=== PATIENT | male | born 1945 | race Caucasian/White ===

== ENCOUNTER 2020-10-03 15:29 | Inpatient (IN) | payer OTHER ==
[~2020-10-03] VITALS: Ht 182.9 cm; Wt 119.5 kg
[~2020-10-03 15:29] MED LIST: ALBU18HF INH; ALPR0.5T7 PO; AMLO-150 PO; ASPI81TA45 PO; B12/1TAB2 IM; CARV6.252 PO; CETI10TA76 PO; CHOL500015 PO; DOCU250C17 PO; ENOX80SY5 SQ; FLUO20CA19 PO; FLUT16SP24 NAS; FURO-93 PO; GABA300C10 PO; HYDR-3248 PO; IPRA12.9 INH; LORA-446 PO; LORA10TA75 PO; LUBI24CA7 PO; OLME20TA17 PO; ONDA4TAB10 PO; OXYC-380 PO; POLY17PO5 PO; PROM25VI5 PO; TOBR5DRO2 EACHEYE; TRAM-47 PO; WARF-36 PO; WARF-36 PO-COUM; WARF2.5T2 PO
--- NOTE | 2020-10-03 15:50 | NUR ---
pt JUSTINA BURGOS from home for evaluation of hypoxia and increasing weakness x2 weeks pt was D/C from [facility] last month after a fall and a L leg fracture 3 months ago. pt has a hx of chronic pain after an injury about 20 years ago and has decreased mobility pt has some wounds that have been chronic and per report, transport was told by the home health RN that pt wounds are not getting better per report pt was in the 80's on RA [employer] and is not on O2 at home. pt also c/o pain as he has not taken his home pain meds today FSBS [employer] 205 pt placed on waffle mattress. no family at bedside
[2020-10-03] MEDS ORDERED: OXYcodone/APAP 10/325MG TABLET PO ONE (16:00)
[2020-10-03] MEDS ORDERED: SODIUM CHLORIDE FLUSH 10ML SYR IVF ONE (16:00)
--- NOTE | 2020-10-03 16:10 | NUR ---
Dr. Dsouza has bene to bedside for eval pt at bedside lab has been to bedside to draw. CXR at bedside
[2020-10-03 16:27] LABS: MEAN CORPUSCULAR HEMOGLOBIN 28.6 pg (27.5-34.5); MEAN CORPUSCULAR HGB CONC 31.6 g/dL (33.2-36.2); MEAN PLATELET VOLUME 8.5 fL (7.4-10.4); PLATELET COUNT 198 x10^3/uL (130-400); RED BLOOD COUNT 3.73 x10^6/uL (4.38-5.82); RED CELL DISTRIBUTION WIDTH 22.1 % (9.4-14.8)
[2020-10-03 16:33] LABS: ALANINE AMINOTRANSFERASE 13 U/L (12-78); ALBUMIN 3.1 g/dL (3.4-5.0); ANION GAP 6 mmol/L (5-15); CALCIUM 8.4 mg/dL (8.5-10.1); CHLORIDE 99 mmol/L (98-107); CREATININE 1.05 mg/dL (0.7-1.3)
[2020-10-03 16:37] LABS: ALKALINE PHOSPHATASE 92 U/L (45-117); BILIRUBIN,TOTAL 1.9 mg/dL (0.2-1.0); TOTAL PROTEIN 6.6 g/dL (6.4-8.2)
[2020-10-03] MEDS ORDERED: OXYcodone/APAP 10/325MG TABLET ONE (16:56)
[2020-10-03] MEDS ORDERED: OXYcodone IR 5MG TABLET PO ONE (17:00)
[2020-10-03] MEDS ORDERED: OXYcodone IR 5MG TABLET ONE (17:06)
--- NOTE | 2020-10-03 17:07 | NUR ---
[facility] REFUSING [facility]COC[facility] DUE TO MEDICATION MAKING PT NAUSEOUS AND NOT THE MEDICATION HER NORMALLY TAKES WHICH IS 20 MG OF OXYCODONE FOR THE PAIN. PT HAS PAIN IN BACK, LEFT LEG, LEFT ANKLE, AND PELVIS. PT PAIN 10/10
[2020-10-03] MEDS ORDERED: FUROSEMIDE 40 MG/4 ML IV ONE (17:30)
[2020-10-03 17:32] LABS: MD YES
[2020-10-03 17:37] LABS: LYMPH#(MANUAL) 1.08 x10^3/uL (1-3.4); LYMPHS% (MANUAL) 18 % (22-44); MONOS% (MANUAL) 15 % (2-9); SEG#(MANUAL) 4.02 x10^3/uL (1.8-6.8); SEGS% (MANUAL) 67 % (42-75)
[2020-10-03 17:38] LABS: <PLATELET ESTIMATE> ADEQUATE; <PLT MORPHOLOGY> NORMAL PLT MORPH; OVALOCYTES 1+
[2020-10-03 17:39] LABS: ANISOCYTOSIS 1+; HYPOCHROMIA 1+; MICROCYTOSIS 1+; STOMATOCYTES 1+
[2020-10-03] MEDS ORDERED: SODIUM CHLORIDE FLUSH 10ML SYR IVF PRN (18:00)
[2020-10-03] MEDS ORDERED: LEVO75TA5 PO (18:03)
[2020-10-03] MEDS ORDERED: ONDA4TAB7 PO (18:03)
[2020-10-03] MEDS ORDERED: OXYC20TA2 PO (18:03)
[2020-10-03] MEDS ORDERED: FUROSEMIDE 40 MG/4 ML ONE (18:05)
--- NOTE | 2020-10-03 18:21 | NUR ---
mcdonald has been inserted per order by [facility] hospitalist. well tolerated. [facility] at bedside for eval for admission
[2020-10-03] MEDS ORDERED: IPRATROPIUM HFA 17 MCG/INH INH PRN (18:30)
[2020-10-03] MEDS ORDERED: OXYcodone/APAP 10/325MG TABLET PO PRN (18:30)
[2020-10-03] MEDS ORDERED: ALBUTEROL HFA 90 MCG/SPRAY INH PRN (18:30)
[2020-10-03] MEDS ORDERED: LEVOMEFOLATE CALCIUM HOMEINJ SCH (18:30)
[2020-10-03] MEDS ORDERED: B12 HOMEINJ SCH (18:30)
[2020-10-03] MEDS ORDERED: B6 HOMEINJ SCH (18:30)
[2020-10-03 19:00] LABS: INTERNATIONAL NORMALIZED RATIO 2.18 (0.93-1.1)
[2020-10-03] MEDS ORDERED: BISACODYL 10 MG SUPP PR PRN (19:00)
[2020-10-03] MEDS ORDERED: POLYETHYLENE GLYCOL 17 GM PACKET PO PRN (19:00)
--- NOTE | 2020-10-03 19:06 | NUR ---
pt has been resting in position of comfort. admit orders have been recieved. awaiting bed assignment pt and at bedside updated on POC report to Sreekanth HOGUE
[2020-10-03] MEDS: LUBIPROSTONE 24 MCG CAPSULE PO SCH (21:00)
[2020-10-03] MEDS: OXYcodone IR 5MG TABLET PO PRN (23:30)
[2020-10-03] MEDS: SODIUM CHLORIDE FLUSH 10ML SYR IVF SCH (23:32)
[2020-10-03] MEDS: CARVEDILOL 6.25 MG TABLET PO SCH (23:33)
[2020-10-04] VITALS: BP 132/75
[2020-10-04] MEDS ORDERED: MIDO10TA PO (02:04)
[2020-10-04] MEDS ORDERED: WARF2.5T32 PO (02:04)
[2020-10-04] MEDS ORDERED: DOCU250C9 PO (02:04)
[2020-10-04] MEDS: OXYcodone IR 5MG TABLET PO PRN ×4 (04:31→20:33)
[2020-10-04 05:34] LABS: MEAN CORPUSCULAR HEMOGLOBIN 28.7 pg (27.5-34.5); MEAN CORPUSCULAR HGB CONC 31.9 g/dL (33.2-36.2); MEAN PLATELET VOLUME 8.5 fL (7.4-10.4); PLATELET COUNT 165 x10^3/uL (130-400); RED CELL DISTRIBUTION WIDTH 21.5 % (9.4-14.8)
[2020-10-04 05:49] LABS: ANION GAP 4 mmol/L (5-15); CALCIUM 8.4 mg/dL (8.5-10.1); CHLORIDE 99 mmol/L (98-107)
[2020-10-04 05:50] LABS: CREATININE 1.08 mg/dL (0.7-1.3)
[2020-10-04 06:02] LABS: MD YES
[2020-10-04 06:04] LABS: ANISOCYTOSIS 1+; EOS% (MANUAL) 2 % (1-7); HYPOCHROMIA 1+; LYMPH#(MANUAL) 1.32 x10^3/uL (1-3.4); LYMPHS% (MANUAL) 27 % (22-44); MONOS#(MANUAL) 0.64 x10^3/uL (0.3-2.7); MONOS% (MANUAL) 13 % (2-9); OVALOCYTES 1+; SEG#(MANUAL) 2.84 x10^3/uL (1.8-6.8); SEGS% (MANUAL) 58 % (42-75)
[2020-10-04 06:05] LABS: TEAR DROPS 1+
[2020-10-04 06:07] LABS: <PLATELET ESTIMATE> ADEQUATE; BASOPHILLIC STIPPLING 1+; LARGE PLATELETS 1+
[2020-10-04] MEDS: LEVOTHYROXINE 75 MCG TABLET PO SCH (06:44)
[2020-10-04] MEDS: LUBIPROSTONE 24 MCG CAPSULE PO SCH ×3 (08:44→20:25)
[2020-10-04] MEDS: CHOLECALCIFEROL 5,000u TAB PO SCH (08:45)
[2020-10-04] MEDS: CARVEDILOL 6.25 MG TABLET PO SCH ×2 (08:45→20:26)
[2020-10-04] MEDS: SENNA/DOCUSATE TABLET PO SCH (08:46)
[2020-10-04] MEDS: FUROSEMIDE 40 MG/4 ML IV SCH ×2 (08:46→18:09)
[2020-10-04] MEDS: SODIUM CHLORIDE FLUSH 10ML SYR IVF SCH ×2 (08:47→23:39)
[2020-10-04 09:00] VITALS: BP 116/69
[2020-10-04 13:35] VITALS: BP 99/69
[2020-10-04] MEDS: ONDANSETRON 4 MG TABLET PO PRN (14:21)
[2020-10-04] MEDS ORDERED: FUROSEMIDE 40 MG/4 ML IV SCH (16:00)
[2020-10-04 16:30] LABS: TROPONIN I < 0.015 ng/mL (0.000-0.045)
[2020-10-04] MEDS: WARFARIN 5 MG TABLET PO-COUM SCH (18:09)
[2020-10-04 20:40] VITALS: BP 103/47
[2020-10-05 01:13] VITALS: BP 102/62
[2020-10-05] MEDS: OXYcodone IR 5MG TABLET PO PRN ×4 (01:17→17:38)
[2020-10-05] MEDS: LEVOTHYROXINE 75 MCG TABLET PO SCH (04:58)
[2020-10-05 05:51] LABS: BASOPHILS % (AUTO) 2 % (0-1); EOSINOPHILS % (AUTO) 2 % (1-7); LYMPHOCYTES % (AUTO) 22 % (22-44); MEAN CORPUSCULAR HEMOGLOBIN 28.5 pg (27.5-34.5); MEAN CORPUSCULAR HGB CONC 31.2 g/dL (33.2-36.2); MEAN PLATELET VOLUME 8.9 fL (7.4-10.4); MONOCYTES % (AUTO) 20 % (2-9); NEUTROPHILS % (AUTO) 54 % (42-75); PLATELET COUNT 202 x10^3/uL (130-400); RED BLOOD COUNT 3.29 x10^6/uL (4.38-5.82); RED CELL DISTRIBUTION WIDTH 21.6 % (9.4-14.8)
[2020-10-05 06:03] LABS: ANION GAP 4 mmol/L (5-15); CALCIUM 8.3 mg/dL (8.5-10.1); CHLORIDE 98 mmol/L (98-107); CHOLESTEROL, TOTAL 75 mg/dL (140-239); CREATININE 1.38 mg/dL (0.7-1.3); MD NO; TRIGLYCERIDES 27 mg/dL (50-200); VLDL CHOLESTEROL 5 mg/dL (0-25)
[2020-10-05 06:04] LABS: CHOL/HDL RATIO 1.7; HDL CHOL % 57 % (26-37); HDL CHOLESTEROL (DIRECT) 43 mg/dL (40-60); LDL CHOLESTEROL,CALCULATED 27 mg/dL (54-169); LDL/HDL RATIO 0.6 (0.5-3.0)
[2020-10-05] MEDS ORDERED: MAGNESIUM SULFATE PMX 2GM/50ML 50 ML IV ONE (08:00)
[2020-10-05 08:20] VITALS: BP 106/65
[2020-10-05 08:20] LABS: TROPONIN I < 0.015 ng/mL (0.000-0.045)
[2020-10-05] MEDS: SENNA/DOCUSATE TABLET PO SCH (09:00)
[2020-10-05] MEDS: SODIUM CHLORIDE FLUSH 10ML SYR IVF SCH ×2 (09:00→21:04)
[2020-10-05] MEDS: LUBIPROSTONE 24 MCG CAPSULE PO SCH ×2 (09:36→21:05)
[2020-10-05] MEDS: FUROSEMIDE 40 MG/4 ML IV SCH (09:37)
[2020-10-05] MEDS: CHOLECALCIFEROL 5,000u TAB PO SCH (09:37)
[2020-10-05] MEDS: CARVEDILOL 6.25 MG TABLET PO SCH ×2 (09:37→21:04)
[2020-10-05 13:28] VITALS: BP 112/76
[2020-10-05 13:47] LABS: INTERNATIONAL NORMALIZED RATIO 1.65 (0.93-1.1); PROTHROMBIN TIME 17.5 Seconds (9.6-11.5)
[2020-10-05] MEDS: WARFARIN 5 MG TABLET PO-COUM SCH (17:38)
[2020-10-05 19:43] VITALS: BP 102/63
[2020-10-06] MEDS: OXYcodone IR 5MG TABLET PO PRN ×4 (00:16→19:44)
[2020-10-06 00:18] VITALS: BP 100/62
[2020-10-06] MEDS: LEVOTHYROXINE 75 MCG TABLET PO SCH (06:35)
[2020-10-06 07:21] VITALS: BP 101/65
[2020-10-06] MEDS: SODIUM CHLORIDE FLUSH 10ML SYR IVF SCH ×2 (07:36→21:28)
[2020-10-06] MEDS: SENNA/DOCUSATE TABLET PO SCH (07:36)
[2020-10-06] MEDS: LUBIPROSTONE 24 MCG CAPSULE PO SCH ×2 (08:08→21:28)
[2020-10-06] MEDS: CHOLECALCIFEROL 5,000u TAB PO SCH (08:08)
[2020-10-06 08:40] LABS: BASOPHILS % (AUTO) 2 % (0-1); EOSINOPHILS % (AUTO) 1 % (1-7); LYMPHOCYTES % (AUTO) 13 % (22-44); MEAN CORPUSCULAR HEMOGLOBIN 28.9 pg (27.5-34.5); MEAN CORPUSCULAR HGB CONC 31.7 g/dL (33.2-36.2); MEAN PLATELET VOLUME 8.3 fL (7.4-10.4); MONOCYTES % (AUTO) 18 % (2-9); NEUTROPHILS % (AUTO) 66 % (42-75); PLATELET COUNT 193 x10^3/uL (130-400); RED BLOOD COUNT 3.28 x10^6/uL (4.38-5.82); RED CELL DISTRIBUTION WIDTH 21.1 % (9.4-14.8)
[2020-10-06 08:42] LABS: MD NO
[2020-10-06 08:50] LABS: INTERNATIONAL NORMALIZED RATIO 1.8 (0.93-1.1)
[2020-10-06 08:53] LABS: CALCIUM 8.1 mg/dL (8.5-10.1)
[2020-10-06 08:59] LABS: ALANINE AMINOTRANSFERASE 11 U/L (12-78); ALBUMIN 2.9 g/dL (3.4-5.0); ALKALINE PHOSPHATASE 77 U/L (45-117); BILIRUBIN,TOTAL 1.7 mg/dL (0.2-1.0); CREATININE 0.99 mg/dL (0.7-1.3)
[2020-10-06 09:15] LABS: ANION GAP 3 mmol/L (5-15); CHLORIDE 97 mmol/L (98-107)
[2020-10-06] MEDS ORDERED: REGADENOSON 0.4 MG/5 ML SYRINGE ONE (10:10)
[2020-10-06] MEDS: CARVEDILOL 6.25 MG TABLET PO SCH ×2 (12:55→21:28)
[2020-10-06 13:16] VITALS: BP 116/78
[2020-10-06] MEDS ORDERED: WARFARIN 5 MG TABLET PO-COUM SCH (18:00)
[2020-10-06] MEDS ORDERED: WARFARIN 2 MG TABLET PO-COUM SCH (18:00)
[2020-10-06 21:05] VITALS: BP 125/79
[2020-10-07] MEDS: OXYcodone IR 5MG TABLET PO PRN ×4 (02:28→20:22)
[2020-10-07 03:00] VITALS: BP 116/62
[2020-10-07] MEDS: LEVOTHYROXINE 75 MCG TABLET PO SCH (05:43)
[2020-10-07] MEDS: ACETAMINOPHEN 325 MG TABLET PO PRN ×2 (05:44→12:01)
[2020-10-07 07:17] VITALS: BP 107/64
[2020-10-07] MEDS: SODIUM CHLORIDE FLUSH 10ML SYR IVF SCH ×2 (08:04→20:28)
[2020-10-07] MEDS: LUBIPROSTONE 24 MCG CAPSULE PO SCH ×2 (08:04→20:23)
[2020-10-07] MEDS: CARVEDILOL 6.25 MG TABLET PO SCH (08:05)
[2020-10-07] MEDS: CHOLECALCIFEROL 5,000u TAB PO SCH (08:05)
[2020-10-07] MEDS: SENNA/DOCUSATE TABLET PO SCH (08:08)
[2020-10-07] MEDS: ASPIRIN 81 MG TABLET EC PO SCH (12:01)
[2020-10-07 12:29] LABS: INTERNATIONAL NORMALIZED RATIO 1.94 (0.93-1.1); PROTHROMBIN TIME 20.5 Seconds (9.6-11.5)
[2020-10-07 12:37] VITALS: BP_SYST 79; BP_SYST 96; BP_DIAS 51; BP_DIAS 60
[2020-10-07 12:59] VITALS: BP 113/72
[2020-10-07] MEDS ORDERED: SODIUM CHLORIDE 0.9%, 500ML IVBOLUS ONE (13:00)
[2020-10-07] MEDS: ONDANSETRON 4 MG TABLET PO PRN (17:23)
[2020-10-07] MEDS ORDERED: WARFARIN 2 MG TABLET PO-COUM ONE (18:00)
[2020-10-07] MEDS: ONDANSETRON 2MG/ML, 2ML IVPush PRN (19:24)
[2020-10-07 20:15] VITALS: BP_SYST 109; BP_DIAS 67; BP_DIAS 72
[2020-10-07] MEDS: ATORVASTATIN 40 MG TABLET PO SCH (20:23)
[2020-10-07 23:26] VITALS: BP 116/74
[2020-10-07] MEDS: CARVEDILOL 3.125 MG TABLET PO SCH (23:32)
[2020-10-08 02:18] VITALS: BP 118/76
[2020-10-08] MEDS: OXYcodone IR 5MG TABLET PO PRN ×5 (02:24→23:13)
[2020-10-08 04:52] LABS: INTERNATIONAL NORMALIZED RATIO 2.08 (0.93-1.1); PROTHROMBIN TIME 21.9 Seconds (9.6-11.5)
[2020-10-08] MEDS: ASPIRIN 81 MG TABLET EC PO SCH (06:19)
[2020-10-08] MEDS: LEVOTHYROXINE 75 MCG TABLET PO SCH (06:20)
[2020-10-08 07:12] VITALS: BP_SYST 112; BP_SYST 98; BP_DIAS 38; BP_DIAS 74
[2020-10-08] MEDS: CARVEDILOL 3.125 MG TABLET PO SCH ×2 (08:17→21:07)
[2020-10-08] MEDS: SODIUM CHLORIDE FLUSH 10ML SYR IVF SCH ×2 (08:18→21:00)
[2020-10-08] MEDS: LUBIPROSTONE 24 MCG CAPSULE PO SCH ×2 (08:18→19:53)
[2020-10-08] MEDS: CHOLECALCIFEROL 5,000u TAB PO SCH (08:18)
[2020-10-08] MEDS: SENNA/DOCUSATE TABLET PO SCH (08:18)
[2020-10-08 09:02] LABS: BASOPHILS % (AUTO) 1 % (0-1); EOSINOPHILS % (AUTO) 1 % (1-7); LYMPHOCYTES % (AUTO) 10 % (22-44); MEAN CORPUSCULAR HEMOGLOBIN 28.9 pg (27.5-34.5); MEAN CORPUSCULAR HGB CONC 31.8 g/dL (33.2-36.2); MONOCYTES % (AUTO) 18 % (2-9); NEUTROPHILS % (AUTO) 69 % (42-75); PLATELET COUNT 205 x10^3/uL (130-400); RED BLOOD COUNT 3.49 x10^6/uL (4.38-5.82); RED CELL DISTRIBUTION WIDTH 21.2 % (9.4-14.8)
[2020-10-08 09:04] LABS: MD NO
[2020-10-08 09:08] LABS: CALCIUM 8.2 mg/dL (8.5-10.1); CHLORIDE 99 mmol/L (98-107); CREATININE 0.85 mg/dL (0.7-1.3)
[2020-10-08 09:17] LABS: ANION GAP 5 mmol/L (5-15)
[2020-10-08] MEDS: ONDANSETRON 2MG/ML, 2ML IVPush PRN ×2 (09:56→13:33)
[2020-10-08] MEDS ORDERED: FUROSEMIDE 20 MG/2 ML IV ONE (10:00)
[2020-10-08 13:43] VITALS: BP 118/70
[2020-10-08] MEDS ORDERED: WARFARIN 3 MG TABLET PO-COUM ONE (18:00)
[2020-10-08 19:19] VITALS: BP 112/74
[2020-10-08 21:06] VITALS: BP 107/71
[2020-10-08] MEDS: ATORVASTATIN 40 MG TABLET PO SCH (21:07)
[2020-10-08] MEDS: MELATONIN 5 MG TABLET PO PRN (21:28)
[2020-10-09 01:02] VITALS: BP 105/69
[2020-10-09] MEDS: ASPIRIN 81 MG TABLET EC PO SCH (04:10)
[2020-10-09] MEDS: LEVOTHYROXINE 75 MCG TABLET PO SCH (04:10)
[2020-10-09] MEDS: OXYcodone IR 5MG TABLET PO PRN ×4 (04:10→20:09)
[2020-10-09 05:37] LABS: INTERNATIONAL NORMALIZED RATIO 2.44 (0.93-1.1); PROTHROMBIN TIME 25.7 Seconds (9.6-11.5)
[2020-10-09 07:01] VITALS: BP 97/63
[2020-10-09] MEDS: CARVEDILOL 3.125 MG TABLET PO SCH ×2 (08:19→21:30)
[2020-10-09] MEDS: SODIUM CHLORIDE FLUSH 10ML SYR IVF SCH ×2 (08:22→20:40)
[2020-10-09] MEDS: CHOLECALCIFEROL 5,000u TAB PO SCH (08:22)
[2020-10-09] MEDS: LUBIPROSTONE 24 MCG CAPSULE PO SCH ×2 (08:23→20:40)
[2020-10-09] MEDS: SENNA/DOCUSATE TABLET PO SCH (08:23)
[2020-10-09 12:17] VITALS: BP 110/72
[2020-10-09] MEDS: ONDANSETRON 2MG/ML, 2ML IVPush PRN ×2 (13:48→17:28)
[2020-10-09] MEDS ORDERED: WARFARIN 2.5 MG TABLET PO-COUM ONE (18:00)
[2020-10-09 20:08] VITALS: BP 107/67
[2020-10-09 21:30] VITALS: BP 118/71
[2020-10-09] MEDS: ATORVASTATIN 40 MG TABLET PO SCH (21:30)
[2020-10-10] MEDS: OXYcodone IR 5MG TABLET PO PRN ×4 (02:18→18:48)
[2020-10-10 02:20] VITALS: BP 127/79
[2020-10-10] MEDS: ONDANSETRON 4 MG TABLET PO PRN ×2 (02:23→02:24)
[2020-10-10] MEDS: ONDANSETRON 2MG/ML, 2ML IVPush PRN ×2 (02:26→09:30)
[2020-10-10] MEDS: LEVOTHYROXINE 75 MCG TABLET PO SCH (04:11)
[2020-10-10] MEDS: ASPIRIN 81 MG TABLET EC PO SCH (04:11)
[2020-10-10] MEDS: MELATONIN 5 MG TABLET PO PRN (04:11)
[2020-10-10 06:03] LABS: MEAN CORPUSCULAR HEMOGLOBIN 28.5 pg (27.5-34.5); MEAN CORPUSCULAR HGB CONC 32.3 g/dL (33.2-36.2); MEAN PLATELET VOLUME 9.3 fL (7.4-10.4); PLATELET COUNT 195 x10^3/uL (130-400); RED CELL DISTRIBUTION WIDTH 21.3 % (9.4-14.8)
[2020-10-10 06:12] LABS: CHLORIDE 99 mmol/L (98-107)
[2020-10-10 06:18] LABS: ANION GAP 3 mmol/L (5-15); CALCIUM 8.5 mg/dL (8.5-10.1); CREATININE 0.89 mg/dL (0.7-1.3)
[2020-10-10 06:19] LABS: INTERNATIONAL NORMALIZED RATIO 2.23 (0.93-1.1); PROTHROMBIN TIME 23.5 Seconds (9.6-11.5)
[2020-10-10 06:38] LABS: MD YES
[2020-10-10 06:39] LABS: BAND#(MANUAL) 0.19 x10^3/uL; BANDS%(MANUAL) 2 % (0-7); EOS#(MANUAL) 0.19 x10^3/uL (0.0-0.4); EOS% (MANUAL) 2 % (1-7); LYMPH#(MANUAL) 0.93 x10^3/uL (1-3.4); LYMPHS% (MANUAL) 10 % (22-44); REACTIVE LYMPHS # (MANUAL) 0.09 x10^3/uL (0-0); REACTIVE LYMPHS % (MANUAL) 1 % (0-0)
[2020-10-10 06:40] LABS: ANISOCYTOSIS 2+; HYPOCHROMIA 1+; MICROCYTOSIS 1+; MONOS% (MANUAL) 15 % (2-9); SEG#(MANUAL) 6.51 x10^3/uL (1.8-6.8); SEGS% (MANUAL) 70 % (42-75)
[2020-10-10 06:41] LABS: <PLATELET ESTIMATE> ADEQUATE; <PLT MORPHOLOGY> NORMAL PLT MORPH; OVALOCYTES 1+
[2020-10-10 07:09] VITALS: BP 104/64
[2020-10-10] MEDS: LUBIPROSTONE 24 MCG CAPSULE PO SCH ×2 (09:00→21:00)
[2020-10-10] MEDS: SENNA/DOCUSATE TABLET PO SCH (09:00)
[2020-10-10] MEDS: SODIUM CHLORIDE FLUSH 10ML SYR IVF SCH ×2 (09:26→21:00)
[2020-10-10] MEDS: CHOLECALCIFEROL 5,000u TAB PO SCH (09:26)
[2020-10-10] MEDS: CARVEDILOL 3.125 MG TABLET PO SCH ×2 (09:26→21:00)
[2020-10-10 13:31] VITALS: BP 110/72
[2020-10-10 16:54] VITALS: BP 125/62
[2020-10-10] MEDS ORDERED: WARFARIN 3 MG TABLET PO-COUM ONE (18:30)
[2020-10-10 19:48] VITALS: BP 127/74
[2020-10-10 20:54] VITALS: BP 123/82
[2020-10-10] MEDS: ATORVASTATIN 40 MG TABLET PO SCH (21:00)
[2020-10-11 01:21] VITALS: BP 101/66
[2020-10-11] MEDS: OXYcodone IR 5MG TABLET PO PRN ×5 (01:23→22:57)
[2020-10-11] MEDS: ASPIRIN 81 MG TABLET EC PO SCH (04:43)
[2020-10-11] MEDS: MELATONIN 5 MG TABLET PO PRN (04:43)
[2020-10-11] MEDS: LEVOTHYROXINE 75 MCG TABLET PO SCH (04:43)
[2020-10-11] MEDS: ONDANSETRON 2MG/ML, 2ML IVPush PRN ×4 (05:33→22:57)
[2020-10-11 06:11] LABS: INTERNATIONAL NORMALIZED RATIO 2.42 (0.93-1.1); PROTHROMBIN TIME 25.4 Seconds (9.6-11.5)
[2020-10-11 08:06] VITALS: BP 119/77
[2020-10-11] MEDS: SENNA/DOCUSATE TABLET PO SCH (09:00)
[2020-10-11] MEDS: SODIUM CHLORIDE FLUSH 10ML SYR IVF SCH ×2 (09:00→20:44)
[2020-10-11] MEDS: CHOLECALCIFEROL 5,000u TAB PO SCH (09:00)
[2020-10-11] MEDS: LUBIPROSTONE 24 MCG CAPSULE PO SCH ×3 (09:00→20:43)
[2020-10-11] MEDS: CARVEDILOL 3.125 MG TABLET PO SCH ×2 (09:23→20:44)
[2020-10-11 12:44] VITALS: BP 104/69
[2020-10-11] MEDS ORDERED: SIME40DR41 PO (14:14)
[2020-10-11] MEDS ORDERED: SIMETHICONE 80 MG CHEW TAB PO PRN ×2 (14:30→15:30)
[2020-10-11] MEDS ORDERED: SIMETHICONE DROPS 40 MG/0.6 ML BOTTLE PO PRN (15:00)
[2020-10-11] MEDS: ONDANSETRON 4 MG TABLET PO PRN (17:25)
[2020-10-11] MEDS ORDERED: WARFARIN 3 MG TABLET PO-COUM ONE (18:00)
[2020-10-11 20:33] VITALS: BP 107/71
[2020-10-11] MEDS: ATORVASTATIN 40 MG TABLET PO SCH (20:43)
[2020-10-11] MEDS: SIMETHICONE DROPS 40 MG/0.6 ML BOTTLE PO PRN (22:28)
[2020-10-12 01:58] VITALS: BP 104/65
[2020-10-12 03:45] VITALS: BP 108/98
[2020-10-12] MEDS: OXYcodone IR 5MG TABLET PO PRN ×4 (03:45→20:33)
[2020-10-12 05:17] LABS: BASOPHILS % (AUTO) 2 % (0-1); EOSINOPHILS % (AUTO) 2 % (1-7); LYMPHOCYTES % (AUTO) 15 % (22-44); MEAN CORPUSCULAR HEMOGLOBIN 28.6 pg (27.5-34.5); MEAN PLATELET VOLUME 9.1 fL (7.4-10.4); MONOCYTES % (AUTO) 23 % (2-9); NEUTROPHILS % (AUTO) 59 % (42-75); PLATELET COUNT 216 x10^3/uL (130-400)
[2020-10-12 05:18] LABS: MD NO
[2020-10-12 05:19] LABS: INTERNATIONAL NORMALIZED RATIO 2.9 (0.93-1.1); PROTHROMBIN TIME 30.4 Seconds (9.6-11.5)
[2020-10-12 05:21] LABS: ANION GAP 4 mmol/L (5-15); CALCIUM 8.3 mg/dL (8.5-10.1); CHLORIDE 100 mmol/L (98-107); CREATININE 0.95 mg/dL (0.7-1.3)
[2020-10-12] MEDS: ONDANSETRON 2MG/ML, 2ML IVPush PRN ×2 (05:30→15:35)
[2020-10-12] MEDS: LEVOTHYROXINE 75 MCG TABLET PO SCH (05:30)
[2020-10-12] MEDS: ASPIRIN 81 MG TABLET EC PO SCH (05:30)
[2020-10-12 08:08] VITALS: BP 120/69
[2020-10-12] MEDS: LUBIPROSTONE 24 MCG CAPSULE PO SCH ×2 (08:09→20:32)
[2020-10-12] MEDS: CHOLECALCIFEROL 5,000u TAB PO SCH (08:10)
[2020-10-12] MEDS: SENNA/DOCUSATE TABLET PO SCH (08:10)
[2020-10-12] MEDS: CARVEDILOL 3.125 MG TABLET PO SCH ×2 (08:10→20:32)
[2020-10-12] MEDS: SODIUM CHLORIDE FLUSH 10ML SYR IVF SCH ×2 (08:11→20:34)
[2020-10-12 08:20] VITALS: BP 106/63
[2020-10-12] MEDS: SCOPOLAMINE PATCH, 1.5MG PATCH.TD72 TD SCH (12:24)
[2020-10-12 15:00] VITALS: BP 107/64
[2020-10-12] MEDS ORDERED: WARFARIN 2 MG TABLET PO-COUM ONE (18:00)
[2020-10-12 20:30] VITALS: BP 122/74
[2020-10-12] MEDS: ATORVASTATIN 40 MG TABLET PO SCH (20:33)
[2020-10-13 00:14] VITALS: BP 104/62
[2020-10-13] MEDS: OXYcodone IR 5MG TABLET PO PRN ×5 (00:23→20:53)
[2020-10-13] MEDS: MELATONIN 5 MG TABLET PO PRN ×2 (00:23→20:53)
[2020-10-13] MEDS: SIMETHICONE DROPS 40 MG/0.6 ML BOTTLE PO PRN ×3 (00:28→21:05)
[2020-10-13] MEDS: LEVOTHYROXINE 75 MCG TABLET PO SCH (06:08)
[2020-10-13] MEDS: ASPIRIN 81 MG TABLET EC PO SCH (06:08)
[2020-10-13 07:05] VITALS: BP 97/55
[2020-10-13] MEDS: CARVEDILOL 3.125 MG TABLET PO SCH ×2 (09:00→20:53)
[2020-10-13] MEDS: CHOLECALCIFEROL 5,000u TAB PO SCH (09:01)
[2020-10-13] MEDS: SENNA/DOCUSATE TABLET PO SCH (09:01)
[2020-10-13] MEDS: LUBIPROSTONE 24 MCG CAPSULE PO SCH ×3 (09:01→20:53)
[2020-10-13] MEDS: SODIUM CHLORIDE FLUSH 10ML SYR IVF SCH ×2 (09:01→20:52)
[2020-10-13 09:13] LABS: INTERNATIONAL NORMALIZED RATIO 2.58 (0.93-1.1); PROTHROMBIN TIME 27.1 Seconds (9.6-11.5)
[2020-10-13] MEDS: ONDANSETRON 2MG/ML, 2ML IVPush PRN ×2 (11:33→20:58)
[2020-10-13 12:45] VITALS: BP 100/62
[2020-10-13] MEDS ORDERED: WARFARIN 3 MG TABLET PO-COUM ONE (18:00)
[2020-10-13 18:38] VITALS: BP 123/70
[2020-10-13] MEDS: ATORVASTATIN 40 MG TABLET PO SCH (20:53)
[2020-10-14] MEDS: OXYcodone IR 5MG TABLET PO PRN ×5 (01:45→20:50)
[2020-10-14] MEDS: SIMETHICONE DROPS 40 MG/0.6 ML BOTTLE PO PRN ×2 (01:45→16:51)
[2020-10-14 02:20] VITALS: BP 108/67
[2020-10-14] MEDS: LEVOTHYROXINE 75 MCG TABLET PO SCH (05:40)
[2020-10-14] MEDS: ASPIRIN 81 MG TABLET EC PO SCH (05:40)
[2020-10-14 06:37] LABS: ANION GAP 3 mmol/L (5-15); CALCIUM 8.5 mg/dL (8.5-10.1); CHLORIDE 99 mmol/L (98-107); INTERNATIONAL NORMALIZED RATIO 2.55 (0.93-1.1); PROTHROMBIN TIME 26.8 Seconds (9.6-11.5)
[2020-10-14 07:07] VITALS: BP 105/56
[2020-10-14] MEDS: SENNA/DOCUSATE TABLET PO SCH (08:20)
[2020-10-14] MEDS: CARVEDILOL 3.125 MG TABLET PO SCH ×2 (08:21→20:49)
[2020-10-14] MEDS: FUROSEMIDE 20 MG TABLET PO SCH (08:22)
[2020-10-14] MEDS: SODIUM CHLORIDE FLUSH 10ML SYR IVF SCH ×2 (08:22→20:50)
[2020-10-14] MEDS: LUBIPROSTONE 24 MCG CAPSULE PO SCH ×2 (08:22→20:50)
[2020-10-14] MEDS: CHOLECALCIFEROL 5,000u TAB PO SCH (08:22)
[2020-10-14 08:24] VITALS: BP 114/46
[2020-10-14] MEDS: ONDANSETRON 2MG/ML, 2ML IVPush PRN ×2 (10:35→16:51)
[2020-10-14 15:16] VITALS: BP 105/66
[2020-10-14] MEDS ORDERED: WARFARIN 2.5 MG TABLET PO-COUM ONE (18:00)
[2020-10-14 18:59] VITALS: BP 101/61
[2020-10-14] MEDS: ATORVASTATIN 40 MG TABLET PO SCH (20:49)
[2020-10-14] MEDS: MELATONIN 5 MG TABLET PO PRN (20:49)
[2020-10-15 00:50] VITALS: BP 104/69
[2020-10-15] MEDS: OXYcodone IR 5MG TABLET PO PRN ×5 (02:44→21:21)
[2020-10-15 05:03] LABS: INTERNATIONAL NORMALIZED RATIO 2.45 (0.93-1.1); PROTHROMBIN TIME 25.8 Seconds (9.6-11.5)
[2020-10-15] MEDS: ASPIRIN 81 MG TABLET EC PO SCH (05:45)
[2020-10-15] MEDS: LEVOTHYROXINE 75 MCG TABLET PO SCH (05:45)
[2020-10-15] MEDS: SODIUM CHLORIDE FLUSH 10ML SYR IVF SCH ×2 (07:19→21:20)
[2020-10-15] MEDS: CARVEDILOL 3.125 MG TABLET PO SCH ×2 (07:45→21:20)
[2020-10-15] MEDS: CHOLECALCIFEROL 5,000u TAB PO SCH (07:46)
[2020-10-15] MEDS: SENNA/DOCUSATE TABLET PO SCH (07:46)
[2020-10-15] MEDS: FUROSEMIDE 20 MG TABLET PO SCH (07:46)
[2020-10-15] MEDS: LUBIPROSTONE 24 MCG CAPSULE PO SCH ×2 (07:53→21:20)
[2020-10-15] MEDS: ONDANSETRON 2MG/ML, 2ML IVPush PRN ×3 (09:15→21:20)
[2020-10-15 09:35] VITALS: BP 92/62
[2020-10-15] MEDS ORDERED: POLYETHYLENE GLYCOL 17 GM PACKET NG SCH (11:00)
[2020-10-15 13:09] VITALS: BP 92/59
[2020-10-15] MEDS: SCOPOLAMINE PATCH, 1.5MG PATCH.TD72 TD SCH ×2 (13:20→13:22)
[2020-10-15] MEDS ORDERED: WARFARIN 2.5 MG TABLET PO-COUM ONE (18:00)
[2020-10-15 19:32] VITALS: BP 110/69
[2020-10-15] MEDS: ATORVASTATIN 40 MG TABLET PO SCH (21:20)
[2020-10-15] MEDS: POLYETHYLENE GLYCOL 17 GM PACKET PO SCH (21:21)
[2020-10-15] MEDS: SIMETHICONE DROPS 40 MG/0.6 ML BOTTLE PO PRN (23:53)
[2020-10-16] VITALS (8 sets, daily range): BP systolic 85–121; BP diastolic 49–81
[2020-10-16] MEDS: MELATONIN 5 MG TABLET PO PRN ×2 (00:02→20:05)
[2020-10-16] MEDS: OXYcodone IR 5MG TABLET PO PRN ×6 (02:21→21:56)
[2020-10-16 04:49] LABS: BASOPHILS % (AUTO) 2 % (0-1); EOSINOPHILS % (AUTO) 2 % (1-7); LYMPHOCYTES % (AUTO) 15 % (22-44); MEAN PLATELET VOLUME 8.6 fL (7.4-10.4); MONOCYTES % (AUTO) 17 % (2-9); NEUTROPHILS % (AUTO) 65 % (42-75); PLATELET COUNT 291 x10^3/uL (130-400); RED BLOOD COUNT 3.32 x10^6/uL (4.38-5.82); RED CELL DISTRIBUTION WIDTH 21.6 % (9.4-14.8)
[2020-10-16 04:57] LABS: INTERNATIONAL NORMALIZED RATIO 2.42 (0.93-1.1); PROTHROMBIN TIME 25.5 Seconds (9.6-11.5)
[2020-10-16 04:58] LABS: ANION GAP 2 mmol/L (5-15); CALCIUM 8.9 mg/dL (8.5-10.1); CHLORIDE 99 mmol/L (98-107); CREATININE 0.93 mg/dL (0.7-1.3)
[2020-10-16 05:02] LABS: MD NO
[2020-10-16] MEDS: ASPIRIN 81 MG TABLET EC PO SCH (06:01)
[2020-10-16] MEDS: LEVOTHYROXINE 75 MCG TABLET PO SCH (06:01)
[2020-10-16] MEDS: CARVEDILOL 3.125 MG TABLET PO SCH ×2 (08:13→20:05)
[2020-10-16] MEDS: FUROSEMIDE 20 MG TABLET PO SCH (08:13)
[2020-10-16] MEDS: SENNA/DOCUSATE TABLET PO SCH (08:13)
[2020-10-16] MEDS: POLYETHYLENE GLYCOL 17 GM PACKET PO SCH ×2 (08:13→21:00)
[2020-10-16] MEDS: LUBIPROSTONE 24 MCG CAPSULE PO SCH ×2 (08:13→20:05)
[2020-10-16] MEDS: SODIUM CHLORIDE FLUSH 10ML SYR IVF SCH ×2 (08:14→20:09)
[2020-10-16] MEDS: CHOLECALCIFEROL 5,000u TAB PO SCH (08:14)
[2020-10-16] MEDS: ONDANSETRON 2MG/ML, 2ML IVPush PRN ×2 (12:40→20:12)
[2020-10-16] MEDS ORDERED: WARFARIN 2.5 MG TABLET PO-COUM ONE (18:00)
[2020-10-16] MEDS: ATORVASTATIN 40 MG TABLET PO SCH (20:05)
[2020-10-16] MEDS: SIMETHICONE DROPS 40 MG/0.6 ML BOTTLE PO PRN (20:06)
[2020-10-17 02:13] VITALS: BP 97/57
[2020-10-17] MEDS: LEVOTHYROXINE 75 MCG TABLET PO SCH (04:40)
[2020-10-17] MEDS: ASPIRIN 81 MG TABLET EC PO SCH (04:40)
[2020-10-17] MEDS: OXYcodone IR 5MG TABLET PO PRN ×4 (04:40→21:47)
[2020-10-17 05:37] LABS: INTERNATIONAL NORMALIZED RATIO 2.31 (0.93-1.1); PROTHROMBIN TIME 24.3 Seconds (9.6-11.5)
[2020-10-17 05:38] LABS: ANION GAP 1 mmol/L (5-15); CALCIUM 8.7 mg/dL (8.5-10.1); CHLORIDE 101 mmol/L (98-107)
[2020-10-17 05:41] LABS: CREATININE 0.99 mg/dL (0.7-1.3)
[2020-10-17 06:33] VITALS: BP 99/65
[2020-10-17] MEDS: LUBIPROSTONE 24 MCG CAPSULE PO SCH ×2 (08:47→20:35)
[2020-10-17] MEDS: SENNA/DOCUSATE TABLET PO SCH (08:47)
[2020-10-17] MEDS: CARVEDILOL 3.125 MG TABLET PO SCH ×3 (08:47→21:03)
[2020-10-17] MEDS: CHOLECALCIFEROL 5,000u TAB PO SCH (08:47)
[2020-10-17] MEDS: SODIUM CHLORIDE FLUSH 10ML SYR IVF SCH ×2 (08:48→20:35)
[2020-10-17] MEDS: POLYETHYLENE GLYCOL 17 GM PACKET PO SCH ×2 (08:48→21:03)
[2020-10-17 13:11] VITALS: BP 92/58
[2020-10-17] MEDS ORDERED: WARFARIN 3 MG TABLET PO-COUM ONE (18:00)
[2020-10-17 19:41] VITALS: BP 106/65
[2020-10-17] MEDS: MELATONIN 5 MG TABLET PO PRN (20:35)
[2020-10-17] MEDS: ATORVASTATIN 40 MG TABLET PO SCH (20:35)
[2020-10-17] MEDS: ONDANSETRON 2MG/ML, 2ML IVPush PRN (20:35)
[2020-10-17] MEDS: SIMETHICONE DROPS 40 MG/0.6 ML BOTTLE PO PRN (20:36)
[2020-10-17] MEDS ORDERED: TRAZODONE 50MG TABLET PO SCH (21:00)
[2020-10-18 03:41] VITALS: BP 103/62
[2020-10-18] MEDS: OXYcodone IR 5MG TABLET PO PRN ×3 (03:50→22:17)
[2020-10-18] MEDS: SIMETHICONE DROPS 40 MG/0.6 ML BOTTLE PO PRN (03:54)
[2020-10-18 05:18] LABS: INTERNATIONAL NORMALIZED RATIO 2.48 (0.93-1.1); PROTHROMBIN TIME 26.1 Seconds (9.6-11.5)
[2020-10-18] MEDS: ASPIRIN 81 MG TABLET EC PO SCH (06:13)
[2020-10-18] MEDS: LEVOTHYROXINE 75 MCG TABLET PO SCH (06:14)
[2020-10-18 06:45] VITALS: BP 106/67
[2020-10-18] MEDS: LUBIPROSTONE 24 MCG CAPSULE PO SCH ×2 (08:46→22:15)
[2020-10-18] MEDS: SODIUM CHLORIDE FLUSH 10ML SYR IVF SCH ×2 (08:46→22:18)
[2020-10-18] MEDS: CARVEDILOL 3.125 MG TABLET PO SCH ×2 (08:46→22:18)
[2020-10-18] MEDS: POLYETHYLENE GLYCOL 17 GM PACKET PO SCH ×2 (08:46→22:18)
[2020-10-18] MEDS: CHOLECALCIFEROL 5,000u TAB PO SCH (08:47)
[2020-10-18] MEDS: SENNA/DOCUSATE TABLET PO SCH (08:47)
[2020-10-18] MEDS: ONDANSETRON 2MG/ML, 2ML IVPush PRN (09:57)
[2020-10-18] MEDS: SCOPOLAMINE PATCH, 1.5MG PATCH.TD72 TD SCH (11:20)
[2020-10-18 13:06] VITALS: BP 138/90
[2020-10-18] MEDS ORDERED: WARFARIN 2.5 MG TABLET PO-COUM ONE (18:00)
[2020-10-18 19:58] VITALS: BP 111/67
[2020-10-18] MEDS: TRAZODONE 50MG TABLET PO SCH (22:15)
[2020-10-18] MEDS: ATORVASTATIN 40 MG TABLET PO SCH (22:15)
[2020-10-19 00:14] VITALS: BP 96/57
[2020-10-19] MEDS: OXYcodone IR 5MG TABLET PO PRN ×5 (02:30→20:02)
[2020-10-19 04:49] LABS: INTERNATIONAL NORMALIZED RATIO 2.28 (0.93-1.1)
[2020-10-19 04:52] LABS: ANION GAP 5 mmol/L (5-15); CALCIUM 8.4 mg/dL (8.5-10.1); CHLORIDE 97 mmol/L (98-107); CREATININE 0.82 mg/dL (0.7-1.3)
[2020-10-19] MEDS: ASPIRIN 81 MG TABLET EC PO SCH (06:33)
[2020-10-19] MEDS: LEVOTHYROXINE 75 MCG TABLET PO SCH (06:33)
[2020-10-19 07:15] VITALS: BP 100/67
[2020-10-19] MEDS ORDERED: FUROSEMIDE 40 MG/4 ML IV SCH (09:00)
[2020-10-19] MEDS: POLYETHYLENE GLYCOL 17 GM PACKET PO SCH ×2 (09:00→21:00)
[2020-10-19] MEDS: CARVEDILOL 3.125 MG TABLET PO SCH (09:00)
[2020-10-19] MEDS: SENNA/DOCUSATE TABLET PO SCH (09:00)
[2020-10-19] MEDS: CHOLECALCIFEROL 5,000u TAB PO SCH (10:21)
[2020-10-19] MEDS: SODIUM CHLORIDE FLUSH 10ML SYR IVF SCH ×2 (10:23→20:03)
[2020-10-19] MEDS: ONDANSETRON 2MG/ML, 2ML IVPush PRN ×3 (10:27→22:08)
[2020-10-19] MEDS: LUBIPROSTONE 24 MCG CAPSULE PO SCH ×2 (13:03→21:00)
[2020-10-19] MEDS: FUROSEMIDE 40 MG/4 ML IV SCH (13:03)
[2020-10-19 13:40] VITALS: BP 124/77
[2020-10-19] MEDS ORDERED: WARFARIN 2 MG TABLET PO-COUM ONE (17:12)
[2020-10-19] MEDS ORDERED: WARFARIN 1 MG TABLET PO-COUM ONE (17:12)
[2020-10-19] MEDS ORDERED: WARFARIN 2.5 MG TABLET PO-COUM ONE (18:00)
[2020-10-19 18:15] VITALS: BP 132/84
[2020-10-19] MEDS: TRAZODONE 50MG TABLET PO SCH (20:00)
[2020-10-19] MEDS: ATORVASTATIN 40 MG TABLET PO SCH (20:00)
[2020-10-19] MEDS: MELATONIN 5 MG TABLET PO PRN (22:07)
[2020-10-19] MEDS: SIMETHICONE DROPS 40 MG/0.6 ML BOTTLE PO PRN (22:07)
[2020-10-20] MEDS: OXYcodone IR 5MG TABLET PO PRN ×6 (00:24→21:39)
[2020-10-20 01:21] VITALS: BP 106/67
[2020-10-20 05:34] LABS: INTERNATIONAL NORMALIZED RATIO 2.06 (0.93-1.1); PROTHROMBIN TIME 21.7 Seconds (9.6-11.5)
[2020-10-20 05:40] LABS: ANION GAP 4 mmol/L (5-15); CALCIUM 8.4 mg/dL (8.5-10.1); CHLORIDE 96 mmol/L (98-107)
[2020-10-20] MEDS: ASPIRIN 81 MG TABLET EC PO SCH (06:00)
[2020-10-20] MEDS: LEVOTHYROXINE 75 MCG TABLET PO SCH (06:16)
[2020-10-20 07:50] VITALS: BP 106/72
[2020-10-20] MEDS: SODIUM CHLORIDE FLUSH 10ML SYR IVF SCH ×2 (09:00→21:10)
[2020-10-20] MEDS: SENNA/DOCUSATE TABLET PO SCH (09:00)
[2020-10-20] MEDS: POLYETHYLENE GLYCOL 17 GM PACKET PO SCH ×2 (09:00→21:00)
[2020-10-20] MEDS: LUBIPROSTONE 24 MCG CAPSULE PO SCH ×2 (09:00→21:00)
[2020-10-20] MEDS: FUROSEMIDE 40 MG/4 ML IV SCH (09:14)
[2020-10-20] MEDS: CHOLECALCIFEROL 5,000u TAB PO SCH (09:31)
[2020-10-20] MEDS: SIMETHICONE DROPS 40 MG/0.6 ML BOTTLE PO PRN ×2 (09:39→21:09)
[2020-10-20 09:40] VITALS: BP 107/64
[2020-10-20 12:30] VITALS: BP 115/71
[2020-10-20] MEDS ORDERED: OXYcodone 5 MG/5 ML ORAL.SOL UDC ONE (13:28)
[2020-10-20] MEDS: ONDANSETRON 2MG/ML, 2ML IVPush PRN (13:32)
[2020-10-20] MEDS ORDERED: WARFARIN 3 MG TABLET PO-COUM ONE (18:00)
[2020-10-20 19:34] VITALS: BP 105/65
[2020-10-20] MEDS: ATORVASTATIN 40 MG TABLET PO SCH (21:09)
[2020-10-20] MEDS: TRAZODONE 50MG TABLET PO SCH (21:09)
[2020-10-21] MEDS: OXYcodone IR 5MG TABLET PO PRN ×5 (01:34→21:02)
[2020-10-21 01:36] VITALS: BP 101/69
[2020-10-21] MEDS: ONDANSETRON 2MG/ML, 2ML IVPush PRN ×4 (03:21→23:38)
[2020-10-21] MEDS: ASPIRIN 81 MG TABLET EC PO SCH (04:56)
[2020-10-21] MEDS: LEVOTHYROXINE 75 MCG TABLET PO SCH (04:58)
[2020-10-21 05:13] LABS: INTERNATIONAL NORMALIZED RATIO 1.8 (0.93-1.1)
[2020-10-21 07:25] VITALS: BP 103/65
[2020-10-21] MEDS: SENNA/DOCUSATE TABLET PO SCH (08:38)
[2020-10-21] MEDS: POLYETHYLENE GLYCOL 17 GM PACKET PO SCH ×2 (08:38→21:00)
[2020-10-21] MEDS: LUBIPROSTONE 24 MCG CAPSULE PO SCH ×2 (08:39→21:00)
[2020-10-21] MEDS: CHOLECALCIFEROL 5,000u TAB PO SCH (08:39)
[2020-10-21] MEDS: FUROSEMIDE 40 MG/4 ML IV SCH (08:40)
[2020-10-21] MEDS: SODIUM CHLORIDE FLUSH 10ML SYR IVF SCH ×2 (08:40→21:01)
[2020-10-21] MEDS: LACTULOSE 10 GM/15 ML UDC PO SCH ×2 (09:30→21:02)
[2020-10-21] MEDS: SCOPOLAMINE PATCH, 1.5MG PATCH.TD72 TD SCH (09:59)
[2020-10-21 12:24] VITALS: BP 87/54
[2020-10-21] MEDS ORDERED: WARFARIN 2 MG TABLET PO-COUM ONE (18:00)
[2020-10-21 19:22] VITALS: BP 100/62
[2020-10-21] MEDS: SIMETHICONE DROPS 40 MG/0.6 ML BOTTLE PO PRN (21:01)
[2020-10-21] MEDS: ATORVASTATIN 40 MG TABLET PO SCH (21:02)
[2020-10-21] MEDS: MELATONIN 5 MG TABLET PO PRN (21:02)
[2020-10-21] MEDS: TRAZODONE 50MG TABLET PO SCH (21:03)
[2020-10-22 00:37] VITALS: BP 95/57
[2020-10-22] MEDS: OXYcodone IR 5MG TABLET PO PRN ×4 (01:08→20:29)
[2020-10-22 04:50] LABS: BASOPHILS % (AUTO) 1 % (0-1); EOSINOPHILS % (AUTO) 2 % (1-7); LYMPHOCYTES % (AUTO) 18 % (22-44); MEAN CORPUSCULAR HEMOGLOBIN 29.3 pg (27.5-34.5); MEAN CORPUSCULAR HGB CONC 32.4 g/dL (33.2-36.2); MEAN PLATELET VOLUME 8.5 fL (7.4-10.4); MONOCYTES % (AUTO) 16 % (2-9); NEUTROPHILS % (AUTO) 63 % (42-75); PLATELET COUNT 263 x10^3/uL (130-400); RED BLOOD COUNT 2.98 x10^6/uL (4.38-5.82)
[2020-10-22 04:56] LABS: INTERNATIONAL NORMALIZED RATIO 1.84 (0.93-1.1); PROTHROMBIN TIME 19.5 Seconds (9.6-11.5)
[2020-10-22 04:57] LABS: ANION GAP 5 mmol/L (5-15); CALCIUM 8.2 mg/dL (8.5-10.1); CHLORIDE 95 mmol/L (98-107); CREATININE 1.09 mg/dL (0.7-1.3)
[2020-10-22] MEDS: LEVOTHYROXINE 75 MCG TABLET PO SCH (05:38)
[2020-10-22] MEDS: ASPIRIN 81 MG TABLET EC PO SCH (05:38)
[2020-10-22 05:51] LABS: MD SCAN
[2020-10-22 06:59] VITALS: BP 92/58
[2020-10-22] MEDS: SENNA/DOCUSATE TABLET PO SCH (08:05)
[2020-10-22] MEDS: LUBIPROSTONE 24 MCG CAPSULE PO SCH ×2 (08:05→20:25)
[2020-10-22] MEDS: CHOLECALCIFEROL 5,000u TAB PO SCH (08:05)
[2020-10-22] MEDS: LACTULOSE 10 GM/15 ML UDC PO SCH ×2 (08:06→20:25)
[2020-10-22] MEDS: FUROSEMIDE 40 MG/4 ML IV SCH (08:06)
[2020-10-22] MEDS: POLYETHYLENE GLYCOL 17 GM PACKET PO SCH ×2 (08:06→20:25)
[2020-10-22] MEDS: SODIUM CHLORIDE FLUSH 10ML SYR IVF SCH ×2 (08:09→20:29)
[2020-10-22 12:37] VITALS: BP 131/74
[2020-10-22] MEDS ORDERED: OXYcodone 5 MG/5 ML ORAL.SOL UDC ONE (13:44)
[2020-10-22] MEDS: ONDANSETRON 2MG/ML, 2ML IVPush PRN (16:57)
[2020-10-22] MEDS ORDERED: WARFARIN 2 MG TABLET PO-COUM ONE (18:00)
[2020-10-22 18:52] VITALS: BP 100/65
[2020-10-22] MEDS: TRAZODONE 50MG TABLET PO SCH (20:25)
[2020-10-22] MEDS: ATORVASTATIN 40 MG TABLET PO SCH (20:25)
[2020-10-22] MEDS: MELATONIN 5 MG TABLET PO PRN (20:29)
[2020-10-23] MEDS: OXYcodone IR 5MG TABLET PO PRN ×4 (00:30→19:33)
[2020-10-23 02:24] VITALS: BP 108/68
[2020-10-23] MEDS: ASPIRIN 81 MG TABLET EC PO SCH (04:38)
[2020-10-23] MEDS: LEVOTHYROXINE 75 MCG TABLET PO SCH (04:38)
[2020-10-23 06:35] VITALS: BP 98/63
[2020-10-23 08:01] LABS: INTERNATIONAL NORMALIZED RATIO 2.12 (0.93-1.1); PROTHROMBIN TIME 22.4 Seconds (9.6-11.5)
[2020-10-23] MEDS: LACTULOSE 10 GM/15 ML UDC PO SCH ×2 (08:04→19:35)
[2020-10-23] MEDS: POLYETHYLENE GLYCOL 17 GM PACKET PO SCH ×2 (08:04→19:35)
[2020-10-23] MEDS: SENNA/DOCUSATE TABLET PO SCH (08:05)
[2020-10-23] MEDS: LUBIPROSTONE 24 MCG CAPSULE PO SCH ×2 (08:09→19:35)
[2020-10-23] MEDS: CHOLECALCIFEROL 5,000u TAB PO SCH (08:09)
[2020-10-23] MEDS: FUROSEMIDE 40 MG/4 ML IV SCH (08:10)
[2020-10-23] MEDS: SODIUM CHLORIDE FLUSH 10ML SYR IVF SCH ×2 (08:10→19:33)
[2020-10-23] MEDS: ONDANSETRON 2MG/ML, 2ML IVPush PRN ×2 (09:16→21:07)
[2020-10-23 14:00] VITALS: BP 109/70
[2020-10-23] MEDS ORDERED: WARFARIN 2 MG TABLET PO-COUM ONE (18:00)
[2020-10-23 18:57] VITALS: BP 95/57
[2020-10-23] MEDS: ATORVASTATIN 40 MG TABLET PO SCH (19:33)
[2020-10-23] MEDS: TRAZODONE 50MG TABLET PO SCH (19:35)
[2020-10-23] MEDS: MELATONIN 5 MG TABLET PO PRN (20:26)
[2020-10-24 01:06] VITALS: BP 109/70
[2020-10-24] MEDS: OXYcodone IR 5MG TABLET PO PRN ×4 (01:28→16:40)
[2020-10-24 05:20] LABS: INTERNATIONAL NORMALIZED RATIO 2.67 (0.93-1.1)
[2020-10-24] MEDS: ASPIRIN 81 MG TABLET EC PO SCH (06:29)
[2020-10-24] MEDS: LEVOTHYROXINE 75 MCG TABLET PO SCH (06:29)
[2020-10-24 07:05] VITALS: BP 105/68
[2020-10-24] MEDS: FUROSEMIDE 40 MG/4 ML IV SCH (08:59)
[2020-10-24] MEDS: CHOLECALCIFEROL 5,000u TAB PO SCH (08:59)
[2020-10-24] MEDS: POLYETHYLENE GLYCOL 17 GM PACKET PO SCH ×2 (09:00→20:05)
[2020-10-24] MEDS: SENNA/DOCUSATE TABLET PO SCH (09:00)
[2020-10-24] MEDS: LUBIPROSTONE 24 MCG CAPSULE PO SCH ×2 (09:00→20:04)
[2020-10-24] MEDS: SODIUM CHLORIDE FLUSH 10ML SYR IVF SCH ×2 (09:00→20:04)
[2020-10-24] MEDS: LACTULOSE 10 GM/15 ML UDC PO SCH ×2 (09:05→20:05)
[2020-10-24] MEDS: SCOPOLAMINE PATCH, 1.5MG PATCH.TD72 TD SCH (09:06)
[2020-10-24] MEDS: ONDANSETRON 2MG/ML, 2ML IVPush PRN ×2 (09:10→20:11)
[2020-10-24 13:42] VITALS: BP 122/79
[2020-10-24] MEDS ORDERED: WARFARIN 2.5 MG TABLET PO-COUM ONE (18:00)
[2020-10-24 19:09] VITALS: BP 105/57
[2020-10-24] MEDS: TRAZODONE 50MG TABLET PO SCH (20:04)
[2020-10-24] MEDS: ATORVASTATIN 40 MG TABLET PO SCH (20:04)
[2020-10-25] MEDS: OXYcodone IR 5MG TABLET PO PRN ×4 (00:33→19:24)
[2020-10-25 00:39] VITALS: BP 107/63
[2020-10-25] MEDS: ONDANSETRON 2MG/ML, 2ML IVPush PRN ×2 (02:12→21:26)
[2020-10-25] MEDS: ASPIRIN 81 MG TABLET EC PO SCH (05:01)
[2020-10-25] MEDS: LEVOTHYROXINE 75 MCG TABLET PO SCH (05:01)
[2020-10-25 05:19] LABS: INTERNATIONAL NORMALIZED RATIO 2.86 (0.93-1.1)
[2020-10-25 08:06] VITALS: BP 110/68
[2020-10-25] MEDS: FUROSEMIDE 40 MG/4 ML IV SCH (08:26)
[2020-10-25] MEDS: LACTULOSE 10 GM/15 ML UDC PO SCH ×2 (08:26→20:21)
[2020-10-25] MEDS: CHOLECALCIFEROL 5,000u TAB PO SCH (08:26)
[2020-10-25] MEDS: POLYETHYLENE GLYCOL 17 GM PACKET PO SCH ×2 (08:27→20:21)
[2020-10-25] MEDS: LUBIPROSTONE 24 MCG CAPSULE PO SCH ×2 (08:27→20:20)
[2020-10-25] MEDS: SODIUM CHLORIDE FLUSH 10ML SYR IVF SCH ×2 (08:27→20:21)
[2020-10-25] MEDS: SENNA/DOCUSATE TABLET PO SCH (08:27)
[2020-10-25] MEDS: ONDANSETRON 4 MG TABLET PO PRN ×2 (08:43→17:25)
[2020-10-25 12:16] VITALS: BP 116/69
[2020-10-25] MEDS ORDERED: WARFARIN 3 MG TABLET PO-COUM ONE (18:00)
[2020-10-25 19:05] VITALS: BP 106/68
[2020-10-25] MEDS: ATORVASTATIN 40 MG TABLET PO SCH (20:19)
[2020-10-25] MEDS: TRAZODONE 50MG TABLET PO SCH (20:19)
[2020-10-25] MEDS: SIMETHICONE DROPS 40 MG/0.6 ML BOTTLE PO PRN (20:27)
[2020-10-26 00:23] VITALS: BP 98/60
[2020-10-26] MEDS: OXYcodone IR 5MG TABLET PO PRN ×5 (01:39→21:02)
[2020-10-26 04:03] LABS: INTERNATIONAL NORMALIZED RATIO 2.96 (0.93-1.1)
[2020-10-26] MEDS: ASPIRIN 81 MG TABLET EC PO SCH (05:34)
[2020-10-26] MEDS: LEVOTHYROXINE 75 MCG TABLET PO SCH (05:34)
[2020-10-26 06:45] VITALS: BP 136/58
[2020-10-26] MEDS: FUROSEMIDE 40 MG/4 ML IV SCH (08:32)
[2020-10-26] MEDS: SODIUM CHLORIDE FLUSH 10ML SYR IVF SCH ×2 (08:32→20:57)
[2020-10-26] MEDS: CHOLECALCIFEROL 5,000u TAB PO SCH (08:33)
[2020-10-26] MEDS: LACTULOSE 10 GM/15 ML UDC PO SCH ×2 (08:56→20:58)
[2020-10-26] MEDS: POLYETHYLENE GLYCOL 17 GM PACKET PO SCH ×2 (08:56→20:58)
[2020-10-26] MEDS: SENNA/DOCUSATE TABLET PO SCH (08:56)
[2020-10-26] MEDS: LUBIPROSTONE 24 MCG CAPSULE PO SCH ×2 (09:00→20:54)
[2020-10-26] MEDS: ONDANSETRON 4 MG TABLET PO PRN (09:06)
[2020-10-26 12:43] VITALS: BP 101/51
[2020-10-26] MEDS: MUPIROCIN OINT 2%, 22GM TP SCH ×3 (14:56→20:57)
[2020-10-26] MEDS: ONDANSETRON 2MG/ML, 2ML IVPush PRN ×2 (15:11→19:32)
[2020-10-26] MEDS: SIMETHICONE DROPS 40 MG/0.6 ML BOTTLE PO PRN (15:17)
[2020-10-26] MEDS ORDERED: WARFARIN 2.5 MG TABLET PO-COUM ONE (18:00)
[2020-10-26 19:54] VITALS: BP 96/60
[2020-10-26] MEDS: ATORVASTATIN 40 MG TABLET PO SCH (20:54)
[2020-10-26] MEDS: TRAZODONE 50MG TABLET PO SCH (20:55)
[2020-10-27] MEDS: OXYcodone IR 5MG TABLET PO PRN ×3 (01:41→18:24)
[2020-10-27 01:52] VITALS: BP 90/57
[2020-10-27] MEDS: ONDANSETRON 2MG/ML, 2ML IVPush PRN ×4 (03:21→22:03)
[2020-10-27] MEDS: ASPIRIN 81 MG TABLET EC PO SCH (05:44)
[2020-10-27] MEDS: LEVOTHYROXINE 75 MCG TABLET PO SCH (05:45)
[2020-10-27 06:12] LABS: INTERNATIONAL NORMALIZED RATIO 3.02 (0.93-1.1); PROTHROMBIN TIME 31.6 Seconds (9.6-11.5)
[2020-10-27 06:59] VITALS: BP 111/61
[2020-10-27] MEDS: LACTULOSE 10 GM/15 ML UDC PO SCH ×2 (09:00→20:36)
[2020-10-27] MEDS: POLYETHYLENE GLYCOL 17 GM PACKET PO SCH ×2 (09:00→20:38)
[2020-10-27] MEDS: SENNA/DOCUSATE TABLET PO SCH (09:00)
[2020-10-27] MEDS: FUROSEMIDE 40 MG/4 ML IV SCH (10:19)
[2020-10-27] MEDS: MUPIROCIN OINT 2%, 22GM TP SCH ×3 (10:20→20:36)
[2020-10-27] MEDS: SODIUM CHLORIDE FLUSH 10ML SYR IVF SCH ×2 (10:20→20:36)
[2020-10-27] MEDS: CHOLECALCIFEROL 5,000u TAB PO SCH (10:20)
[2020-10-27] MEDS: LUBIPROSTONE 24 MCG CAPSULE PO SCH ×2 (10:55→20:33)
[2020-10-27] MEDS: SCOPOLAMINE PATCH, 1.5MG PATCH.TD72 TD SCH (10:58)
[2020-10-27 12:00] VITALS: BP 108/62
[2020-10-27] MEDS ORDERED: WARFARIN 2.5 MG TABLET PO-COUM ONE (18:00)
[2020-10-27 19:48] VITALS: BP 124/74
[2020-10-27 20:01] VITALS: BP 115/73
[2020-10-27] MEDS: ATORVASTATIN 40 MG TABLET PO SCH (20:33)
[2020-10-27] MEDS: TRAZODONE 50MG TABLET PO SCH (20:35)
[2020-10-27] MEDS: MELATONIN 5 MG TABLET PO PRN (22:04)
[2020-10-28 02:46] VITALS: BP 100/56
[2020-10-28] MEDS: OXYcodone IR 5MG TABLET PO PRN ×4 (03:41→21:55)
[2020-10-28] MEDS: ASPIRIN 81 MG TABLET EC PO SCH (05:38)
[2020-10-28] MEDS: LEVOTHYROXINE 75 MCG TABLET PO SCH (05:39)
[2020-10-28 05:45] LABS: INTERNATIONAL NORMALIZED RATIO 2.72 (0.93-1.1); PROTHROMBIN TIME 28.5 Seconds (9.6-11.5)
[2020-10-28 07:08] VITALS: BP 106/69
[2020-10-28] MEDS: CHOLECALCIFEROL 5,000u TAB PO SCH (08:38)
[2020-10-28] MEDS: MUPIROCIN OINT 2%, 22GM TP SCH ×3 (08:39→21:00)
[2020-10-28] MEDS: FUROSEMIDE 40 MG/4 ML IV SCH (08:39)
[2020-10-28] MEDS: POLYETHYLENE GLYCOL 17 GM PACKET PO SCH ×2 (08:41→21:00)
[2020-10-28] MEDS: LACTULOSE 10 GM/15 ML UDC PO SCH ×2 (08:42→21:00)
[2020-10-28] MEDS: SENNA/DOCUSATE TABLET PO SCH (08:43)
[2020-10-28] MEDS: SODIUM CHLORIDE FLUSH 10ML SYR IVF SCH ×2 (08:43→21:18)
[2020-10-28] MEDS: LUBIPROSTONE 24 MCG CAPSULE PO SCH ×2 (08:44→21:18)
[2020-10-28] MEDS: ONDANSETRON 2MG/ML, 2ML IVPush PRN ×4 (09:00→21:55)
[2020-10-28 13:18] VITALS: BP 101/62
[2020-10-28] MEDS ORDERED: WARFARIN 2 MG TABLET PO-COUM ONE (17:45)
[2020-10-28] MEDS ORDERED: WARFARIN 1 MG TABLET PO-COUM ONE (17:45)
[2020-10-28] MEDS ORDERED: WARFARIN 3 MG TABLET PO-COUM ONE (18:00)
[2020-10-28 18:58] VITALS: BP 119/65
[2020-10-28] MEDS: ATORVASTATIN 40 MG TABLET PO SCH (21:19)
[2020-10-28] MEDS: TRAZODONE 50MG TABLET PO SCH (21:19)
[2020-10-28] MEDS: MELATONIN 5 MG TABLET PO PRN (21:20)
[2020-10-29 02:51] VITALS: BP 100/57
[2020-10-29] MEDS: OXYcodone IR 5MG TABLET PO PRN ×3 (04:19→21:08)
[2020-10-29] MEDS: ASPIRIN 81 MG TABLET EC PO SCH (05:33)
[2020-10-29] MEDS: LEVOTHYROXINE 75 MCG TABLET PO SCH (05:33)
[2020-10-29 05:45] LABS: INTERNATIONAL NORMALIZED RATIO 2.47 (0.93-1.1)
[2020-10-29 07:42] VITALS: BP 103/65
[2020-10-29] MEDS: POLYETHYLENE GLYCOL 17 GM PACKET PO SCH ×2 (07:52→21:00)
[2020-10-29] MEDS: LACTULOSE 10 GM/15 ML UDC PO SCH ×2 (07:52→21:00)
[2020-10-29] MEDS: LUBIPROSTONE 24 MCG CAPSULE PO SCH ×2 (07:52→21:08)
[2020-10-29] MEDS: SENNA/DOCUSATE TABLET PO SCH (07:52)
[2020-10-29] MEDS: MUPIROCIN OINT 2%, 22GM TP SCH ×3 (08:51→21:00)
[2020-10-29] MEDS: ONDANSETRON 2MG/ML, 2ML IVPush PRN ×3 (08:51→21:08)
[2020-10-29] MEDS: FUROSEMIDE 40 MG/4 ML IV SCH ×2 (08:51→16:09)
[2020-10-29] MEDS: SODIUM CHLORIDE FLUSH 10ML SYR IVF SCH ×2 (08:52→21:07)
[2020-10-29] MEDS: CHOLECALCIFEROL 5,000u TAB PO SCH (08:53)
[2020-10-29 13:51] VITALS: BP 102/67
[2020-10-29] MEDS ORDERED: WARFARIN 1 MG TABLET PO-COUM ONE (16:06)
[2020-10-29] MEDS ORDERED: WARFARIN 2 MG TABLET PO-COUM ONE (16:07)
[2020-10-29] MEDS ORDERED: WARFARIN 3 MG TABLET PO-COUM ONE (18:00)
[2020-10-29 19:07] VITALS: BP 103/65
[2020-10-29] MEDS: MELATONIN 5 MG TABLET PO PRN (21:07)
[2020-10-29] MEDS: ATORVASTATIN 40 MG TABLET PO SCH (21:07)
[2020-10-29] MEDS: TRAZODONE 50MG TABLET PO SCH (21:08)
[2020-10-30 00:24] VITALS: BP 88/43
[2020-10-30 00:35] VITALS: BP 101/55
[2020-10-30] MEDS: OXYcodone IR 5MG TABLET PO PRN ×4 (02:37→19:35)
[2020-10-30] MEDS: LEVOTHYROXINE 75 MCG TABLET PO SCH (05:07)
[2020-10-30] MEDS: ASPIRIN 81 MG TABLET EC PO SCH (05:07)
[2020-10-30] MEDS: ONDANSETRON 2MG/ML, 2ML IVPush PRN ×3 (05:11→19:35)
[2020-10-30 05:21] LABS: BASOPHILS % (AUTO) 2 % (0-1); EOSINOPHILS % (AUTO) 3 % (1-7); LYMPHOCYTES % (AUTO) 18 % (22-44); MEAN CORPUSCULAR HEMOGLOBIN 29.2 pg (27.5-34.5); MEAN CORPUSCULAR HGB CONC 32.7 g/dL (33.2-36.2); MEAN PLATELET VOLUME 8.4 fL (7.4-10.4); MONOCYTES % (AUTO) 20 % (2-9); NEUTROPHILS % (AUTO) 57 % (42-75); PLATELET COUNT 252 x10^3/uL (130-400); RED BLOOD COUNT 3.34 x10^6/uL (4.38-5.82); RED CELL DISTRIBUTION WIDTH 21.2 % (9.4-14.8)
[2020-10-30 05:31] LABS: INTERNATIONAL NORMALIZED RATIO 2.74 (0.93-1.1); PROTHROMBIN TIME 28.7 Seconds (9.6-11.5)
[2020-10-30 05:34] LABS: ANION GAP 5 mmol/L (5-15); CALCIUM 8.2 mg/dL (8.5-10.1); CHLORIDE 95 mmol/L (98-107); CREATININE 1.27 mg/dL (0.7-1.3)
[2020-10-30 06:13] LABS: ANISOCYTOSIS 2+; MD MORPH REVIEW ONLY; MICROCYTOSIS 1+; OVALOCYTES 1+; POLYCHROMASIA 1+
[2020-10-30 06:14] LABS: <PLATELET ESTIMATE> ADEQUATE; <PLT MORPHOLOGY> NORMAL PLT MORPH; HYPOCHROMIA 1+; TARGET CELLS 1+
[2020-10-30 07:32] VITALS: BP 126/88
[2020-10-30] MEDS: FUROSEMIDE 40 MG/4 ML IV SCH (07:53)
[2020-10-30] MEDS: LUBIPROSTONE 24 MCG CAPSULE PO SCH ×2 (07:53→21:11)
[2020-10-30] MEDS: SODIUM CHLORIDE FLUSH 10ML SYR IVF SCH ×2 (07:54→21:12)
[2020-10-30] MEDS: CHOLECALCIFEROL 5,000u TAB PO SCH (07:55)
[2020-10-30] MEDS: SENNA/DOCUSATE TABLET PO SCH (07:55)
[2020-10-30] MEDS: POLYETHYLENE GLYCOL 17 GM PACKET PO SCH ×2 (07:55→21:11)
[2020-10-30] MEDS: LACTULOSE 10 GM/15 ML UDC PO SCH ×2 (07:55→21:11)
[2020-10-30] MEDS: MUPIROCIN OINT 2%, 22GM TP SCH ×3 (07:56→21:14)
[2020-10-30] MEDS: SCOPOLAMINE PATCH, 1.5MG PATCH.TD72 TD SCH (11:00)
[2020-10-30 13:11] VITALS: BP 83/52
[2020-10-30 13:18] VITALS: BP 95/54
[2020-10-30] MEDS: FUROSEMIDE 40 MG TABLET PO SCH (17:04)
[2020-10-30] MEDS ORDERED: WARFARIN 2.5 MG TABLET PO-COUM ONE (18:00)
[2020-10-30 18:50] VITALS: BP 94/58
[2020-10-30] MEDS ORDERED: WARFARIN 5 MG TABLET PO-COUM ONE (21:07)
[2020-10-30] MEDS: ATORVASTATIN 40 MG TABLET PO SCH (21:12)
[2020-10-30] MEDS: TRAZODONE 50MG TABLET PO SCH (21:12)
[2020-10-31 00:54] VITALS: BP 101/69
[2020-10-31] MEDS: OXYcodone IR 5MG TABLET PO PRN ×4 (04:04→21:41)
[2020-10-31] MEDS: ONDANSETRON 2MG/ML, 2ML IVPush PRN ×4 (04:04→21:43)
[2020-10-31 04:57] LABS: BASOPHILS % (AUTO) 3 % (0-1); EOSINOPHILS % (AUTO) 2 % (1-7); LYMPHOCYTES % (AUTO) 21 % (22-44); MEAN CORPUSCULAR HEMOGLOBIN 28.6 pg (27.5-34.5); MEAN CORPUSCULAR HGB CONC 32.2 g/dL (33.2-36.2); MEAN PLATELET VOLUME 8.5 fL (7.4-10.4); MONOCYTES % (AUTO) 21 % (2-9); NEUTROPHILS % (AUTO) 53 % (42-75); PLATELET COUNT 224 x10^3/uL (130-400); RED BLOOD COUNT 3.28 x10^6/uL (4.38-5.82); RED CELL DISTRIBUTION WIDTH 21.5 % (9.4-14.8)
[2020-10-31 05:03] LABS: INTERNATIONAL NORMALIZED RATIO 2.6 (0.93-1.1); PROTHROMBIN TIME 27.3 Seconds (9.6-11.5)
[2020-10-31 05:04] LABS: ANION GAP 5 mmol/L (5-15); CALCIUM 8.3 mg/dL (8.5-10.1); CHLORIDE 95 mmol/L (98-107); CREATININE 1.51 mg/dL (0.7-1.3)
[2020-10-31] MEDS: LEVOTHYROXINE 75 MCG TABLET PO SCH (05:18)
[2020-10-31] MEDS: ASPIRIN 81 MG TABLET EC PO SCH (05:18)
[2020-10-31 05:51] LABS: MD SCAN
[2020-10-31 06:42] VITALS: BP 98/63
[2020-10-31] MEDS: FUROSEMIDE 40 MG TABLET PO SCH ×2 (08:37→17:17)
[2020-10-31] MEDS: LACTULOSE 10 GM/15 ML UDC PO SCH ×2 (08:37→21:00)
[2020-10-31] MEDS: SODIUM CHLORIDE FLUSH 10ML SYR IVF SCH ×2 (08:37→21:43)
[2020-10-31] MEDS: LUBIPROSTONE 24 MCG CAPSULE PO SCH ×3 (08:37→21:00)
[2020-10-31] MEDS: POLYETHYLENE GLYCOL 17 GM PACKET PO SCH ×2 (08:37→21:00)
[2020-10-31] MEDS: MUPIROCIN OINT 2%, 22GM TP SCH ×3 (08:38→21:44)
[2020-10-31] MEDS: SENNA/DOCUSATE TABLET PO SCH (08:38)
[2020-10-31] MEDS: CHOLECALCIFEROL 5,000u TAB PO SCH (08:38)
[2020-10-31 12:31] VITALS: BP 88/55
[2020-10-31] MEDS ORDERED: WARFARIN 2.5 MG TABLET PO-COUM ONE (18:00)
[2020-10-31 19:16] VITALS: BP 101/56
[2020-10-31] MEDS: TRAZODONE 50MG TABLET PO SCH (21:41)
[2020-10-31] MEDS: ATORVASTATIN 40 MG TABLET PO SCH (21:41)
[2020-10-31] MEDS: MELATONIN 5 MG TABLET PO PRN (21:42)
[2020-10-31] MEDS: SIMETHICONE DROPS 40 MG/0.6 ML BOTTLE PO PRN (22:09)
[2020-11-01 01:24] VITALS: BP 99/62
[2020-11-01] MEDS: OXYcodone IR 5MG TABLET PO PRN ×5 (01:40→23:09)
[2020-11-01 05:10] LABS: INTERNATIONAL NORMALIZED RATIO 2.53 (0.93-1.1); PROTHROMBIN TIME 26.6 Seconds (9.6-11.5)
[2020-11-01 06:21] VITALS: BP 89/52
[2020-11-01] MEDS: ASPIRIN 81 MG TABLET EC PO SCH (06:27)
[2020-11-01] MEDS: LEVOTHYROXINE 75 MCG TABLET PO SCH (06:27)
[2020-11-01] MEDS: ONDANSETRON 2MG/ML, 2ML IVPush PRN ×3 (06:28→18:14)
[2020-11-01 06:47] VITALS: BP 113/61
[2020-11-01] MEDS: POLYETHYLENE GLYCOL 17 GM PACKET PO SCH ×2 (09:32→21:07)
[2020-11-01] MEDS: LACTULOSE 10 GM/15 ML UDC PO SCH ×2 (09:32→21:07)
[2020-11-01] MEDS: SENNA/DOCUSATE TABLET PO SCH (09:32)
[2020-11-01] MEDS: CHOLECALCIFEROL 5,000u TAB PO SCH (09:33)
[2020-11-01] MEDS: SODIUM CHLORIDE FLUSH 10ML SYR IVF SCH ×2 (09:33→21:07)
[2020-11-01] MEDS: FUROSEMIDE 40 MG TABLET PO SCH ×2 (09:33→16:31)
[2020-11-01] MEDS: LUBIPROSTONE 24 MCG CAPSULE PO SCH ×2 (09:34→21:07)
[2020-11-01] MEDS: MUPIROCIN OINT 2%, 22GM TP SCH ×3 (09:34→21:08)
[2020-11-01 13:02] VITALS: BP 103/68
[2020-11-01 19:35] VITALS: BP 105/56
[2020-11-01] MEDS: ATORVASTATIN 40 MG TABLET PO SCH (21:07)
[2020-11-01] MEDS: TRAZODONE 50MG TABLET PO SCH (21:07)
[2020-11-01] MEDS: MELATONIN 5 MG TABLET PO PRN (23:09)
[2020-11-01] MEDS: SIMETHICONE DROPS 40 MG/0.6 ML BOTTLE PO PRN (23:14)
[2020-11-02] MEDS: OXYcodone IR 5MG TABLET PO PRN ×4 (03:32→21:48)
[2020-11-02 03:34] VITALS: BP 104/57
[2020-11-02] MEDS: ONDANSETRON 2MG/ML, 2ML IVPush PRN ×3 (03:42→21:48)
[2020-11-02 05:10] LABS: INTERNATIONAL NORMALIZED RATIO 2.02 (0.93-1.1); PROTHROMBIN TIME 21.3 Seconds (9.6-11.5)
[2020-11-02] MEDS: ASPIRIN 81 MG TABLET EC PO SCH (05:49)
[2020-11-02] MEDS: LEVOTHYROXINE 75 MCG TABLET PO SCH (05:50)
[2020-11-02 06:35] VITALS: BP 95/58
[2020-11-02] MEDS: POLYETHYLENE GLYCOL 17 GM PACKET PO SCH ×2 (09:00→20:40)
[2020-11-02] MEDS: LACTULOSE 10 GM/15 ML UDC PO SCH ×2 (09:00→20:40)
[2020-11-02] MEDS: LUBIPROSTONE 24 MCG CAPSULE PO SCH ×2 (09:00→20:40)
[2020-11-02] MEDS: SENNA/DOCUSATE TABLET PO SCH (09:00)
[2020-11-02] MEDS: CHOLECALCIFEROL 5,000u TAB PO SCH (09:55)
[2020-11-02] MEDS: SODIUM CHLORIDE FLUSH 10ML SYR IVF SCH ×2 (09:55→20:39)
[2020-11-02] MEDS: MUPIROCIN OINT 2%, 22GM TP SCH ×3 (09:55→20:42)
[2020-11-02] MEDS: FUROSEMIDE 40 MG TABLET PO SCH ×2 (09:55→17:44)
[2020-11-02] MEDS: SCOPOLAMINE PATCH, 1.5MG PATCH.TD72 TD SCH (11:00)
[2020-11-02 13:08] VITALS: BP 110/63
[2020-11-02] MEDS ORDERED: WARFARIN 3 MG TABLET PO-COUM ONE (18:00)
[2020-11-02 19:19] VITALS: BP 101/54
[2020-11-02] MEDS: ATORVASTATIN 40 MG TABLET PO SCH (20:41)
[2020-11-02] MEDS: TRAZODONE 50MG TABLET PO SCH (20:41)
[2020-11-02] MEDS: MELATONIN 5 MG TABLET PO PRN (21:57)
[2020-11-03 00:52] VITALS: BP 101/62
[2020-11-03 05:18] LABS: INTERNATIONAL NORMALIZED RATIO 1.78 (0.93-1.1); PROTHROMBIN TIME 18.8 Seconds (9.6-11.5)
[2020-11-03] MEDS: LEVOTHYROXINE 75 MCG TABLET PO SCH (06:04)
[2020-11-03] MEDS: ASPIRIN 81 MG TABLET EC PO SCH (06:04)
[2020-11-03 07:13] VITALS: BP 107/55
[2020-11-03] MEDS: CHOLECALCIFEROL 5,000u TAB PO SCH (07:33)
[2020-11-03] MEDS: LUBIPROSTONE 24 MCG CAPSULE PO SCH ×2 (07:33→21:40)
[2020-11-03] MEDS: FUROSEMIDE 40 MG TABLET PO SCH ×2 (07:33→16:55)
[2020-11-03] MEDS: LACTULOSE 10 GM/15 ML UDC PO SCH ×2 (07:39→21:40)
[2020-11-03] MEDS: SENNA/DOCUSATE TABLET PO SCH (07:40)
[2020-11-03] MEDS: POLYETHYLENE GLYCOL 17 GM PACKET PO SCH ×2 (07:40→21:41)
[2020-11-03] MEDS: SODIUM CHLORIDE FLUSH 10ML SYR IVF SCH ×2 (08:53→21:40)
[2020-11-03] MEDS: MUPIROCIN OINT 2%, 22GM TP SCH ×3 (08:54→21:41)
[2020-11-03] MEDS: OXYcodone IR 5MG TABLET PO PRN ×3 (08:59→22:31)
[2020-11-03] MEDS: ONDANSETRON 2MG/ML, 2ML IVPush PRN (11:10)
[2020-11-03 12:43] VITALS: BP 106/65
[2020-11-03] MEDS ORDERED: WARFARIN 3 MG TABLET PO-COUM ONE (18:00)
[2020-11-03 19:37] VITALS: BP 98/62
[2020-11-03] MEDS: ATORVASTATIN 40 MG TABLET PO SCH (21:41)
[2020-11-03] MEDS: TRAZODONE 50MG TABLET PO SCH (21:41)
[2020-11-03 21:47] VITALS: BP 105/64
[2020-11-04 01:28] VITALS: BP 103/59
[2020-11-04] MEDS: ONDANSETRON 2MG/ML, 2ML IVPush PRN ×3 (01:34→22:20)
[2020-11-04] MEDS: OXYcodone IR 5MG TABLET PO PRN ×4 (02:48→20:52)
[2020-11-04 02:49] VITALS: BP 99/62
[2020-11-04] MEDS: ASPIRIN 81 MG TABLET EC PO SCH (05:46)
[2020-11-04] MEDS: LEVOTHYROXINE 75 MCG TABLET PO SCH (05:46)
[2020-11-04 06:38] VITALS: BP 101/57
[2020-11-04 06:56] LABS: INTERNATIONAL NORMALIZED RATIO 1.78 (0.93-1.1); PROTHROMBIN TIME 18.8 Seconds (9.6-11.5)
[2020-11-04] MEDS: LACTULOSE 10 GM/15 ML UDC PO SCH ×2 (07:50→21:00)
[2020-11-04] MEDS: SENNA/DOCUSATE TABLET PO SCH (07:50)
[2020-11-04] MEDS: POLYETHYLENE GLYCOL 17 GM PACKET PO SCH ×2 (07:50→21:00)
[2020-11-04] MEDS: FUROSEMIDE 40 MG TABLET PO SCH ×3 (08:45→18:03)
[2020-11-04] MEDS: CHOLECALCIFEROL 5,000u TAB PO SCH (08:45)
[2020-11-04] MEDS: LUBIPROSTONE 24 MCG CAPSULE PO SCH ×3 (08:46→22:08)
[2020-11-04] MEDS: SODIUM CHLORIDE FLUSH 10ML SYR IVF SCH ×2 (08:46→22:11)
[2020-11-04] MEDS: MUPIROCIN OINT 2%, 22GM TP SCH ×3 (09:00→22:11)
[2020-11-04 13:23] VITALS: BP 94/59
[2020-11-04] MEDS: WARFARIN 1 MG TABLET PO-COUM ONE (18:00)
[2020-11-04 19:41] VITALS: BP 121/72
[2020-11-04] MEDS: ATORVASTATIN 40 MG TABLET PO SCH (22:08)
[2020-11-04] MEDS: TRAZODONE 50MG TABLET PO SCH (22:08)
[2020-11-05] MEDS: OXYcodone IR 5MG TABLET PO PRN ×5 (01:23→22:12)
[2020-11-05 04:56] VITALS: BP 111/66
[2020-11-05 06:04] LABS: INTERNATIONAL NORMALIZED RATIO 1.59 (0.93-1.1); PROTHROMBIN TIME 16.9 Seconds (9.6-11.5)
[2020-11-05 06:49] VITALS: BP 97/62
[2020-11-05] MEDS: LEVOTHYROXINE 75 MCG TABLET PO SCH ×2 (07:30→10:32)
[2020-11-05] MEDS: FUROSEMIDE 40 MG TABLET PO SCH ×2 (08:24→17:29)
[2020-11-05] MEDS: SODIUM CHLORIDE FLUSH 10ML SYR IVF SCH ×2 (09:00→20:52)
[2020-11-05] MEDS: LUBIPROSTONE 24 MCG CAPSULE PO SCH ×3 (09:00→21:00)
[2020-11-05] MEDS: LACTULOSE 10 GM/15 ML UDC PO SCH ×2 (09:00→21:00)
[2020-11-05] MEDS: SENNA/DOCUSATE TABLET PO SCH (09:00)
[2020-11-05] MEDS: POLYETHYLENE GLYCOL 17 GM PACKET PO SCH ×2 (09:00→21:00)
[2020-11-05] MEDS: ASPIRIN 81 MG TABLET EC PO SCH (10:29)
[2020-11-05] MEDS: CHOLECALCIFEROL 5,000u TAB PO SCH (10:32)
[2020-11-05] MEDS: MUPIROCIN OINT 2%, 22GM TP SCH ×3 (10:33→20:56)
[2020-11-05] MEDS: SCOPOLAMINE PATCH, 1.5MG PATCH.TD72 TD SCH (10:35)
[2020-11-05 12:42] VITALS: BP 104/62
[2020-11-05] MEDS: ONDANSETRON 2MG/ML, 2ML IVPush PRN ×3 (13:27→22:11)
[2020-11-05] MEDS ORDERED: WARFARIN 5 MG TABLET PO-COUM ONE (18:00)
[2020-11-05 18:59] VITALS: BP 108/62
[2020-11-05] MEDS: TRAZODONE 50MG TABLET PO SCH (20:53)
[2020-11-05] MEDS: ATORVASTATIN 40 MG TABLET PO SCH (21:00)
[2020-11-06 00:38] VITALS: BP 109/67
[2020-11-06] MEDS: OXYcodone IR 5MG TABLET PO PRN ×4 (02:29→19:33)
[2020-11-06 05:38] LABS: INTERNATIONAL NORMALIZED RATIO 1.57 (0.93-1.1); PROTHROMBIN TIME 16.7 Seconds (9.6-11.5)
[2020-11-06] MEDS: ASPIRIN 81 MG TABLET EC PO SCH (06:00)
[2020-11-06] MEDS: LEVOTHYROXINE 75 MCG TABLET PO SCH (06:28)
[2020-11-06 07:15] VITALS: BP 92/61
[2020-11-06] MEDS ORDERED: DEXTROSE 50%, 50ML SYRINGE IVPush ONE (08:00)
[2020-11-06] MEDS: CHOLECALCIFEROL 5,000u TAB PO SCH (08:19)
[2020-11-06] MEDS: MUPIROCIN OINT 2%, 22GM TP SCH ×3 (08:19→19:35)
[2020-11-06] MEDS: FUROSEMIDE 40 MG TABLET PO SCH ×2 (08:19→17:21)
[2020-11-06] MEDS: SODIUM CHLORIDE FLUSH 10ML SYR IVF SCH ×2 (08:19→19:36)
[2020-11-06] MEDS: LUBIPROSTONE 24 MCG CAPSULE PO SCH ×2 (08:25→19:36)
[2020-11-06] MEDS: LACTULOSE 10 GM/15 ML UDC PO SCH ×2 (08:25→19:36)
[2020-11-06] MEDS: POLYETHYLENE GLYCOL 17 GM PACKET PO SCH ×2 (08:25→19:35)
[2020-11-06] MEDS: SENNA/DOCUSATE TABLET PO SCH (08:25)
[2020-11-06] MEDS: ONDANSETRON 2MG/ML, 2ML IVPush PRN ×2 (08:33→15:42)
[2020-11-06 15:18] LABS: ANION GAP 7 mmol/L (5-15); CALCIUM 8.4 mg/dL (8.5-10.1); CHLORIDE 99 mmol/L (98-107); CREATININE 1.29 mg/dL (0.7-1.3)
[2020-11-06] MEDS: ONDANSETRON 4 MG TABLET PO PRN (15:36)
[2020-11-06 16:03] VITALS: BP 138/66
[2020-11-06 16:37] VITALS: BP 99/62
[2020-11-06] MEDS ORDERED: WARFARIN 5 MG TABLET PO-COUM ONE (18:00)
[2020-11-06 18:25] VITALS: BP 105/64
[2020-11-06] MEDS: TRAZODONE 50MG TABLET PO SCH (19:34)
[2020-11-06] MEDS: ATORVASTATIN 40 MG TABLET PO SCH (19:36)
[2020-11-07 00:11] VITALS: BP 99/58
[2020-11-07] MEDS: ONDANSETRON 2MG/ML, 2ML IVPush PRN ×4 (00:41→20:37)
[2020-11-07] MEDS: OXYcodone IR 5MG TABLET PO PRN ×5 (00:42→19:03)
[2020-11-07 06:00] LABS: BASOPHILS % (AUTO) 1 % (0-1); EOSINOPHILS % (AUTO) 2 % (1-7); LYMPHOCYTES % (AUTO) 15 % (22-44); MEAN CORPUSCULAR HEMOGLOBIN 28.6 pg (27.5-34.5); MEAN CORPUSCULAR HGB CONC 32.5 g/dL (33.2-36.2); MEAN PLATELET VOLUME 8.5 fL (7.4-10.4); MONOCYTES % (AUTO) 19 % (2-9); NEUTROPHILS % (AUTO) 64 % (42-75); PLATELET COUNT 189 x10^3/uL (130-400); RED BLOOD COUNT 3.22 x10^6/uL (4.38-5.82); RED CELL DISTRIBUTION WIDTH 21.4 % (9.4-14.8)
[2020-11-07 06:04] LABS: MD NO
[2020-11-07 06:09] LABS: INTERNATIONAL NORMALIZED RATIO 2.07 (0.93-1.1); PROTHROMBIN TIME 21.8 Seconds (9.6-11.5)
[2020-11-07] MEDS: ASPIRIN 81 MG TABLET EC PO SCH (06:09)
[2020-11-07] MEDS: LEVOTHYROXINE 75 MCG TABLET PO SCH (06:09)
[2020-11-07 06:10] LABS: ANION GAP 6 mmol/L (5-15); CALCIUM 8.3 mg/dL (8.5-10.1); CHLORIDE 99 mmol/L (98-107); CREATININE 1.41 mg/dL (0.7-1.3)
[2020-11-07] MEDS: FUROSEMIDE 40 MG TABLET PO SCH ×2 (07:17→16:36)
[2020-11-07] MEDS: SODIUM CHLORIDE FLUSH 10ML SYR IVF SCH ×2 (07:17→20:41)
[2020-11-07] MEDS: SODIUM CHLORIDE 0.9% 1,000 ML IV SCH ×2 (07:17→20:37)
[2020-11-07] MEDS: LUBIPROSTONE 24 MCG CAPSULE PO SCH ×2 (08:29→20:46)
[2020-11-07] MEDS: SENNA/DOCUSATE TABLET PO SCH (08:29)
[2020-11-07] MEDS: POLYETHYLENE GLYCOL 17 GM PACKET PO SCH ×2 (08:29→20:46)
[2020-11-07] MEDS: LACTULOSE 10 GM/15 ML UDC PO SCH ×2 (08:29→20:46)
[2020-11-07] MEDS: CHOLECALCIFEROL 5,000u TAB PO SCH (08:30)
[2020-11-07] MEDS: MUPIROCIN OINT 2%, 22GM TP SCH ×3 (08:30→20:42)
[2020-11-07] MEDS ORDERED: OMNIPAQUE 350 MG/ML, 150 ML BOTTLE ONE (11:59)
[2020-11-07 13:05] VITALS: BP 101/57
[2020-11-07 14:55] VITALS: BP 108/63
[2020-11-07] MEDS ORDERED: WARFARIN 2 MG TABLET PO-COUM ONE (18:00)
[2020-11-07 19:20] VITALS: BP 98/56
[2020-11-07] MEDS: TRAZODONE 50MG TABLET PO SCH (20:37)
[2020-11-07] MEDS: ATORVASTATIN 40 MG TABLET PO SCH (20:46)
[2020-11-08] VITALS (11 sets, daily range): BP systolic 84–124; BP diastolic 49–73
[2020-11-08] MEDS: OXYcodone IR 5MG TABLET PO PRN ×4 (00:50→20:24)
[2020-11-08] MEDS: ONDANSETRON 2MG/ML, 2ML IVPush PRN ×3 (01:02→22:03)
[2020-11-08 05:39] LABS: INTERNATIONAL NORMALIZED RATIO 2.51 (0.93-1.1); PROTHROMBIN TIME 26.4 Seconds (9.6-11.5)
[2020-11-08 05:42] LABS: BASOPHILS % (AUTO) 1 % (0-1); EOSINOPHILS % (AUTO) 2 % (1-7); LYMPHOCYTES % (AUTO) 24 % (22-44); MEAN CORPUSCULAR HEMOGLOBIN 28.7 pg (27.5-34.5); MEAN CORPUSCULAR HGB CONC 32.4 g/dL (33.2-36.2); MEAN PLATELET VOLUME 8.6 fL (7.4-10.4); MONOCYTES % (AUTO) 21 % (2-9); NEUTROPHILS % (AUTO) 52 % (42-75); PLATELET COUNT 197 x10^3/uL (130-400); RED BLOOD COUNT 3.19 x10^6/uL (4.38-5.82); RED CELL DISTRIBUTION WIDTH 21.1 % (9.4-14.8)
[2020-11-08 05:43] LABS: CHLORIDE 99 mmol/L (98-107)
[2020-11-08 05:55] LABS: ANION GAP 5 mmol/L (5-15); CALCIUM 8.4 mg/dL (8.5-10.1); CREATININE 1.23 mg/dL (0.7-1.3)
[2020-11-08] MEDS: ASPIRIN 81 MG TABLET EC PO SCH (06:17)
[2020-11-08 06:33] LABS: MD SCAN
[2020-11-08] MEDS: LEVOTHYROXINE 75 MCG TABLET PO SCH (08:42)
[2020-11-08] MEDS: FUROSEMIDE 40 MG TABLET PO SCH ×2 (08:43→17:49)
[2020-11-08] MEDS: LACTULOSE 10 GM/15 ML UDC PO SCH ×2 (09:00→21:00)
[2020-11-08] MEDS: POLYETHYLENE GLYCOL 17 GM PACKET PO SCH ×2 (09:00→21:00)
[2020-11-08] MEDS: SENNA/DOCUSATE TABLET PO SCH (09:00)
[2020-11-08] MEDS: LUBIPROSTONE 24 MCG CAPSULE PO SCH ×2 (09:00→20:23)
[2020-11-08] MEDS: SODIUM CHLORIDE FLUSH 10ML SYR IVF SCH ×2 (10:25→20:32)
[2020-11-08] MEDS: CHOLECALCIFEROL 5,000u TAB PO SCH (10:25)
[2020-11-08] MEDS: MUPIROCIN OINT 2%, 22GM TP SCH ×3 (10:26→20:29)
[2020-11-08] MEDS: SCOPOLAMINE PATCH, 1.5MG PATCH.TD72 TD SCH (11:00)
[2020-11-08] MEDS ORDERED: ALBUTEROL/IPRATROPIUM 2.5MG/0.5MG, 3 ML NEB ONE (12:00)
[2020-11-08] MEDS: SIMETHICONE DROPS 40 MG/0.6 ML BOTTLE PO SCH ×2 (13:00→17:50)
[2020-11-08] MEDS: FAMOTIDINE 20 MG TABLET PO SCH ×2 (13:11→20:23)
[2020-11-08] MEDS ORDERED: WARFARIN 3 MG TABLET PO-COUM ONE (18:00)
[2020-11-08] MEDS: ATORVASTATIN 40 MG TABLET PO SCH (20:23)
[2020-11-08] MEDS: TRAZODONE 50MG TABLET PO SCH (20:23)
[2020-11-09 00:26] VITALS: BP 107/68
[2020-11-09] MEDS: OXYcodone IR 5MG TABLET PO PRN ×6 (02:05→23:47)
[2020-11-09 05:35] LABS: BASOPHILS % (AUTO) 0 % (0-1); EOSINOPHILS % (AUTO) 2 % (1-7); LYMPHOCYTES % (AUTO) 22 % (22-44); MEAN CORPUSCULAR HEMOGLOBIN 28.8 pg (27.5-34.5); MEAN CORPUSCULAR HGB CONC 32.4 g/dL (33.2-36.2); MEAN PLATELET VOLUME 8.9 fL (7.4-10.4); MONOCYTES % (AUTO) 20 % (2-9); NEUTROPHILS % (AUTO) 56 % (42-75); PLATELET COUNT 217 x10^3/uL (130-400); RED BLOOD COUNT 3.41 x10^6/uL (4.38-5.82); RED CELL DISTRIBUTION WIDTH 21.7 % (9.4-14.8)
[2020-11-09 05:44] LABS: MD NO
[2020-11-09 05:50] LABS: CHLORIDE 98 mmol/L (98-107)
[2020-11-09 05:55] LABS: INTERNATIONAL NORMALIZED RATIO 2.84 (0.93-1.1); PROTHROMBIN TIME 29.8 Seconds (9.6-11.5)
[2020-11-09 05:58] LABS: ALANINE AMINOTRANSFERASE 8 U/L (12-78); ALBUMIN 2.4 g/dL (3.4-5.0); ALKALINE PHOSPHATASE 78 U/L (45-117); ANION GAP 5 mmol/L (5-15); BILIRUBIN,TOTAL 1.3 mg/dL (0.2-1.0); CALCIUM 8.3 mg/dL (8.5-10.1); CREATININE 1.31 mg/dL (0.7-1.3); TOTAL PROTEIN 5.9 g/dL (6.4-8.2)
[2020-11-09] MEDS: LEVOTHYROXINE 75 MCG TABLET PO SCH (06:11)
[2020-11-09] MEDS: ASPIRIN 81 MG TABLET EC PO SCH (06:11)
[2020-11-09] MEDS: ONDANSETRON 2MG/ML, 2ML IVPush PRN ×2 (06:16→14:52)
[2020-11-09 06:55] VITALS: BP 95/61
[2020-11-09] MEDS: SIMETHICONE DROPS 40 MG/0.6 ML BOTTLE PO SCH ×3 (08:00→18:00)
[2020-11-09] MEDS: POLYETHYLENE GLYCOL 17 GM PACKET PO SCH ×2 (09:00→20:33)
[2020-11-09] MEDS: SENNA/DOCUSATE TABLET PO SCH (09:00)
[2020-11-09] MEDS: LACTULOSE 10 GM/15 ML UDC PO SCH ×2 (09:00→20:32)
[2020-11-09] MEDS: LUBIPROSTONE 24 MCG CAPSULE PO SCH ×2 (09:00→21:11)
[2020-11-09] MEDS: CHOLECALCIFEROL 5,000u TAB PO SCH (10:21)
[2020-11-09] MEDS: FAMOTIDINE 20 MG TABLET PO SCH ×2 (10:21→21:11)
[2020-11-09] MEDS: FUROSEMIDE 40 MG TABLET PO SCH ×2 (10:21→18:27)
[2020-11-09] MEDS: SODIUM CHLORIDE FLUSH 10ML SYR IVF SCH ×2 (10:23→21:11)
[2020-11-09] MEDS: MUPIROCIN OINT 2%, 22GM TP SCH ×3 (10:24→21:00)
[2020-11-09 12:18] VITALS: BP 96/55
[2020-11-09] MEDS ORDERED: WARFARIN 2.5 MG TABLET PO-COUM ONE (18:00)
[2020-11-09 18:23] VITALS: BP 95/59
[2020-11-09] MEDS: TRAZODONE 50MG TABLET PO SCH (21:11)
[2020-11-09] MEDS: ATORVASTATIN 40 MG TABLET PO SCH (21:11)
[2020-11-09 23:45] VITALS: BP 101/70
[2020-11-10] VITALS (12 sets, daily range): BP systolic 77–112; BP diastolic 40–69
[2020-11-10] MEDS: ONDANSETRON 2MG/ML, 2ML IVPush PRN ×2 (04:10→20:45)
[2020-11-10] MEDS ORDERED: ALBUTEROL/IPRATROPIUM 2.5MG/0.5MG, 3 ML NPPB PRN (05:30)
[2020-11-10] MEDS ORDERED: SODIUM CHLORIDE 0.9%, 250ML IVBOLUS ONE (06:00)
[2020-11-10] MEDS: LEVOTHYROXINE 75 MCG TABLET PO SCH (06:06)
[2020-11-10] MEDS: ASPIRIN 81 MG TABLET EC PO SCH (06:06)
[2020-11-10 06:31] LABS: BASOPHILS % (AUTO) 2 % (0-1); EOSINOPHILS % (AUTO) 2 % (1-7); LYMPHOCYTES % (AUTO) 20 % (22-44); MD NO; MEAN CORPUSCULAR HGB CONC 31.9 g/dL (33.2-36.2); MEAN PLATELET VOLUME 8.9 fL (7.4-10.4); MONOCYTES % (AUTO) 16 % (2-9); NEUTROPHILS % (AUTO) 60 % (42-75); PLATELET COUNT 214 x10^3/uL (130-400); RED BLOOD COUNT 3.23 x10^6/uL (4.38-5.82); RED CELL DISTRIBUTION WIDTH 21.2 % (9.4-14.8)
[2020-11-10 06:38] LABS: PROTHROMBIN TIME 31.4 Seconds (9.6-11.5)
[2020-11-10 06:43] LABS: ANION GAP 6 mmol/L (5-15); CALCIUM 8.1 mg/dL (8.5-10.1); CHLORIDE 99 mmol/L (98-107); CREATININE 1.44 mg/dL (0.7-1.3)
[2020-11-10 06:49] LABS: % IRON SATURATION 8 % (20-55); IRON LEVEL 29 mcg/dL (65-175); TOTAL IRON BINDING CAPACITY 343 mcg/dL (250-450)
[2020-11-10] MEDS: FUROSEMIDE 40 MG TABLET PO SCH ×3 (07:30→17:52)
[2020-11-10] MEDS: LACTULOSE 10 GM/15 ML UDC PO SCH ×2 (08:46→21:01)
[2020-11-10] MEDS: POLYETHYLENE GLYCOL 17 GM PACKET PO SCH ×2 (08:47→21:01)
[2020-11-10] MEDS: SENNA/DOCUSATE TABLET PO SCH (08:47)
[2020-11-10] MEDS: LUBIPROSTONE 24 MCG CAPSULE PO SCH ×2 (09:00→21:01)
[2020-11-10] MEDS: FAMOTIDINE 20 MG TABLET PO SCH ×2 (09:00→21:01)
[2020-11-10] MEDS ORDERED: SIMETHICONE 80 MG CHEW TAB PO SCH ×2 (09:00→13:00)
[2020-11-10] MEDS: MUPIROCIN OINT 2%, 22GM TP SCH ×3 (09:00→21:01)
[2020-11-10] MEDS: SODIUM CHLORIDE FLUSH 10ML SYR IVF SCH ×2 (10:31→20:45)
[2020-11-10] MEDS: IRON SUCROSE COMPLEX 100MG/5ML IV SCH (10:31)
[2020-11-10] MEDS: CHOLECALCIFEROL 5,000u TAB PO SCH (10:33)
[2020-11-10] MEDS: SIMETHICONE DROPS 40 MG/0.6 ML BOTTLE PO SCH ×2 (13:00→17:51)
[2020-11-10] MEDS: OXYcodone IR 5MG TABLET PO PRN ×2 (17:59→22:19)
[2020-11-10] MEDS ORDERED: WARFARIN 2.5 MG TABLET PO-COUM ONE (18:00)
[2020-11-10] MEDS: TRAZODONE 50MG TABLET PO SCH (20:44)
[2020-11-10] MEDS: ATORVASTATIN 40 MG TABLET PO SCH (21:01)
[2020-11-11] MEDS: OXYcodone IR 5MG TABLET PO PRN ×4 (02:27→21:41)
[2020-11-11] MEDS: ONDANSETRON 2MG/ML, 2ML IVPush PRN ×4 (02:31→20:03)
[2020-11-11] MEDS: ALBUTEROL-IPRATROPIUM MDI INH INH PRN (04:35)
[2020-11-11] MEDS: GUAIFENESIN 100 MG/5 ML, 5ML UDC PO PRN (04:55)
[2020-11-11 06:18] LABS: BASOPHILS % (AUTO) 1 % (0-1); EOSINOPHILS % (AUTO) 1 % (1-7); LYMPHOCYTES % (AUTO) 30 % (22-44); MEAN CORPUSCULAR HEMOGLOBIN 28.4 pg (27.5-34.5); MEAN CORPUSCULAR HGB CONC 32.3 g/dL (33.2-36.2); MEAN PLATELET VOLUME 8.9 fL (7.4-10.4); MONOCYTES % (AUTO) 16 % (2-9); NEUTROPHILS % (AUTO) 52 % (42-75); PLATELET COUNT 233 x10^3/uL (130-400); RED BLOOD COUNT 3.27 x10^6/uL (4.38-5.82); RED CELL DISTRIBUTION WIDTH 21.3 % (9.4-14.8)
[2020-11-11 06:19] LABS: ANION GAP 5 mmol/L (5-15); CALCIUM 8.5 mg/dL (8.5-10.1); CHLORIDE 100 mmol/L (98-107); CREATININE 1.56 mg/dL (0.7-1.3)
[2020-11-11 06:20] LABS: INTERNATIONAL NORMALIZED RATIO 3.14 (0.93-1.1); PROTHROMBIN TIME 32.9 Seconds (9.6-11.5)
[2020-11-11] MEDS: LEVOTHYROXINE 75 MCG TABLET PO SCH (06:32)
[2020-11-11] MEDS: ASPIRIN 81 MG TABLET EC PO SCH (06:32)
[2020-11-11 06:35] LABS: MD NO
[2020-11-11 07:27] VITALS: BP 102/67
[2020-11-11] MEDS: SIMETHICONE DROPS 40 MG/0.6 ML BOTTLE PO SCH ×3 (08:59→17:33)
[2020-11-11] MEDS: POLYETHYLENE GLYCOL 17 GM PACKET PO SCH ×2 (09:00→20:05)
[2020-11-11] MEDS: SENNA/DOCUSATE TABLET PO SCH (09:00)
[2020-11-11] MEDS: CHOLECALCIFEROL 5,000u TAB PO SCH (09:00)
[2020-11-11] MEDS: LACTULOSE 10 GM/15 ML UDC PO SCH ×2 (09:00→20:05)
[2020-11-11] MEDS: FUROSEMIDE 40 MG TABLET PO SCH (09:01)
[2020-11-11] MEDS: LUBIPROSTONE 24 MCG CAPSULE PO SCH ×2 (09:01→20:03)
[2020-11-11] MEDS: FAMOTIDINE 20 MG TABLET PO SCH ×2 (09:01→20:03)
[2020-11-11] MEDS: IRON SUCROSE COMPLEX 100MG/5ML IV SCH (09:01)
[2020-11-11] MEDS: SODIUM CHLORIDE FLUSH 10ML SYR IVF SCH ×2 (09:01→20:04)
[2020-11-11] MEDS: MUPIROCIN OINT 2%, 22GM TP SCH ×3 (09:02→20:05)
[2020-11-11] MEDS: SCOPOLAMINE PATCH, 1.5MG PATCH.TD72 TD SCH (10:32)
[2020-11-11 13:00] VITALS: BP 100/64
[2020-11-11] MEDS: METHOCARBAMOL 500 MG TABLET PO PRN (15:25)
[2020-11-11] MEDS ORDERED: WARFARIN 2.5 MG TABLET PO-COUM ONE (18:00)
[2020-11-11 18:28] VITALS: BP_SYST 100; BP_SYST 117; BP_DIAS 60; BP_DIAS 64
[2020-11-11] MEDS: ATORVASTATIN 40 MG TABLET PO SCH (20:03)
[2020-11-11] MEDS: TRAZODONE 50MG TABLET PO SCH (20:03)
[2020-11-11] MEDS: MELATONIN 5 MG TABLET PO PRN (21:41)
[2020-11-12 00:07] VITALS: BP 97/64
[2020-11-12] MEDS: METHOCARBAMOL 500 MG TABLET PO PRN ×3 (00:58→18:04)
[2020-11-12] MEDS: ONDANSETRON 2MG/ML, 2ML IVPush PRN ×4 (00:58→22:26)
[2020-11-12] MEDS: OXYcodone IR 5MG TABLET PO PRN ×5 (01:49→21:08)
[2020-11-12 05:43] LABS: BASOPHILS % (AUTO) 2 % (0-1); EOSINOPHILS % (AUTO) 1 % (1-7); LYMPHOCYTES % (AUTO) 25 % (22-44); MEAN CORPUSCULAR HEMOGLOBIN 28.4 pg (27.5-34.5); MEAN CORPUSCULAR HGB CONC 32.4 g/dL (33.2-36.2); MEAN PLATELET VOLUME 8.9 fL (7.4-10.4); MONOCYTES % (AUTO) 18 % (2-9); NEUTROPHILS % (AUTO) 54 % (42-75); PLATELET COUNT 238 x10^3/uL (130-400); RED BLOOD COUNT 3.41 x10^6/uL (4.38-5.82); RED CELL DISTRIBUTION WIDTH 21.2 % (9.4-14.8)
[2020-11-12 05:52] LABS: INTERNATIONAL NORMALIZED RATIO 2.92 (0.93-1.1); PROTHROMBIN TIME 30.6 Seconds (9.6-11.5)
[2020-11-12 05:58] LABS: ANION GAP 2 mmol/L (5-15); CALCIUM 8.7 mg/dL (8.5-10.1); CHLORIDE 100 mmol/L (98-107); CREATININE 1.37 mg/dL (0.7-1.3)
[2020-11-12] MEDS: LEVOTHYROXINE 75 MCG TABLET PO SCH (06:24)
[2020-11-12] MEDS: ASPIRIN 81 MG TABLET EC PO SCH (06:24)
[2020-11-12 06:41] LABS: MD MORPH REVIEW ONLY
[2020-11-12 06:42] LABS: OVALOCYTES 1+; POLYCHROMASIA 1+; TEAR DROPS 1+
[2020-11-12 06:43] LABS: <PLATELET ESTIMATE> ADEQUATE; LARGE PLATELETS 1+
[2020-11-12 06:44] VITALS: BP 100/62
[2020-11-12] MEDS: FUROSEMIDE 40 MG TABLET PO SCH (08:29)
[2020-11-12] MEDS: LUBIPROSTONE 24 MCG CAPSULE PO SCH ×2 (08:29→22:03)
[2020-11-12] MEDS: IRON SUCROSE COMPLEX 100MG/5ML IV SCH (08:29)
[2020-11-12] MEDS: CHOLECALCIFEROL 5,000u TAB PO SCH (08:29)
[2020-11-12] MEDS: SIMETHICONE DROPS 40 MG/0.6 ML BOTTLE PO SCH ×3 (08:29→18:03)
[2020-11-12] MEDS: FAMOTIDINE 20 MG TABLET PO SCH ×2 (08:30→22:04)
[2020-11-12] MEDS: SENNA/DOCUSATE TABLET PO SCH (08:30)
[2020-11-12] MEDS: MUPIROCIN OINT 2%, 22GM TP SCH ×3 (08:30→21:00)
[2020-11-12] MEDS: LACTULOSE 10 GM/15 ML UDC PO SCH ×2 (08:31→21:00)
[2020-11-12] MEDS: SODIUM CHLORIDE FLUSH 10ML SYR IVF SCH ×2 (08:31→22:00)
[2020-11-12] MEDS: POLYETHYLENE GLYCOL 17 GM PACKET PO SCH ×2 (08:31→21:00)
[2020-11-12 12:21] VITALS: BP 98/65
[2020-11-12] MEDS ORDERED: WARFARIN 2.5 MG TABLET PO-COUM ONE (18:00)
[2020-11-12 19:24] VITALS: BP 99/63
[2020-11-12] MEDS: ATORVASTATIN 40 MG TABLET PO SCH (22:03)
[2020-11-12] MEDS: TRAZODONE 50MG TABLET PO SCH (22:04)
[2020-11-12] MEDS: GUAIFENESIN 100 MG/5 ML, 5ML UDC PO PRN (22:27)
[2020-11-13 00:26] VITALS: BP 99/57
[2020-11-13] MEDS: OXYcodone IR 5MG TABLET PO PRN ×4 (03:48→17:57)
[2020-11-13] MEDS: ONDANSETRON 2MG/ML, 2ML IVPush PRN (03:53)
[2020-11-13] MEDS: ASPIRIN 81 MG TABLET EC PO SCH (05:15)
[2020-11-13] MEDS: LEVOTHYROXINE 75 MCG TABLET PO SCH (05:16)
[2020-11-13 05:42] LABS: INTERNATIONAL NORMALIZED RATIO 3.18 (0.93-1.1); PROTHROMBIN TIME 33.3 Seconds (9.6-11.5)
[2020-11-13 07:29] VITALS: BP 95/58
[2020-11-13] MEDS: SODIUM CHLORIDE FLUSH 10ML SYR IVF SCH ×2 (08:45→21:40)
[2020-11-13] MEDS: IRON SUCROSE COMPLEX 100MG/5ML IV SCH (08:45)
[2020-11-13] MEDS: LUBIPROSTONE 24 MCG CAPSULE PO SCH ×2 (08:48→21:00)
[2020-11-13] MEDS: FAMOTIDINE 20 MG TABLET PO SCH ×2 (08:48→21:36)
[2020-11-13] MEDS: CHOLECALCIFEROL 5,000u TAB PO SCH (08:48)
[2020-11-13] MEDS: POLYETHYLENE GLYCOL 17 GM PACKET PO SCH ×2 (09:00→21:00)
[2020-11-13] MEDS: SIMETHICONE DROPS 40 MG/0.6 ML BOTTLE PO SCH ×3 (09:00→18:02)
[2020-11-13] MEDS: SENNA/DOCUSATE TABLET PO SCH (09:00)
[2020-11-13] MEDS: LACTULOSE 10 GM/15 ML UDC PO SCH ×2 (09:00→21:00)
[2020-11-13] MEDS: MUPIROCIN OINT 2%, 22GM TP SCH ×3 (09:02→21:00)
[2020-11-13 12:03] VITALS: BP 109/59
[2020-11-13] MEDS: METHOCARBAMOL 500 MG TABLET PO PRN ×2 (14:40→20:21)
[2020-11-13] MEDS ORDERED: FUROSEMIDE 40 MG/4 ML IV SCH (17:00)
[2020-11-13] MEDS ORDERED: FUROSEMIDE 20 MG/2 ML ONE (17:49)
[2020-11-13] MEDS ORDERED: FUROSEMIDE 20 MG/2 ML IV ONE (18:00)
[2020-11-13] MEDS ORDERED: WARFARIN 2 MG TABLET PO-COUM ONE (18:00)
[2020-11-13] MEDS: SIMETHICONE 80 MG CHEW TAB PO SCH (18:07)
[2020-11-13 20:09] VITALS: BP 115/68
[2020-11-13] MEDS: TRAZODONE 50MG TABLET PO SCH (21:36)
[2020-11-13] MEDS: ATORVASTATIN 40 MG TABLET PO SCH (21:36)
[2020-11-14] MEDS: OXYcodone IR 5MG TABLET PO PRN ×3 (00:41→12:42)
[2020-11-14 00:49] VITALS: BP 96/63
[2020-11-14] MEDS: MELATONIN 5 MG TABLET PO PRN (00:55)
[2020-11-14 03:30] VITALS: BP 119/65
[2020-11-14 05:15] VITALS: BP 98/63
[2020-11-14 05:20] LABS: BASOPHILS % (AUTO) 3 % (0-1); EOSINOPHILS % (AUTO) 1 % (1-7); LYMPHOCYTES % (AUTO) 29 % (22-44); MEAN CORPUSCULAR HEMOGLOBIN 28.3 pg (27.5-34.5); MEAN CORPUSCULAR HGB CONC 31.9 g/dL (33.2-36.2); MONOCYTES % (AUTO) 15 % (2-9); NEUTROPHILS % (AUTO) 52 % (42-75); PLATELET COUNT 248 x10^3/uL (130-400); RED BLOOD COUNT 3.67 x10^6/uL (4.38-5.82); RED CELL DISTRIBUTION WIDTH 21.5 % (9.4-14.8)
[2020-11-14 05:22] LABS: MD NO
[2020-11-14 05:30] LABS: PROTHROMBIN TIME 31.4 Seconds (9.6-11.5)
[2020-11-14] MEDS: LEVOTHYROXINE 75 MCG TABLET PO SCH (05:30)
[2020-11-14] MEDS: ASPIRIN 81 MG TABLET EC PO SCH (05:30)
[2020-11-14 05:34] LABS: ANION GAP 4 mmol/L (5-15); CALCIUM 8.8 mg/dL (8.5-10.1); CHLORIDE 98 mmol/L (98-107); CREATININE 1.16 mg/dL (0.7-1.3)
[2020-11-14 07:27] VITALS: BP 113/76
[2020-11-14] MEDS: SIMETHICONE 80 MG CHEW TAB PO SCH ×2 (08:00→13:00)
[2020-11-14] MEDS: SODIUM CHLORIDE FLUSH 10ML SYR IVF SCH ×2 (09:00→22:35)
[2020-11-14] MEDS: SENNA/DOCUSATE TABLET PO SCH (09:00)
[2020-11-14] MEDS: POLYETHYLENE GLYCOL 17 GM PACKET PO SCH ×2 (09:00→21:00)
[2020-11-14] MEDS: LUBIPROSTONE 24 MCG CAPSULE PO SCH ×2 (09:00→21:00)
[2020-11-14] MEDS: FAMOTIDINE 20 MG TABLET PO SCH ×2 (09:00→21:00)
[2020-11-14] MEDS: LACTULOSE 10 GM/15 ML UDC PO SCH ×2 (09:00→21:00)
[2020-11-14] MEDS: CHOLECALCIFEROL 5,000u TAB PO SCH (09:27)
[2020-11-14] MEDS: IRON SUCROSE COMPLEX 100MG/5ML IV SCH (09:32)
[2020-11-14] MEDS ORDERED: VANCOMYCIN PER PHARMACY MC PRN (10:00)
[2020-11-14] MEDS ORDERED: PHARMACOKINETIC MONITORING MC PRN (11:00)
[2020-11-14] MEDS: SCOPOLAMINE PATCH, 1.5MG PATCH.TD72 TD SCH (11:00)
[2020-11-14] MEDS ORDERED: VANCOMYCIN 2,500 MG in SODIUM CHLORIDE 0.9% 500 ML IV ONE (12:00)
[2020-11-14] MEDS: AMPICILLIN/SULBACTAM 3 GM in SODIUM CHLORIDE 0.9% 100 ML IV SCH ×3 (12:42→22:54)
[2020-11-14 13:32] LABS: MICROSCOPIC INDICATED
[2020-11-14 14:00] VITALS: BP 97/59
[2020-11-14] MEDS: MUPIROCIN OINT 2%, 22GM TP SCH ×3 (14:39→22:34)
[2020-11-14] MEDS: FERROUS GLUCONATE 324 MG TABLET PO SCH (16:56)
[2020-11-14] MEDS: SIMETHICONE DROPS 40 MG/0.6 ML BOTTLE PO PRN ×2 (16:56→22:52)
[2020-11-14] MEDS ORDERED: WARFARIN 2.5 MG TABLET PO-COUM ONE (18:00)
[2020-11-14 18:32] VITALS: BP 102/63
[2020-11-14] MEDS: ATORVASTATIN 40 MG TABLET PO SCH (21:00)
[2020-11-14] MEDS: TRAZODONE 50MG TABLET PO SCH (22:35)
[2020-11-15] MEDS ORDERED: VANCOMYCIN 2,200 MG in SODIUM CHLORIDE 0.9% 500 ML IV ONE
[2020-11-15 01:45] VITALS: BP 125/74
[2020-11-15] MEDS: AMPICILLIN/SULBACTAM 3 GM in SODIUM CHLORIDE 0.9% 100 ML IV SCH ×4 (04:56→22:48)
[2020-11-15 05:15] LABS: BASOPHILS % (AUTO) 2 % (0-1); EOSINOPHILS % (AUTO) 1 % (1-7); LYMPHOCYTES % (AUTO) 19 % (22-44); MEAN CORPUSCULAR HEMOGLOBIN 28.1 pg (27.5-34.5); MEAN CORPUSCULAR HGB CONC 31.9 g/dL (33.2-36.2); MEAN PLATELET VOLUME 8.8 fL (7.4-10.4); MONOCYTES % (AUTO) 13 % (2-9); NEUTROPHILS % (AUTO) 65 % (42-75); PLATELET COUNT 221 x10^3/uL (130-400)
[2020-11-15 05:17] LABS: MD NO
[2020-11-15 05:25] LABS: INTERNATIONAL NORMALIZED RATIO 3.07 (0.93-1.1); PROTHROMBIN TIME 32.1 Seconds (9.6-11.5)
[2020-11-15 05:31] LABS: ALBUMIN 2.5 g/dL (3.4-5.0); ANION GAP 4 mmol/L (5-15); CALCIUM 8.7 mg/dL (8.5-10.1); CHLORIDE 102 mmol/L (98-107)
[2020-11-15 05:35] LABS: ALANINE AMINOTRANSFERASE 9 U/L (12-78); ALKALINE PHOSPHATASE 77 U/L (45-117); CREATININE 1.14 mg/dL (0.7-1.3); TOTAL PROTEIN 6.1 g/dL (6.4-8.2)
[2020-11-15] MEDS: ASPIRIN 81 MG TABLET EC PO SCH (06:00)
[2020-11-15] MEDS: LEVOTHYROXINE 75 MCG TABLET PO SCH (06:36)
[2020-11-15 06:58] VITALS: BP 100/55
[2020-11-15] MEDS: SODIUM CHLORIDE FLUSH 10ML SYR IVF SCH ×2 (09:00→21:00)
[2020-11-15] MEDS: LACTULOSE 10 GM/15 ML UDC PO SCH ×2 (10:09→20:06)
[2020-11-15] MEDS: FERROUS GLUCONATE 324 MG TABLET PO SCH ×2 (10:09→17:02)
[2020-11-15] MEDS: POLYETHYLENE GLYCOL 17 GM PACKET PO SCH ×2 (10:09→20:06)
[2020-11-15] MEDS: LUBIPROSTONE 24 MCG CAPSULE PO SCH ×2 (10:10→20:06)
[2020-11-15] MEDS: SENNA/DOCUSATE TABLET PO SCH (10:10)
[2020-11-15] MEDS: FAMOTIDINE 20 MG TABLET PO SCH ×2 (10:15→20:06)
[2020-11-15] MEDS: OXYcodone IR 5MG TABLET PO PRN ×3 (10:44→18:21)
[2020-11-15] MEDS: CHOLECALCIFEROL 5,000u TAB PO SCH (10:45)
[2020-11-15] MEDS: MUPIROCIN OINT 2%, 22GM TP SCH (10:47)
[2020-11-15] MEDS: ONDANSETRON 2MG/ML, 2ML IVPush PRN ×2 (10:58→15:43)
[2020-11-15 12:32] VITALS: BP 99/64
[2020-11-15] MEDS ORDERED: WARFARIN 2.5 MG TABLET PO-COUM ONE (18:00)
[2020-11-15] MEDS ORDERED: VANCOMYCIN 2,200 MG in SODIUM CHLORIDE 0.9% 500 ML IV SCH (18:00)
[2020-11-15 18:17] VITALS: BP 125/70
[2020-11-15 20:05] VITALS: BP 96/58
[2020-11-15] MEDS: ATORVASTATIN 40 MG TABLET PO SCH (20:06)
[2020-11-15] MEDS: TRAZODONE 50MG TABLET PO SCH (20:06)
[2020-11-15] MEDS: MELATONIN 5 MG TABLET PO PRN (21:26)
[2020-11-16 00:35] VITALS: BP 118/74
[2020-11-16] MEDS: OXYcodone IR 5MG TABLET PO PRN ×2 (00:39→22:28)
[2020-11-16] MEDS: ONDANSETRON 2MG/ML, 2ML IVPush PRN (03:23)
[2020-11-16] MEDS: ASPIRIN 81 MG TABLET EC PO SCH (05:22)
[2020-11-16] MEDS: LEVOTHYROXINE 75 MCG TABLET PO SCH (05:22)
[2020-11-16] MEDS: AMPICILLIN/SULBACTAM 3 GM in SODIUM CHLORIDE 0.9% 100 ML IV SCH ×4 (05:22→23:53)
[2020-11-16 06:16] LABS: INTERNATIONAL NORMALIZED RATIO 2.89 (0.93-1.1); PROTHROMBIN TIME 30.3 Seconds (9.6-11.5)
[2020-11-16 06:40] VITALS: BP 105/67
[2020-11-16] MEDS: FAMOTIDINE 20 MG TABLET PO SCH ×2 (08:28→20:55)
[2020-11-16] MEDS: SENNA/DOCUSATE TABLET PO SCH (08:28)
[2020-11-16] MEDS: POLYETHYLENE GLYCOL 17 GM PACKET PO SCH ×2 (08:28→20:55)
[2020-11-16] MEDS: LUBIPROSTONE 24 MCG CAPSULE PO SCH ×2 (08:28→20:55)
[2020-11-16] MEDS: CHOLECALCIFEROL 5,000u TAB PO SCH (08:28)
[2020-11-16] MEDS: LACTULOSE 10 GM/15 ML UDC PO SCH ×2 (08:28→20:55)
[2020-11-16] MEDS: FERROUS GLUCONATE 324 MG TABLET PO SCH ×2 (08:28→18:02)
[2020-11-16] MEDS: SODIUM CHLORIDE FLUSH 10ML SYR IVF SCH ×2 (08:29→20:55)
[2020-11-16 13:24] VITALS: BP 117/75
[2020-11-16] MEDS ORDERED: WARFARIN 5 MG TABLET PO-COUM ONE (17:35)
[2020-11-16] MEDS ORDERED: WARFARIN 2.5 MG TABLET PO-COUM ONE (18:00)
[2020-11-16 19:42] VITALS: BP 108/69
[2020-11-16 20:53] VITALS: BP 112/73
[2020-11-16] MEDS: ATORVASTATIN 40 MG TABLET PO SCH (20:55)
[2020-11-16] MEDS: TRAZODONE 50MG TABLET PO SCH (23:46)
[2020-11-17 00:20] VITALS: BP 133/75
[2020-11-17 04:29] VITALS: BP 105/64
[2020-11-17] MEDS: OXYcodone IR 5MG TABLET PO PRN ×4 (04:36→21:32)
[2020-11-17] MEDS: ONDANSETRON 2MG/ML, 2ML IVPush PRN ×3 (04:36→23:46)
[2020-11-17] MEDS: AMPICILLIN/SULBACTAM 3 GM in SODIUM CHLORIDE 0.9% 100 ML IV SCH ×3 (05:35→17:36)
[2020-11-17] MEDS: LEVOTHYROXINE 75 MCG TABLET PO SCH (05:35)
[2020-11-17] MEDS: ASPIRIN 81 MG TABLET EC PO SCH (05:35)
[2020-11-17 06:03] LABS: INTERNATIONAL NORMALIZED RATIO 3.29 (0.93-1.1); PROTHROMBIN TIME 34.4 Seconds (9.6-11.5)
[2020-11-17 07:02] VITALS: BP 103/66
[2020-11-17] MEDS: LACTULOSE 10 GM/15 ML UDC PO SCH ×2 (08:21→22:37)
[2020-11-17] MEDS: SODIUM CHLORIDE FLUSH 10ML SYR IVF SCH ×2 (08:22→22:38)
[2020-11-17] MEDS: SENNA/DOCUSATE TABLET PO SCH (08:22)
[2020-11-17] MEDS: LUBIPROSTONE 24 MCG CAPSULE PO SCH ×2 (08:22→22:38)
[2020-11-17] MEDS: CHOLECALCIFEROL 5,000u TAB PO SCH (08:23)
[2020-11-17] MEDS: POLYETHYLENE GLYCOL 17 GM PACKET PO SCH ×2 (08:23→22:38)
[2020-11-17] MEDS: FERROUS GLUCONATE 324 MG TABLET PO SCH ×2 (08:23→17:32)
[2020-11-17] MEDS: FAMOTIDINE 20 MG TABLET PO SCH ×2 (08:23→22:38)
[2020-11-17] MEDS: SCOPOLAMINE PATCH, 1.5MG PATCH.TD72 TD SCH (11:43)
[2020-11-17 13:27] VITALS: BP 111/68
[2020-11-17] MEDS ORDERED: WARFARIN 1 MG TABLET PO-COUM ONE (18:00)
[2020-11-17] MEDS: MEROPENEM 1 GM in SODIUM CHLORIDE 0.9% 100 ML IV SCH (18:46)
[2020-11-17 19:12] VITALS: BP 119/65
[2020-11-17 21:26] VITALS: BP 118/74
[2020-11-17] MEDS: TRAZODONE 50MG TABLET PO SCH (22:37)
[2020-11-17] MEDS: ATORVASTATIN 40 MG TABLET PO SCH (22:38)
[2020-11-18] MEDS: MEROPENEM 1 GM in SODIUM CHLORIDE 0.9% 100 ML IV SCH ×3 (02:31→18:34)
[2020-11-18 02:59] VITALS: BP 101/67
[2020-11-18 04:59] VITALS: BP 117/72
[2020-11-18] MEDS: ASPIRIN 81 MG TABLET EC PO SCH (05:02)
[2020-11-18] MEDS: OXYcodone IR 5MG TABLET PO PRN ×2 (05:02→17:21)
[2020-11-18] MEDS: LEVOTHYROXINE 75 MCG TABLET PO SCH (05:04)
[2020-11-18 06:41] LABS: INTERNATIONAL NORMALIZED RATIO 3.83 (0.93-1.1); PROTHROMBIN TIME 39.9 Seconds (9.6-11.5)
[2020-11-18 06:49] VITALS: BP 111/70
[2020-11-18] MEDS: POLYETHYLENE GLYCOL 17 GM PACKET PO SCH ×2 (10:45→21:14)
[2020-11-18] MEDS: FAMOTIDINE 20 MG TABLET PO SCH ×2 (10:45→21:13)
[2020-11-18] MEDS: FERROUS GLUCONATE 324 MG TABLET PO SCH ×2 (10:45→17:20)
[2020-11-18] MEDS: CHOLECALCIFEROL 5,000u TAB PO SCH (10:45)
[2020-11-18] MEDS: SODIUM CHLORIDE FLUSH 10ML SYR IVF SCH ×2 (10:45→21:14)
[2020-11-18] MEDS: LUBIPROSTONE 24 MCG CAPSULE PO SCH ×2 (10:45→21:11)
[2020-11-18] MEDS: LACTULOSE 10 GM/15 ML UDC PO SCH ×2 (10:45→21:11)
[2020-11-18] MEDS: SENNA/DOCUSATE TABLET PO SCH (10:45)
[2020-11-18] MEDS: ONDANSETRON 2MG/ML, 2ML IVPush PRN (10:57)
[2020-11-18] MEDS ORDERED: HOLD COUMADIN MC PRN (12:00)
[2020-11-18 14:00] VITALS: BP 122/74
[2020-11-18 20:29] VITALS: BP 112/75
[2020-11-18] MEDS: TRAZODONE 50MG TABLET PO SCH (21:13)
[2020-11-18] MEDS: ATORVASTATIN 40 MG TABLET PO SCH (21:13)
[2020-11-19] VITALS (8 sets, daily range): BP systolic 73–126; BP diastolic 46–87
[2020-11-19] MEDS: MEROPENEM 1 GM in SODIUM CHLORIDE 0.9% 100 ML IV SCH ×3 (03:08→18:43)
[2020-11-19] MEDS: OXYcodone IR 5MG TABLET PO PRN ×2 (03:20→20:00)
[2020-11-19 05:30] LABS: INTERNATIONAL NORMALIZED RATIO 2.67 (0.93-1.1)
[2020-11-19] MEDS: ASPIRIN 81 MG TABLET EC PO SCH (05:40)
[2020-11-19] MEDS: LEVOTHYROXINE 75 MCG TABLET PO SCH (05:40)
[2020-11-19] MEDS: SODIUM CHLORIDE FLUSH 10ML SYR IVF SCH ×2 (09:00→21:34)
[2020-11-19] MEDS: ONDANSETRON 2MG/ML, 2ML IVPush PRN (09:03)
[2020-11-19] MEDS: SENNA/DOCUSATE TABLET PO SCH (09:03)
[2020-11-19] MEDS: LUBIPROSTONE 24 MCG CAPSULE PO SCH ×2 (09:04→21:33)
[2020-11-19] MEDS: FAMOTIDINE 20 MG TABLET PO SCH ×2 (09:04→21:34)
[2020-11-19] MEDS: FERROUS GLUCONATE 324 MG TABLET PO SCH ×2 (09:04→18:44)
[2020-11-19] MEDS: CHOLECALCIFEROL 5,000u TAB PO SCH (09:04)
[2020-11-19] MEDS: LACTULOSE 10 GM/15 ML UDC PO SCH ×2 (09:05→21:33)
[2020-11-19] MEDS: POLYETHYLENE GLYCOL 17 GM PACKET PO SCH ×2 (09:05→21:33)
[2020-11-19] MEDS ORDERED: SODIUM CHLORIDE 0.9% 1,000 ML IV SCH (10:00)
[2020-11-19 10:35] LABS: BASOPHILS % (AUTO) 0 % (0-1); EOSINOPHILS % (AUTO) 1 % (1-7); LYMPHOCYTES % (AUTO) 25 % (22-44); MEAN CORPUSCULAR HGB CONC 32.5 g/dL (33.2-36.2); MEAN PLATELET VOLUME 8.3 fL (7.4-10.4); MONOCYTES % (AUTO) 17 % (2-9); NEUTROPHILS % (AUTO) 57 % (42-75); PLATELET COUNT 203 x10^3/uL (130-400); RED BLOOD COUNT 3.23 x10^6/uL (4.38-5.82); RED CELL DISTRIBUTION WIDTH 21.8 % (9.4-14.8)
[2020-11-19 10:36] LABS: MD NO
[2020-11-19 10:46] LABS: ALANINE AMINOTRANSFERASE 15 U/L (12-78); ALBUMIN 2.2 g/dL (3.4-5.0); ANION GAP 5 mmol/L (5-15); CALCIUM 7.8 mg/dL (8.5-10.1); CHLORIDE 106 mmol/L (98-107); CREATININE 0.79 mg/dL (0.7-1.3)
[2020-11-19 10:49] LABS: ALKALINE PHOSPHATASE 66 U/L (45-117); BILIRUBIN,TOTAL 1.2 mg/dL (0.2-1.0); TOTAL PROTEIN 5.6 g/dL (6.4-8.2)
[2020-11-19 10:51] LABS: TROPONIN I < 0.015 ng/mL (0.000-0.045)
[2020-11-19 13:27] LABS: TROPONIN I < 0.015 ng/mL (0.000-0.045)
[2020-11-19] MEDS ORDERED: WARFARIN 2 MG TABLET PO-COUM ONE (18:00)
[2020-11-19] MEDS: TRAZODONE 50MG TABLET PO SCH (21:33)
[2020-11-19] MEDS: ATORVASTATIN 40 MG TABLET PO SCH (21:33)
[2020-11-20] VITALS (7 sets, daily range): BP systolic 83–137; BP diastolic 54–99
[2020-11-20] MEDS: ONDANSETRON 2MG/ML, 2ML IVPush PRN ×2 (02:14→06:14)
[2020-11-20] MEDS: OXYcodone IR 5MG TABLET PO PRN ×3 (02:15→22:22)
[2020-11-20] MEDS: MEROPENEM 1 GM in SODIUM CHLORIDE 0.9% 100 ML IV SCH ×3 (02:31→18:04)
[2020-11-20 05:47] LABS: INTERNATIONAL NORMALIZED RATIO 2.42 (0.93-1.1); PROTHROMBIN TIME 25.5 Seconds (9.6-11.5)
[2020-11-20] MEDS: LEVOTHYROXINE 75 MCG TABLET PO SCH (05:48)
[2020-11-20] MEDS: ASPIRIN 81 MG TABLET EC PO SCH (05:48)
[2020-11-20] MEDS: LACTULOSE 10 GM/15 ML UDC PO SCH ×2 (08:39→21:06)
[2020-11-20] MEDS: SENNA/DOCUSATE TABLET PO SCH (08:40)
[2020-11-20] MEDS: POLYETHYLENE GLYCOL 17 GM PACKET PO SCH ×2 (08:40→21:06)
[2020-11-20] MEDS: FAMOTIDINE 20 MG TABLET PO SCH ×2 (08:40→21:06)
[2020-11-20] MEDS: LUBIPROSTONE 24 MCG CAPSULE PO SCH ×2 (08:40→21:00)
[2020-11-20] MEDS: FERROUS GLUCONATE 324 MG TABLET PO SCH ×2 (08:40→18:04)
[2020-11-20] MEDS: CHOLECALCIFEROL 5,000u TAB PO SCH (08:40)
[2020-11-20] MEDS: SODIUM CHLORIDE FLUSH 10ML SYR IVF SCH ×2 (08:48→21:00)
[2020-11-20] MEDS ORDERED: SODIUM CHLORIDE 0.9%, 500ML IVBOLUS ONE (10:30)
[2020-11-20] MEDS: MIDODRINE 5 MG TABLET PO SCH (10:44)
[2020-11-20] MEDS: SCOPOLAMINE PATCH, 1.5MG PATCH.TD72 TD SCH (11:00)
[2020-11-20] MEDS: ONDANSETRON 4 MG TABLET PO PRN (13:44)
[2020-11-20] MEDS ORDERED: WARFARIN 2 MG TABLET PO-COUM ONE (18:00)
[2020-11-20] MEDS: ATORVASTATIN 40 MG TABLET PO SCH (21:06)
[2020-11-20] MEDS: TRAZODONE 50MG TABLET PO SCH (21:12)
[2020-11-21] MEDS: MELATONIN 5 MG TABLET PO PRN ×2 (00:40→22:59)
[2020-11-21 01:08] VITALS: BP 118/75
[2020-11-21] MEDS: MEROPENEM 1 GM in SODIUM CHLORIDE 0.9% 100 ML IV SCH ×3 (02:39→16:55)
[2020-11-21] MEDS: ONDANSETRON 2MG/ML, 2ML IVPush PRN ×3 (02:39→22:59)
[2020-11-21 02:43] VITALS: BP 109/66
[2020-11-21] MEDS: SIMETHICONE DROPS 40 MG/0.6 ML BOTTLE PO PRN (03:00)
[2020-11-21] MEDS: OXYcodone IR 5MG TABLET PO PRN ×3 (04:35→19:17)
[2020-11-21] MEDS: ASPIRIN 81 MG TABLET EC PO SCH (04:36)
[2020-11-21] MEDS: LEVOTHYROXINE 75 MCG TABLET PO SCH (04:36)
[2020-11-21 05:01] LABS: INTERNATIONAL NORMALIZED RATIO 2.24 (0.93-1.1); PROTHROMBIN TIME 23.6 Seconds (9.6-11.5)
[2020-11-21 08:40] VITALS: BP 114/72
[2020-11-21] MEDS: POLYETHYLENE GLYCOL 17 GM PACKET PO SCH ×2 (09:25→19:15)
[2020-11-21] MEDS: FAMOTIDINE 20 MG TABLET PO SCH ×2 (09:26→19:18)
[2020-11-21] MEDS: LUBIPROSTONE 24 MCG CAPSULE PO SCH ×2 (09:26→19:18)
[2020-11-21] MEDS: LACTULOSE 10 GM/15 ML UDC PO SCH ×2 (09:26→19:16)
[2020-11-21] MEDS: MIDODRINE 5 MG TABLET PO SCH (09:26)
[2020-11-21] MEDS: FERROUS GLUCONATE 324 MG TABLET PO SCH ×2 (09:26→16:55)
[2020-11-21] MEDS: SENNA/DOCUSATE TABLET PO SCH (09:26)
[2020-11-21] MEDS: CHOLECALCIFEROL 5,000u TAB PO SCH (09:26)
[2020-11-21] MEDS: SODIUM CHLORIDE FLUSH 10ML SYR IVF SCH ×2 (09:26→19:17)
[2020-11-21] MEDS ORDERED: GASTROGRAFIN 120 ML SOLN PO ONE (11:43)
[2020-11-21 14:45] VITALS: BP 127/78
[2020-11-21] MEDS ORDERED: WARFARIN 2.5 MG TABLET PO-COUM ONE (18:00)
[2020-11-21 18:39] VITALS: BP 105/62
[2020-11-21] MEDS: TRAZODONE 50MG TABLET PO SCH (19:16)
[2020-11-21] MEDS: ATORVASTATIN 40 MG TABLET PO SCH (21:11)
[2020-11-22 00:05] VITALS: BP 104/70
[2020-11-22] MEDS: OXYcodone IR 5MG TABLET PO PRN ×4 (01:59→23:07)
[2020-11-22] MEDS: MEROPENEM 1 GM in SODIUM CHLORIDE 0.9% 100 ML IV SCH ×3 (02:23→18:04)
[2020-11-22] MEDS: METHOCARBAMOL 500 MG TABLET PO PRN (04:17)
[2020-11-22] MEDS: LEVOTHYROXINE 75 MCG TABLET PO SCH (04:53)
[2020-11-22] MEDS: ASPIRIN 81 MG TABLET EC PO SCH (04:55)
[2020-11-22 06:14] LABS: INTERNATIONAL NORMALIZED RATIO 2.14 (0.93-1.1); PROTHROMBIN TIME 22.6 Seconds (9.6-11.5)
[2020-11-22 08:17] VITALS: BP 112/72
[2020-11-22] MEDS: LACTULOSE 10 GM/15 ML UDC PO SCH ×2 (09:00→20:41)
[2020-11-22] MEDS: POLYETHYLENE GLYCOL 17 GM PACKET PO SCH ×2 (09:00→20:41)
[2020-11-22] MEDS: FERROUS GLUCONATE 324 MG TABLET PO SCH ×2 (10:32→16:47)
[2020-11-22] MEDS: SENNA/DOCUSATE TABLET PO SCH (10:32)
[2020-11-22] MEDS: CHOLECALCIFEROL 5,000u TAB PO SCH (10:32)
[2020-11-22] MEDS: SODIUM CHLORIDE FLUSH 10ML SYR IVF SCH ×2 (10:33→20:42)
[2020-11-22] MEDS: FAMOTIDINE 20 MG TABLET PO SCH ×2 (10:33→20:38)
[2020-11-22] MEDS: MIDODRINE 5 MG TABLET PO SCH (10:33)
[2020-11-22] MEDS: LUBIPROSTONE 24 MCG CAPSULE PO SCH ×2 (10:33→20:39)
[2020-11-22 13:46] VITALS: BP 120/84
[2020-11-22] MEDS ORDERED: OXYBUTYNIN CHLORIDE 5 MG TABLET ONE (15:15)
[2020-11-22] MEDS: OXYBUTYNIN CHLORIDE 5 MG TABLET PO SCH ×2 (15:31→20:39)
[2020-11-22] MEDS: WARFARIN 2 MG TABLET PO-COUM ONE ×2 (18:01→18:03)
[2020-11-22] MEDS: SIMETHICONE DROPS 40 MG/0.6 ML BOTTLE PO PRN (18:04)
[2020-11-22 19:35] VITALS: BP 105/62
[2020-11-22] MEDS: ATORVASTATIN 40 MG TABLET PO SCH (20:37)
[2020-11-22] MEDS: TRAZODONE 50MG TABLET PO SCH (20:39)
[2020-11-22] MEDS: ONDANSETRON 2MG/ML, 2ML IVPush PRN (20:51)
[2020-11-23] MEDS: MEROPENEM 1 GM in SODIUM CHLORIDE 0.9% 100 ML IV SCH ×3 (02:50→18:02)
[2020-11-23] MEDS: ONDANSETRON 2MG/ML, 2ML IVPush PRN ×2 (02:58→14:21)
[2020-11-23 03:43] VITALS: BP 101/52
[2020-11-23] MEDS: LEVOTHYROXINE 75 MCG TABLET PO SCH (05:05)
[2020-11-23] MEDS: OXYcodone IR 5MG TABLET PO PRN ×3 (05:05→18:08)
[2020-11-23] MEDS: ASPIRIN 81 MG TABLET EC PO SCH (05:05)
[2020-11-23 05:07] LABS: BASOPHILS % (AUTO) 1 % (0-1); EOSINOPHILS % (AUTO) 1 % (1-7); LYMPHOCYTES % (AUTO) 21 % (22-44); MEAN CORPUSCULAR HEMOGLOBIN 29.3 pg (27.5-34.5); MEAN CORPUSCULAR HGB CONC 31.7 g/dL (33.2-36.2); MEAN PLATELET VOLUME 9.4 fL (7.4-10.4); MONOCYTES % (AUTO) 12 % (2-9); NEUTROPHILS % (AUTO) 64 % (42-75); PLATELET COUNT 200 x10^3/uL (130-400); RED BLOOD COUNT 3.69 x10^6/uL (4.38-5.82); RED CELL DISTRIBUTION WIDTH 24.4 % (9.4-14.8)
[2020-11-23 05:10] LABS: MD NO
[2020-11-23 05:17] LABS: ALANINE AMINOTRANSFERASE 23 U/L (12-78); ALBUMIN 2.3 g/dL (3.4-5.0); ANION GAP 4 mmol/L (5-15); CALCIUM 8.3 mg/dL (8.5-10.1); CHLORIDE 104 mmol/L (98-107); CREATININE 0.86 mg/dL (0.7-1.3)
[2020-11-23 05:18] LABS: ALKALINE PHOSPHATASE 94 U/L (45-117); BILIRUBIN,TOTAL 1.1 mg/dL (0.2-1.0)
[2020-11-23 07:25] VITALS: BP 116/64
[2020-11-23 08:06] LABS: INTERNATIONAL NORMALIZED RATIO 2.36 (0.93-1.1); PROTHROMBIN TIME 24.8 Seconds (9.6-11.5)
[2020-11-23] MEDS: LUBIPROSTONE 24 MCG CAPSULE PO SCH ×2 (09:00→21:25)
[2020-11-23] MEDS: POLYETHYLENE GLYCOL 17 GM PACKET PO SCH ×3 (09:00→21:26)
[2020-11-23] MEDS: SENNA/DOCUSATE TABLET PO SCH (09:49)
[2020-11-23] MEDS: CHOLECALCIFEROL 5,000u TAB PO SCH (09:50)
[2020-11-23] MEDS: FERROUS GLUCONATE 324 MG TABLET PO SCH ×2 (09:50→18:05)
[2020-11-23] MEDS: LACTULOSE 10 GM/15 ML UDC PO SCH ×2 (09:51→21:25)
[2020-11-23] MEDS: FAMOTIDINE 20 MG TABLET PO SCH ×2 (09:51→21:25)
[2020-11-23] MEDS: OXYBUTYNIN CHLORIDE 5 MG TABLET PO SCH ×2 (09:51→21:25)
[2020-11-23] MEDS: SODIUM CHLORIDE FLUSH 10ML SYR IVF SCH ×2 (09:52→21:26)
[2020-11-23] MEDS: SCOPOLAMINE PATCH, 1.5MG PATCH.TD72 TD SCH (10:45)
[2020-11-23 13:40] VITALS: BP 104/63
[2020-11-23] MEDS: SIMETHICONE DROPS 40 MG/0.6 ML BOTTLE PO PRN (15:36)
[2020-11-23] MEDS ORDERED: WARFARIN 1 MG TABLET PO-COUM ONE (18:00)
[2020-11-23 19:50] VITALS: BP 99/52
[2020-11-23] MEDS: TRAZODONE 50MG TABLET PO SCH (21:25)
[2020-11-23] MEDS: ATORVASTATIN 40 MG TABLET PO SCH (21:25)
[2020-11-24 00:57] VITALS: BP 107/66
[2020-11-24] MEDS: MEROPENEM 1 GM in SODIUM CHLORIDE 0.9% 100 ML IV SCH (02:34)
[2020-11-24] MEDS: OXYcodone IR 5MG TABLET PO PRN ×3 (02:37→23:00)
[2020-11-24] MEDS: ONDANSETRON 2MG/ML, 2ML IVPush PRN ×2 (02:38→07:31)
[2020-11-24] MEDS: ASPIRIN 81 MG TABLET EC PO SCH (05:24)
[2020-11-24] MEDS: LEVOTHYROXINE 75 MCG TABLET PO SCH (05:25)
[2020-11-24 06:06] LABS: INTERNATIONAL NORMALIZED RATIO 2.22 (0.93-1.1); PROTHROMBIN TIME 23.4 Seconds (9.6-11.5)
[2020-11-24 08:05] VITALS: BP 108/71
[2020-11-24] MEDS: SODIUM CHLORIDE FLUSH 10ML SYR IVF SCH ×2 (08:50→21:45)
[2020-11-24] MEDS: LUBIPROSTONE 24 MCG CAPSULE PO SCH ×2 (08:50→21:00)
[2020-11-24] MEDS: CHOLECALCIFEROL 5,000u TAB PO SCH (08:52)
[2020-11-24] MEDS: SENNA/DOCUSATE TABLET PO SCH (08:52)
[2020-11-24] MEDS: FAMOTIDINE 20 MG TABLET PO SCH ×2 (08:52→21:46)
[2020-11-24] MEDS: OXYBUTYNIN CHLORIDE 5 MG TABLET PO SCH ×2 (08:52→21:46)
[2020-11-24] MEDS: FERROUS GLUCONATE 324 MG TABLET PO SCH ×2 (08:53→17:00)
[2020-11-24] MEDS: LACTULOSE 10 GM/15 ML UDC PO SCH ×2 (08:53→21:00)
[2020-11-24] MEDS: POLYETHYLENE GLYCOL 17 GM PACKET PO SCH ×2 (08:53→21:00)
[2020-11-24] MEDS: LIDODERM 5% PATCH TD SCH (12:14)
[2020-11-24 15:02] VITALS: BP 133/83
[2020-11-24] MEDS: ALBUTEROL-IPRATROPIUM MDI INH INH PRN (16:30)
[2020-11-24] MEDS ORDERED: WARFARIN 2 MG TABLET PO-COUM ONE (18:00)
[2020-11-24] MEDS: ALBUTEROL-IPRATROPIUM MDI INH INH SCH (20:28)
[2020-11-24 20:29] VITALS: BP 132/73
[2020-11-24] MEDS: TRAZODONE 50MG TABLET PO SCH (21:46)
[2020-11-24] MEDS: ATORVASTATIN 40 MG TABLET PO SCH (21:46)
[2020-11-25] MEDS: LIDODERM REMOVE PATCH NOTE XX SCH
[2020-11-25 01:07] VITALS: BP 119/59
[2020-11-25 05:51] LABS: INTERNATIONAL NORMALIZED RATIO 2.06 (0.93-1.1); PROTHROMBIN TIME 21.7 Seconds (9.6-11.5)
[2020-11-25] MEDS: ASPIRIN 81 MG TABLET EC PO SCH (06:17)
[2020-11-25] MEDS: LEVOTHYROXINE 75 MCG TABLET PO SCH (06:18)
[2020-11-25] MEDS: ALBUTEROL-IPRATROPIUM MDI INH INH SCH ×4 (07:00→15:15)
[2020-11-25 07:44] VITALS: BP 121/75
[2020-11-25] MEDS: FAMOTIDINE 20 MG TABLET PO SCH ×2 (08:40→21:25)
[2020-11-25] MEDS: FERROUS GLUCONATE 324 MG TABLET PO SCH ×2 (08:40→17:42)
[2020-11-25] MEDS: LUBIPROSTONE 24 MCG CAPSULE PO SCH ×2 (08:40→21:00)
[2020-11-25] MEDS: CHOLECALCIFEROL 5,000u TAB PO SCH (08:41)
[2020-11-25] MEDS: SENNA/DOCUSATE TABLET PO SCH (08:41)
[2020-11-25] MEDS: OXYBUTYNIN CHLORIDE 5 MG TABLET PO SCH ×2 (08:41→21:25)
[2020-11-25] MEDS: POLYETHYLENE GLYCOL 17 GM PACKET PO SCH ×3 (08:42→21:00)
[2020-11-25] MEDS: LACTULOSE 10 GM/15 ML UDC PO SCH ×2 (08:42→21:00)
[2020-11-25] MEDS: SODIUM CHLORIDE FLUSH 10ML SYR IVF SCH ×2 (08:43→21:24)
[2020-11-25] MEDS: LIDODERM 5% PATCH TD SCH (12:00)
[2020-11-25] MEDS: OXYcodone IR 5MG TABLET PO PRN ×2 (13:38→21:25)
[2020-11-25 14:44] VITALS: BP 108/68
[2020-11-25] MEDS: ONDANSETRON 2MG/ML, 2ML IVPush PRN (17:44)
[2020-11-25] MEDS ORDERED: WARFARIN 2 MG TABLET PO-COUM ONE (18:00)
[2020-11-25 20:30] VITALS: BP 109/72
[2020-11-25] MEDS: ATORVASTATIN 40 MG TABLET PO SCH (21:25)
[2020-11-25] MEDS: TRAZODONE 50MG TABLET PO SCH (23:24)
[2020-11-26 01:35] VITALS: BP 108/56
[2020-11-26] MEDS: ONDANSETRON 2MG/ML, 2ML IVPush PRN ×2 (04:46→21:22)
[2020-11-26] MEDS: OXYcodone IR 5MG TABLET PO PRN (04:46)
[2020-11-26] MEDS: LEVOTHYROXINE 75 MCG TABLET PO SCH (04:51)
[2020-11-26] MEDS: ASPIRIN 81 MG TABLET EC PO SCH (04:51)
[2020-11-26 05:38] LABS: INTERNATIONAL NORMALIZED RATIO 1.99 (0.93-1.1)
[2020-11-26 06:48] VITALS: BP 108/68
[2020-11-26] MEDS: ALBUTEROL-IPRATROPIUM MDI INH INH SCH ×4 (06:50→19:05)
[2020-11-26] MEDS: OXYBUTYNIN CHLORIDE 5 MG TABLET PO SCH ×2 (09:00→21:23)
[2020-11-26] MEDS: SODIUM CHLORIDE FLUSH 10ML SYR IVF SCH ×2 (09:00→21:22)
[2020-11-26] MEDS: FAMOTIDINE 20 MG TABLET PO SCH ×2 (09:00→21:23)
[2020-11-26] MEDS: LACTULOSE 10 GM/15 ML UDC PO SCH ×2 (09:00→21:00)
[2020-11-26] MEDS: SENNA/DOCUSATE TABLET PO SCH (09:00)
[2020-11-26] MEDS: POLYETHYLENE GLYCOL 17 GM PACKET PO SCH ×2 (09:00→21:00)
[2020-11-26] MEDS: SCOPOLAMINE PATCH, 1.5MG PATCH.TD72 TD SCH (11:00)
[2020-11-26] MEDS: CHOLECALCIFEROL 5,000u TAB PO SCH (11:23)
[2020-11-26] MEDS: FERROUS GLUCONATE 324 MG TABLET PO SCH ×2 (11:23→17:00)
[2020-11-26] MEDS: LUBIPROSTONE 24 MCG CAPSULE PO SCH ×2 (11:23→21:00)
[2020-11-26] MEDS: LIDODERM 5% PATCH TD SCH (12:00)
[2020-11-26 13:54] VITALS: BP 120/62
[2020-11-26] MEDS: ONDANSETRON 4 MG TABLET PO PRN (17:29)
[2020-11-26] MEDS ORDERED: WARFARIN 2.5 MG TABLET PO-COUM ONE (18:00)
[2020-11-26 19:44] VITALS: BP 144/96
[2020-11-26] MEDS: TRAZODONE 50MG TABLET PO SCH (21:23)
[2020-11-26] MEDS: ATORVASTATIN 40 MG TABLET PO SCH (21:23)
[2020-11-26] MEDS: LIDODERM REMOVE PATCH NOTE XX SCH ×2 (23:59)
[2020-11-27 00:43] VITALS: BP 111/67
[2020-11-27] MEDS: OXYcodone IR 5MG TABLET PO PRN ×4 (01:35→22:34)
[2020-11-27 05:08] LABS: INTERNATIONAL NORMALIZED RATIO 1.84 (0.93-1.1); PROTHROMBIN TIME 19.5 Seconds (9.6-11.5)
[2020-11-27] MEDS: LEVOTHYROXINE 75 MCG TABLET PO SCH (06:12)
[2020-11-27] MEDS: ONDANSETRON 2MG/ML, 2ML IVPush PRN ×3 (06:12→20:12)
[2020-11-27] MEDS: ASPIRIN 81 MG TABLET EC PO SCH (06:12)
[2020-11-27] MEDS: ALBUTEROL-IPRATROPIUM MDI INH INH SCH ×4 (06:55→18:53)
[2020-11-27 07:29] VITALS: BP 121/78
[2020-11-27] MEDS: POLYETHYLENE GLYCOL 17 GM PACKET PO SCH ×2 (09:00→20:18)
[2020-11-27] MEDS: SENNA/DOCUSATE TABLET PO SCH (09:00)
[2020-11-27] MEDS: LACTULOSE 10 GM/15 ML UDC PO SCH ×2 (09:00→20:17)
[2020-11-27] MEDS: CHOLECALCIFEROL 5,000u TAB PO SCH (09:59)
[2020-11-27] MEDS: FAMOTIDINE 20 MG TABLET PO SCH ×2 (09:59→20:13)
[2020-11-27] MEDS: LUBIPROSTONE 24 MCG CAPSULE PO SCH ×2 (09:59→20:16)
[2020-11-27] MEDS: FERROUS GLUCONATE 324 MG TABLET PO SCH ×2 (09:59→16:24)
[2020-11-27] MEDS: OXYBUTYNIN CHLORIDE 5 MG TABLET PO SCH ×2 (09:59→20:17)
[2020-11-27] MEDS: SODIUM CHLORIDE FLUSH 10ML SYR IVF SCH ×2 (10:00→20:12)
[2020-11-27] MEDS: LIDODERM 5% PATCH TD SCH (12:00)
[2020-11-27 12:51] VITALS: BP 94/66
[2020-11-27 12:55] VITALS: BP 138/64
[2020-11-27] MEDS ORDERED: WARFARIN 3 MG TABLET PO-COUM ONE (18:00)
[2020-11-27] MEDS: TRAZODONE 50MG TABLET PO SCH (20:14)
[2020-11-27] MEDS: ATORVASTATIN 40 MG TABLET PO SCH (20:18)
[2020-11-27] MEDS: SIMETHICONE DROPS 40 MG/0.6 ML BOTTLE PO PRN (20:21)
[2020-11-27 20:45] VITALS: BP 109/55
[2020-11-27] MEDS: LIDODERM REMOVE PATCH NOTE XX SCH (22:42)
[2020-11-28 00:14] VITALS: BP 134/65
[2020-11-28] MEDS: ONDANSETRON 2MG/ML, 2ML IVPush PRN ×3 (02:03→15:18)
[2020-11-28] MEDS: ASPIRIN 81 MG TABLET EC PO SCH (04:26)
[2020-11-28] MEDS: LEVOTHYROXINE 75 MCG TABLET PO SCH (04:26)
[2020-11-28] MEDS: OXYcodone IR 5MG TABLET PO PRN ×3 (04:26→17:51)
[2020-11-28] MEDS: ALBUTEROL-IPRATROPIUM MDI INH INH SCH ×4 (06:00→19:30)
[2020-11-28 07:48] LABS: BASOPHILS % (AUTO) 1 % (0-1); EOSINOPHILS % (AUTO) 2 % (1-7); LYMPHOCYTES % (AUTO) 41 % (22-44); MEAN CORPUSCULAR HEMOGLOBIN 29.8 pg (27.5-34.5); MEAN CORPUSCULAR HGB CONC 32.2 g/dL (33.2-36.2); MEAN PLATELET VOLUME 8.7 fL (7.4-10.4); MONOCYTES % (AUTO) 18 % (2-9); NEUTROPHILS % (AUTO) 38 % (42-75); PLATELET COUNT 175 x10^3/uL (130-400); RED BLOOD COUNT 3.21 x10^6/uL (4.38-5.82); RED CELL DISTRIBUTION WIDTH 24.9 % (9.4-14.8)
[2020-11-28 07:57] LABS: INTERNATIONAL NORMALIZED RATIO 1.7 (0.93-1.1)
[2020-11-28 08:11] LABS: MD SCAN
[2020-11-28 08:52] LABS: CALCIUM 8.6 mg/dL (8.5-10.1); CREATININE 0.83 mg/dL (0.7-1.3)
[2020-11-28] MEDS: LACTULOSE 10 GM/15 ML UDC PO SCH ×2 (09:00→21:17)
[2020-11-28] MEDS: POLYETHYLENE GLYCOL 17 GM PACKET PO SCH ×2 (09:00→21:00)
[2020-11-28] MEDS: SENNA/DOCUSATE TABLET PO SCH (09:00)
[2020-11-28 09:07] LABS: ANION GAP 3 mmol/L (5-15); CHLORIDE 100 mmol/L (98-107)
[2020-11-28 09:14] VITALS: BP 102/61
[2020-11-28] MEDS: LUBIPROSTONE 24 MCG CAPSULE PO SCH ×2 (09:53→21:12)
[2020-11-28] MEDS: SODIUM CHLORIDE FLUSH 10ML SYR IVF SCH ×2 (09:54→21:18)
[2020-11-28] MEDS: FERROUS GLUCONATE 324 MG TABLET PO SCH ×2 (09:54→17:50)
[2020-11-28] MEDS: FAMOTIDINE 20 MG TABLET PO SCH ×2 (09:54→21:14)
[2020-11-28] MEDS: CHOLECALCIFEROL 5,000u TAB PO SCH (09:54)
[2020-11-28] MEDS: OXYBUTYNIN CHLORIDE 5 MG TABLET PO SCH ×2 (09:54→21:13)
[2020-11-28] MEDS: SIMETHICONE DROPS 40 MG/0.6 ML BOTTLE PO PRN (09:55)
[2020-11-28 13:04] VITALS: BP 115/76
[2020-11-28] MEDS: LIDODERM 5% PATCH TD SCH (13:38)
[2020-11-28] MEDS ORDERED: WARFARIN 5 MG TABLET PO-COUM ONE (18:00)
[2020-11-28 19:34] VITALS: BP 113/64
[2020-11-28] MEDS: TRAZODONE 50MG TABLET PO SCH (21:13)
[2020-11-28] MEDS: ATORVASTATIN 40 MG TABLET PO SCH (21:13)
[2020-11-28] MEDS: LIDODERM REMOVE PATCH NOTE XX SCH (23:38)
[2020-11-29 00:03] VITALS: BP 119/67
[2020-11-29] MEDS: OXYcodone IR 5MG TABLET PO PRN ×5 (00:12→22:34)
[2020-11-29] MEDS: ONDANSETRON 2MG/ML, 2ML IVPush PRN ×3 (03:55→22:34)
[2020-11-29 05:07] LABS: INTERNATIONAL NORMALIZED RATIO 1.83 (0.93-1.1); PROTHROMBIN TIME 19.3 Seconds (9.6-11.5)
[2020-11-29] MEDS: ALBUTEROL-IPRATROPIUM MDI INH INH SCH ×4 (06:00→20:02)
[2020-11-29] MEDS: LEVOTHYROXINE 75 MCG TABLET PO SCH (06:01)
[2020-11-29] MEDS: ASPIRIN 81 MG TABLET EC PO SCH (06:01)
[2020-11-29 07:09] VITALS: BP 125/68
[2020-11-29] MEDS: LACTULOSE 10 GM/15 ML UDC PO SCH ×2 (08:48→21:13)
[2020-11-29] MEDS: OXYBUTYNIN CHLORIDE 5 MG TABLET PO SCH ×2 (08:48→21:10)
[2020-11-29] MEDS: SENNA/DOCUSATE TABLET PO SCH (08:48)
[2020-11-29] MEDS: FAMOTIDINE 20 MG TABLET PO SCH ×2 (08:48→21:10)
[2020-11-29] MEDS: POLYETHYLENE GLYCOL 17 GM PACKET PO SCH ×2 (08:48→21:14)
[2020-11-29] MEDS: LUBIPROSTONE 24 MCG CAPSULE PO SCH ×2 (08:48→21:13)
[2020-11-29] MEDS: CHOLECALCIFEROL 5,000u TAB PO SCH (08:48)
[2020-11-29] MEDS: FERROUS GLUCONATE 324 MG TABLET PO SCH ×2 (08:48→17:27)
[2020-11-29] MEDS: SODIUM CHLORIDE FLUSH 10ML SYR IVF SCH ×2 (09:00→21:13)
[2020-11-29] MEDS: SCOPOLAMINE PATCH, 1.5MG PATCH.TD72 TD SCH (11:00)
[2020-11-29] MEDS: LIDODERM 5% PATCH TD SCH (11:58)
[2020-11-29 12:58] VITALS: BP 128/89
[2020-11-29] MEDS ORDERED: WARFARIN 3 MG TABLET PO-COUM ONE (18:00)
[2020-11-29 20:20] VITALS: BP 105/61
[2020-11-29] MEDS: ATORVASTATIN 40 MG TABLET PO SCH (21:09)
[2020-11-29] MEDS: TRAZODONE 50MG TABLET PO SCH (21:10)
[2020-11-29 22:32] VITALS: BP 114/73
[2020-11-30] MEDS: LIDODERM REMOVE PATCH NOTE XX SCH
[2020-11-30 00:30] VITALS: BP 138/59
[2020-11-30] MEDS: MELATONIN 5 MG TABLET PO PRN (02:29)
[2020-11-30] MEDS: METHOCARBAMOL 500 MG TABLET PO PRN ×2 (03:50→13:47)
[2020-11-30] MEDS: LEVOTHYROXINE 75 MCG TABLET PO SCH (05:27)
[2020-11-30] MEDS: ASPIRIN 81 MG TABLET EC PO SCH (05:27)
[2020-11-30 05:36] VITALS: BP 113/48
[2020-11-30] MEDS: ONDANSETRON 2MG/ML, 2ML IVPush PRN ×3 (05:52→16:39)
[2020-11-30] MEDS: OXYcodone IR 5MG TABLET PO PRN ×2 (05:52→12:16)
[2020-11-30 05:55] LABS: INTERNATIONAL NORMALIZED RATIO 2.13 (0.93-1.1); PROTHROMBIN TIME 22.5 Seconds (9.6-11.5)
[2020-11-30] MEDS: ALBUTEROL-IPRATROPIUM MDI INH INH SCH ×4 (07:36→20:19)
[2020-11-30] MEDS: LACTULOSE 10 GM/15 ML UDC PO SCH ×2 (07:56→22:05)
[2020-11-30] MEDS: POLYETHYLENE GLYCOL 17 GM PACKET PO SCH ×2 (07:56→22:05)
[2020-11-30] MEDS: OXYBUTYNIN CHLORIDE 5 MG TABLET PO SCH ×2 (07:57→21:43)
[2020-11-30] MEDS: FERROUS GLUCONATE 324 MG TABLET PO SCH ×2 (07:57→16:27)
[2020-11-30] MEDS: CHOLECALCIFEROL 5,000u TAB PO SCH (07:58)
[2020-11-30] MEDS: FAMOTIDINE 20 MG TABLET PO SCH ×2 (07:58→21:43)
[2020-11-30] MEDS: SENNA/DOCUSATE TABLET PO SCH (07:59)
[2020-11-30] MEDS: LUBIPROSTONE 24 MCG CAPSULE PO SCH ×2 (07:59→22:05)
[2020-11-30] MEDS: SODIUM CHLORIDE FLUSH 10ML SYR IVF SCH ×2 (08:02→22:05)
[2020-11-30 08:21] VITALS: BP 115/68
[2020-11-30] MEDS: LIDODERM 5% PATCH TD SCH (12:08)
[2020-11-30 15:19] VITALS: BP 122/62
[2020-11-30] MEDS ORDERED: WARFARIN 2.5 MG TABLET PO-COUM ONE (18:00)
[2020-11-30 21:13] VITALS: BP 102/55
[2020-11-30] MEDS: ATORVASTATIN 40 MG TABLET PO SCH (21:43)
[2020-11-30] MEDS: TRAZODONE 50MG TABLET PO SCH (21:43)
[2020-11-30 21:55] VITALS: BP 136/63
[2020-12-01 01:14] VITALS: BP 134/61
[2020-12-01] MEDS: LIDODERM REMOVE PATCH NOTE XX SCH ×2 (01:14→23:14)
[2020-12-01] MEDS: OXYcodone IR 5MG TABLET PO PRN ×3 (01:21→15:51)
[2020-12-01] MEDS: METHOCARBAMOL 500 MG TABLET PO PRN (04:09)
[2020-12-01] MEDS: MELATONIN 5 MG TABLET PO PRN ×2 (04:09→21:55)
[2020-12-01 05:18] LABS: INTERNATIONAL NORMALIZED RATIO 2.4 (0.93-1.1); PROTHROMBIN TIME 25.2 Seconds (9.6-11.5)
[2020-12-01] MEDS: ASPIRIN 81 MG TABLET EC PO SCH (05:23)
[2020-12-01] MEDS: LEVOTHYROXINE 75 MCG TABLET PO SCH (05:24)
[2020-12-01] MEDS: ALBUTEROL-IPRATROPIUM MDI INH INH SCH ×4 (06:00→20:48)
[2020-12-01] MEDS: SIMETHICONE DROPS 40 MG/0.6 ML BOTTLE PO PRN (09:40)
[2020-12-01] MEDS: CHOLECALCIFEROL 5,000u TAB PO SCH (09:41)
[2020-12-01] MEDS: FERROUS GLUCONATE 324 MG TABLET PO SCH ×2 (09:41→17:50)
[2020-12-01] MEDS: FAMOTIDINE 20 MG TABLET PO SCH ×2 (09:41→21:14)
[2020-12-01] MEDS: OXYBUTYNIN CHLORIDE 5 MG TABLET PO SCH ×2 (09:41→21:17)
[2020-12-01] MEDS: LUBIPROSTONE 24 MCG CAPSULE PO SCH ×2 (09:42→21:17)
[2020-12-01] MEDS: LACTULOSE 10 GM/15 ML UDC PO SCH ×2 (09:42→21:18)
[2020-12-01] MEDS: POLYETHYLENE GLYCOL 17 GM PACKET PO SCH ×2 (09:42→21:18)
[2020-12-01] MEDS: ONDANSETRON 2MG/ML, 2ML IVPush PRN ×3 (09:43→22:57)
[2020-12-01] MEDS: SENNA/DOCUSATE TABLET PO SCH (09:43)
[2020-12-01] MEDS: SODIUM CHLORIDE FLUSH 10ML SYR IVF SCH ×2 (09:43→21:17)
[2020-12-01] MEDS: LIDODERM 5% PATCH TD SCH (12:33)
[2020-12-01 13:33] VITALS: BP 102/53
[2020-12-01 15:42] VITALS: BP 139/77
[2020-12-01] MEDS ORDERED: WARFARIN 2.5 MG TABLET PO-COUM ONE (18:00)
[2020-12-01 20:02] VITALS: BP 128/50
[2020-12-01] MEDS: ATORVASTATIN 40 MG TABLET PO SCH (21:14)
[2020-12-01] MEDS: TRAZODONE 50MG TABLET PO SCH (21:15)
[2020-12-01 23:08] VITALS: BP 88/50
[2020-12-01 23:49] VITALS: BP 105/61
[2020-12-02 01:01] VITALS: BP 146/70
[2020-12-02] MEDS: OXYcodone IR 5MG TABLET PO PRN ×4 (01:06→20:48)
[2020-12-02] MEDS: ASPIRIN 81 MG TABLET EC PO SCH (05:03)
[2020-12-02] MEDS: LEVOTHYROXINE 75 MCG TABLET PO SCH (05:04)
[2020-12-02 05:05] LABS: INTERNATIONAL NORMALIZED RATIO 2.49 (0.93-1.1); PROTHROMBIN TIME 26.2 Seconds (9.6-11.5)
[2020-12-02 05:26] VITALS: BP 124/84
[2020-12-02] MEDS: ALBUTEROL-IPRATROPIUM MDI INH INH SCH ×4 (06:00→20:23)
[2020-12-02 07:50] VITALS: BP 99/64
[2020-12-02] MEDS: ONDANSETRON 2MG/ML, 2ML IVPush PRN ×3 (09:18→20:46)
[2020-12-02] MEDS: LACTULOSE 10 GM/15 ML UDC PO SCH ×2 (09:19→21:00)
[2020-12-02] MEDS: FAMOTIDINE 20 MG TABLET PO SCH ×2 (09:19→21:00)
[2020-12-02] MEDS: CHOLECALCIFEROL 5,000u TAB PO SCH (09:19)
[2020-12-02] MEDS: LUBIPROSTONE 24 MCG CAPSULE PO SCH ×2 (09:19→21:00)
[2020-12-02] MEDS: OXYBUTYNIN CHLORIDE 5 MG TABLET PO SCH ×2 (09:19→21:00)
[2020-12-02] MEDS: FERROUS GLUCONATE 324 MG TABLET PO SCH ×2 (09:19→17:48)
[2020-12-02] MEDS: POLYETHYLENE GLYCOL 17 GM PACKET PO SCH ×2 (09:20→21:00)
[2020-12-02] MEDS: SODIUM CHLORIDE FLUSH 10ML SYR IVF SCH ×2 (09:20→21:00)
[2020-12-02] MEDS: SENNA/DOCUSATE TABLET PO SCH (09:20)
[2020-12-02] MEDS: LIDODERM 5% PATCH TD SCH (12:10)
[2020-12-02] MEDS: SCOPOLAMINE PATCH, 1.5MG PATCH.TD72 TD SCH (12:15)
[2020-12-02 14:00] VITALS: BP 110/77
[2020-12-02] MEDS ORDERED: WARFARIN 2 MG TABLET PO-COUM ONE (18:00)
[2020-12-02 19:32] VITALS: BP 148/78
[2020-12-02] MEDS: ATORVASTATIN 40 MG TABLET PO SCH (20:45)
[2020-12-02] MEDS: TRAZODONE 50MG TABLET PO SCH (20:46)
[2020-12-03 02:06] VITALS: BP 110/70
[2020-12-03] MEDS: LEVOTHYROXINE 75 MCG TABLET PO SCH (05:22)
[2020-12-03] MEDS: ASPIRIN 81 MG TABLET EC PO SCH (05:22)
[2020-12-03] MEDS: OXYcodone IR 5MG TABLET PO PRN ×3 (05:23→18:35)
[2020-12-03 06:04] LABS: INTERNATIONAL NORMALIZED RATIO 2.65 (0.93-1.1); PROTHROMBIN TIME 27.8 Seconds (9.6-11.5)
[2020-12-03] MEDS: ALBUTEROL-IPRATROPIUM MDI INH INH SCH ×2 (07:06→20:39)
[2020-12-03 07:59] VITALS: BP 112/63
[2020-12-03] MEDS: LACTULOSE 10 GM/15 ML UDC PO SCH ×2 (09:00→21:00)
[2020-12-03] MEDS: SENNA/DOCUSATE TABLET PO SCH (09:00)
[2020-12-03] MEDS: POLYETHYLENE GLYCOL 17 GM PACKET PO SCH ×2 (09:00→21:00)
[2020-12-03] MEDS: FERROUS GLUCONATE 324 MG TABLET PO SCH ×2 (10:34→17:23)
[2020-12-03] MEDS: FAMOTIDINE 20 MG TABLET PO SCH ×2 (10:34→21:57)
[2020-12-03] MEDS: CHOLECALCIFEROL 5,000u TAB PO SCH (10:34)
[2020-12-03] MEDS: OXYBUTYNIN CHLORIDE 5 MG TABLET PO SCH ×2 (10:34→21:57)
[2020-12-03] MEDS: LUBIPROSTONE 24 MCG CAPSULE PO SCH ×2 (10:34→21:00)
[2020-12-03] MEDS: SODIUM CHLORIDE FLUSH 10ML SYR IVF SCH ×2 (10:35→21:00)
[2020-12-03] MEDS: LIDODERM 5% PATCH TD SCH (11:52)
[2020-12-03 12:36] VITALS: BP 118/62
[2020-12-03] MEDS: ONDANSETRON 2MG/ML, 2ML IVPush PRN ×2 (17:23→22:56)
[2020-12-03] MEDS ORDERED: WARFARIN 2 MG TABLET PO-COUM ONE (18:00)
[2020-12-03 18:24] VITALS: BP 137/80
[2020-12-03] MEDS: TRAZODONE 50MG TABLET PO SCH (21:57)
[2020-12-03] MEDS: ATORVASTATIN 40 MG TABLET PO SCH (21:57)
[2020-12-03] MEDS: LIDODERM REMOVE PATCH NOTE XX SCH ×3 (23:17→23:18)
[2020-12-04 00:18] VITALS: BP 150/64
[2020-12-04] MEDS: OXYcodone IR 5MG TABLET PO PRN ×3 (04:26→17:54)
[2020-12-04] MEDS: ASPIRIN 81 MG TABLET EC PO SCH (05:24)
[2020-12-04] MEDS: LEVOTHYROXINE 75 MCG TABLET PO SCH (05:24)
[2020-12-04 05:57] LABS: INTERNATIONAL NORMALIZED RATIO 2.73 (0.93-1.1); PROTHROMBIN TIME 28.6 Seconds (9.6-11.5)
[2020-12-04 06:31] VITALS: BP 123/68
[2020-12-04] MEDS: POLYETHYLENE GLYCOL 17 GM PACKET PO SCH ×2 (09:00→20:40)
[2020-12-04] MEDS ORDERED: CYANOCOBALAMIN 1,000 MCG/ML, 1ML IM SCH (09:00)
[2020-12-04] MEDS: LACTULOSE 10 GM/15 ML UDC PO SCH ×2 (09:00→20:40)
[2020-12-04] MEDS: SODIUM CHLORIDE FLUSH 10ML SYR IVF SCH ×2 (09:00→20:41)
[2020-12-04] MEDS: LUBIPROSTONE 24 MCG CAPSULE PO SCH ×2 (09:00→20:40)
[2020-12-04] MEDS: SENNA/DOCUSATE TABLET PO SCH (09:00)
[2020-12-04] MEDS: CHOLECALCIFEROL 5,000u TAB PO SCH (09:18)
[2020-12-04] MEDS: OXYBUTYNIN CHLORIDE 5 MG TABLET PO SCH ×2 (09:18→20:37)
[2020-12-04] MEDS: FERROUS GLUCONATE 324 MG TABLET PO SCH ×2 (09:19→17:53)
[2020-12-04] MEDS: FAMOTIDINE 20 MG TABLET PO SCH ×2 (09:19→20:37)
[2020-12-04] MEDS: ALBUTEROL-IPRATROPIUM MDI INH INH SCH ×2 (09:20→19:43)
[2020-12-04] MEDS: SIMETHICONE DROPS 40 MG/0.6 ML BOTTLE PO PRN ×2 (09:20→20:42)
[2020-12-04] MEDS: LIDODERM 5% PATCH TD SCH (10:51)
[2020-12-04] MEDS ORDERED: WARFARIN 2 MG TABLET PO-COUM ONE (18:00)
[2020-12-04 19:50] VITALS: BP 117/56
[2020-12-04] MEDS: ATORVASTATIN 40 MG TABLET PO SCH ×2 (20:37→20:40)
[2020-12-04] MEDS: TRAZODONE 50MG TABLET PO SCH (20:37)
[2020-12-04] MEDS: ONDANSETRON 2MG/ML, 2ML IVPush PRN (21:23)
[2020-12-04] MEDS: LIDODERM REMOVE PATCH NOTE XX SCH (23:50)
[2020-12-05] MEDS: OXYcodone IR 5MG TABLET PO PRN ×4 (00:13→21:01)
[2020-12-05 00:28] VITALS: BP 150/75
[2020-12-05] MEDS: ONDANSETRON 2MG/ML, 2ML IVPush PRN ×2 (03:51→16:07)
[2020-12-05 05:23] LABS: INTERNATIONAL NORMALIZED RATIO 2.46 (0.93-1.1); PROTHROMBIN TIME 25.9 Seconds (9.6-11.5)
[2020-12-05] MEDS: ASPIRIN 81 MG TABLET EC PO SCH (06:32)
[2020-12-05] MEDS: LEVOTHYROXINE 75 MCG TABLET PO SCH (06:32)
[2020-12-05 07:50] VITALS: BP 109/71
[2020-12-05] MEDS: POLYETHYLENE GLYCOL 17 GM PACKET PO SCH ×2 (09:00→20:58)
[2020-12-05] MEDS: SODIUM CHLORIDE FLUSH 10ML SYR IVF SCH ×2 (09:00→21:01)
[2020-12-05] MEDS: LACTULOSE 10 GM/15 ML UDC PO SCH ×2 (10:24→20:58)
[2020-12-05] MEDS: LUBIPROSTONE 24 MCG CAPSULE PO SCH ×2 (10:24→20:57)
[2020-12-05] MEDS: SENNA/DOCUSATE TABLET PO SCH (10:24)
[2020-12-05] MEDS: FERROUS GLUCONATE 324 MG TABLET PO SCH ×2 (10:25→16:07)
[2020-12-05] MEDS: OXYBUTYNIN CHLORIDE 5 MG TABLET PO SCH ×2 (10:25→20:57)
[2020-12-05] MEDS: FAMOTIDINE 20 MG TABLET PO SCH ×2 (10:25→20:57)
[2020-12-05] MEDS: CHOLECALCIFEROL 5,000u TAB PO SCH (10:25)
[2020-12-05] MEDS: SCOPOLAMINE PATCH, 1.5MG PATCH.TD72 TD SCH (10:32)
[2020-12-05] MEDS: LIDODERM 5% PATCH TD SCH (11:39)
[2020-12-05] MEDS ORDERED: WARFARIN 2.5 MG TABLET PO-COUM ONE (18:00)
[2020-12-05 18:46] VITALS: BP 146/83
[2020-12-05] MEDS: ATORVASTATIN 40 MG TABLET PO SCH (20:57)
[2020-12-05] MEDS: TRAZODONE 50MG TABLET PO SCH (21:02)
[2020-12-06] MEDS: ONDANSETRON 2MG/ML, 2ML IVPush PRN ×4 (00:30→13:28)
[2020-12-06] MEDS: LIDODERM REMOVE PATCH NOTE XX SCH (00:33)
[2020-12-06 00:41] VITALS: BP 113/69
[2020-12-06] MEDS: ALBUTEROL-IPRATROPIUM MDI INH INH PRN (01:21)
[2020-12-06] MEDS: LEVOTHYROXINE 75 MCG TABLET PO SCH (05:29)
[2020-12-06] MEDS: ASPIRIN 81 MG TABLET EC PO SCH (05:29)
[2020-12-06] MEDS: OXYcodone IR 5MG TABLET PO PRN ×3 (05:32→22:51)
[2020-12-06 06:15] LABS: INTERNATIONAL NORMALIZED RATIO 2.39 (0.93-1.1); PROTHROMBIN TIME 25.1 Seconds (9.6-11.5)
[2020-12-06 08:12] VITALS: BP 122/69
[2020-12-06] MEDS: LUBIPROSTONE 24 MCG CAPSULE PO SCH ×2 (08:53→21:00)
[2020-12-06] MEDS: FERROUS GLUCONATE 324 MG TABLET PO SCH ×2 (08:53→17:58)
[2020-12-06] MEDS: FAMOTIDINE 20 MG TABLET PO SCH ×2 (08:53→21:19)
[2020-12-06] MEDS: CHOLECALCIFEROL 5,000u TAB PO SCH (08:53)
[2020-12-06] MEDS: OXYBUTYNIN CHLORIDE 5 MG TABLET PO SCH ×2 (08:54→21:19)
[2020-12-06] MEDS: SENNA/DOCUSATE TABLET PO SCH (08:58)
[2020-12-06] MEDS: LACTULOSE 10 GM/15 ML UDC PO SCH ×2 (09:00→21:00)
[2020-12-06] MEDS: SODIUM CHLORIDE FLUSH 10ML SYR IVF SCH ×2 (09:00→21:00)
[2020-12-06] MEDS: POLYETHYLENE GLYCOL 17 GM PACKET PO SCH ×2 (09:00→21:00)
[2020-12-06] MEDS: LIDODERM 5% PATCH TD SCH (12:00)
[2020-12-06] MEDS ORDERED: WARFARIN 2.5 MG TABLET PO-COUM ONE (18:00)
[2020-12-06 19:49] VITALS: BP 110/74
[2020-12-06] MEDS: TRAZODONE 50MG TABLET PO SCH (21:19)
[2020-12-06] MEDS: ATORVASTATIN 40 MG TABLET PO SCH (21:20)
[2020-12-06] MEDS: SIMETHICONE DROPS 40 MG/0.6 ML BOTTLE PO PRN (21:21)
[2020-12-07 01:34] VITALS: BP 133/69
[2020-12-07 05:48] LABS: INTERNATIONAL NORMALIZED RATIO 2.39 (0.93-1.1); PROTHROMBIN TIME 25.1 Seconds (9.6-11.5)
[2020-12-07] MEDS: ASPIRIN 81 MG TABLET EC PO SCH (06:35)
[2020-12-07] MEDS: OXYcodone IR 5MG TABLET PO PRN ×3 (06:36→21:17)
[2020-12-07] MEDS: LEVOTHYROXINE 75 MCG TABLET PO SCH (06:36)
[2020-12-07 07:33] VITALS: BP 115/74
[2020-12-07] MEDS: LACTULOSE 10 GM/15 ML UDC PO SCH ×2 (09:00→21:18)
[2020-12-07] MEDS: SENNA/DOCUSATE TABLET PO SCH (09:00)
[2020-12-07] MEDS: SODIUM CHLORIDE FLUSH 10ML SYR IVF SCH ×2 (09:00→21:16)
[2020-12-07] MEDS: POLYETHYLENE GLYCOL 17 GM PACKET PO SCH ×2 (09:00→21:18)
[2020-12-07] MEDS: LUBIPROSTONE 24 MCG CAPSULE PO SCH ×2 (10:06→21:16)
[2020-12-07] MEDS: FERROUS GLUCONATE 324 MG TABLET PO SCH ×2 (10:07→17:00)
[2020-12-07] MEDS: FAMOTIDINE 20 MG TABLET PO SCH ×2 (10:07→21:16)
[2020-12-07] MEDS: CHOLECALCIFEROL 5,000u TAB PO SCH (10:07)
[2020-12-07] MEDS: OXYBUTYNIN CHLORIDE 5 MG TABLET PO SCH ×2 (10:07→21:16)
[2020-12-07] MEDS: ALBUTEROL-IPRATROPIUM MDI INH INH PRN ×2 (11:13→23:56)
[2020-12-07] MEDS: LIDODERM 5% PATCH TD SCH (12:15)
[2020-12-07 13:32] VITALS: BP 120/74
[2020-12-07] MEDS ORDERED: WARFARIN 2.5 MG TABLET PO-COUM ONE (18:00)
[2020-12-07] MEDS: MELATONIN 5 MG TABLET PO PRN (18:06)
[2020-12-07 20:54] VITALS: BP 119/72
[2020-12-07] MEDS: TRAZODONE 50MG TABLET PO SCH (21:16)
[2020-12-07] MEDS: ATORVASTATIN 40 MG TABLET PO SCH (21:16)
[2020-12-07] MEDS: LIDODERM REMOVE PATCH NOTE XX SCH ×2 (23:59)
[2020-12-08] MEDS: ONDANSETRON 2MG/ML, 2ML IVPush PRN ×4 (00:06→21:44)
[2020-12-08 00:53] VITALS: BP 119/72
[2020-12-08] MEDS: OXYcodone IR 5MG TABLET PO PRN ×3 (03:24→16:57)
[2020-12-08] MEDS: MELATONIN 5 MG TABLET PO PRN (03:30)
[2020-12-08 05:56] LABS: INTERNATIONAL NORMALIZED RATIO 2.83 (0.93-1.1); PROTHROMBIN TIME 29.7 Seconds (9.6-11.5)
[2020-12-08] MEDS: LEVOTHYROXINE 75 MCG TABLET PO SCH (06:16)
[2020-12-08] MEDS: ASPIRIN 81 MG TABLET EC PO SCH (06:17)
[2020-12-08 07:02] VITALS: BP 104/69
[2020-12-08] MEDS: CHOLECALCIFEROL 5,000u TAB PO SCH (08:30)
[2020-12-08] MEDS: FERROUS GLUCONATE 324 MG TABLET PO SCH ×2 (08:30→16:55)
[2020-12-08] MEDS: OXYBUTYNIN CHLORIDE 5 MG TABLET PO SCH ×2 (08:31→21:32)
[2020-12-08] MEDS: FAMOTIDINE 20 MG TABLET PO SCH ×2 (08:31→21:30)
[2020-12-08] MEDS: LUBIPROSTONE 24 MCG CAPSULE PO SCH ×2 (08:33→21:00)
[2020-12-08] MEDS: SENNA/DOCUSATE TABLET PO SCH (08:34)
[2020-12-08] MEDS: LACTULOSE 10 GM/15 ML UDC PO SCH ×2 (08:34→21:00)
[2020-12-08] MEDS: POLYETHYLENE GLYCOL 17 GM PACKET PO SCH ×2 (08:34→21:00)
[2020-12-08] MEDS: SODIUM CHLORIDE FLUSH 10ML SYR IVF SCH ×2 (09:00→21:00)
[2020-12-08] MEDS: METHOCARBAMOL 500 MG TABLET PO PRN ×2 (10:17→21:45)
[2020-12-08] MEDS: LIDODERM 5% PATCH TD SCH (11:17)
[2020-12-08] MEDS: SCOPOLAMINE PATCH, 1.5MG PATCH.TD72 TD SCH (11:17)
[2020-12-08 14:01] VITALS: BP 112/72
[2020-12-08] MEDS: ALBUTEROL-IPRATROPIUM MDI INH INH PRN (14:47)
[2020-12-08] MEDS ORDERED: WARFARIN 2 MG TABLET PO-COUM ONE (18:00)
[2020-12-08] MEDS: TRAZODONE 50MG TABLET PO SCH (21:31)
[2020-12-08] MEDS: ATORVASTATIN 40 MG TABLET PO SCH (21:32)
[2020-12-08 21:33] VITALS: BP 112/74
[2020-12-08] MEDS: LIDODERM REMOVE PATCH NOTE XX SCH (23:43)
[2020-12-09] MEDS: OXYcodone IR 5MG TABLET PO PRN ×4 (00:18→22:12)
[2020-12-09 01:23] VITALS: BP 102/66
[2020-12-09] MEDS: MELATONIN 5 MG TABLET PO PRN ×2 (03:32→22:11)
[2020-12-09 05:09] LABS: INTERNATIONAL NORMALIZED RATIO 3.08 (0.93-1.1); PROTHROMBIN TIME 32.2 Seconds (9.6-11.5)
[2020-12-09] MEDS: LEVOTHYROXINE 75 MCG TABLET PO SCH (05:49)
[2020-12-09] MEDS: ASPIRIN 81 MG TABLET EC PO SCH (05:49)
[2020-12-09 06:50] VITALS: BP 111/55
[2020-12-09] MEDS: FERROUS GLUCONATE 324 MG TABLET PO SCH ×2 (07:58→16:38)
[2020-12-09] MEDS: LUBIPROSTONE 24 MCG CAPSULE PO SCH ×2 (07:58→22:21)
[2020-12-09] MEDS: METHOCARBAMOL 500 MG TABLET PO PRN (07:58)
[2020-12-09] MEDS: ONDANSETRON 2MG/ML, 2ML IVPush PRN ×3 (07:58→22:12)
[2020-12-09] MEDS: FAMOTIDINE 20 MG TABLET PO SCH ×2 (07:59→22:11)
[2020-12-09] MEDS: CHOLECALCIFEROL 5,000u TAB PO SCH (07:59)
[2020-12-09] MEDS: OXYBUTYNIN CHLORIDE 5 MG TABLET PO SCH ×2 (08:01→22:21)
[2020-12-09] MEDS: SENNA/DOCUSATE TABLET PO SCH (08:02)
[2020-12-09] MEDS: POLYETHYLENE GLYCOL 17 GM PACKET PO SCH ×2 (08:02→21:00)
[2020-12-09] MEDS: LACTULOSE 10 GM/15 ML UDC PO SCH ×2 (08:02→21:00)
[2020-12-09] MEDS: SODIUM CHLORIDE FLUSH 10ML SYR IVF SCH ×2 (09:00→21:00)
[2020-12-09] MEDS: LIDODERM 5% PATCH TD SCH (11:45)
[2020-12-09 12:59] VITALS: BP 113/73
[2020-12-09] MEDS ORDERED: WARFARIN 2 MG TABLET PO-COUM ONE (18:00)
[2020-12-09 19:24] VITALS: BP 117/73
[2020-12-09] MEDS: ATORVASTATIN 40 MG TABLET PO SCH (22:11)
[2020-12-09] MEDS: TRAZODONE 50MG TABLET PO SCH (22:11)
[2020-12-09] MEDS: LIDODERM REMOVE PATCH NOTE XX SCH (23:01)
[2020-12-10] MEDS: METHOCARBAMOL 500 MG TABLET PO PRN (01:04)
[2020-12-10 02:29] VITALS: BP 119/69
[2020-12-10] MEDS: LEVOTHYROXINE 75 MCG TABLET PO SCH (05:47)
[2020-12-10] MEDS: ASPIRIN 81 MG TABLET EC PO SCH (05:47)
[2020-12-10] MEDS: OXYcodone IR 5MG TABLET PO PRN ×3 (05:49→22:37)
[2020-12-10 07:33] LABS: INTERNATIONAL NORMALIZED RATIO 3.27 (0.93-1.1); PROTHROMBIN TIME 34.2 Seconds (9.6-11.5)
[2020-12-10] MEDS: FERROUS GLUCONATE 324 MG TABLET PO SCH ×3 (08:00→17:24)
[2020-12-10] MEDS: SENNA/DOCUSATE TABLET PO SCH (08:12)
[2020-12-10] MEDS: POLYETHYLENE GLYCOL 17 GM PACKET PO SCH ×2 (08:12→22:10)
[2020-12-10] MEDS: LACTULOSE 10 GM/15 ML UDC PO SCH ×2 (08:12→22:10)
[2020-12-10] MEDS: LUBIPROSTONE 24 MCG CAPSULE PO SCH ×2 (08:12→22:09)
[2020-12-10] MEDS: CHOLECALCIFEROL 5,000u TAB PO SCH (08:17)
[2020-12-10] MEDS: OXYBUTYNIN CHLORIDE 5 MG TABLET PO SCH ×2 (08:17→22:27)
[2020-12-10] MEDS: SODIUM CHLORIDE FLUSH 10ML SYR IVF SCH ×2 (08:17→22:37)
[2020-12-10] MEDS: FAMOTIDINE 20 MG TABLET PO SCH ×3 (08:17→22:31)
[2020-12-10] MEDS: ONDANSETRON 2MG/ML, 2ML IVPush PRN ×3 (08:23→20:22)
[2020-12-10] MEDS: SIMETHICONE DROPS 40 MG/0.6 ML BOTTLE PO PRN ×2 (08:33→08:37)
[2020-12-10 10:36] VITALS: BP 97/67
[2020-12-10] MEDS: LIDODERM 5% PATCH TD SCH (12:00)
[2020-12-10 14:00] VITALS: BP 133/79
[2020-12-10] MEDS ORDERED: WARFARIN 3 MG TABLET PO-COUM ONE (18:00)
[2020-12-10] MEDS: MELATONIN 5 MG TABLET PO PRN (20:21)
[2020-12-10 20:28] VITALS: BP 124/87
[2020-12-10 22:21] VITALS: BP 121/56
[2020-12-10] MEDS: TRAZODONE 50MG TABLET PO SCH ×2 (22:26→23:44)
[2020-12-10] MEDS: ATORVASTATIN 40 MG TABLET PO SCH (22:36)
[2020-12-10] MEDS: ALBUTEROL-IPRATROPIUM MDI INH INH PRN (23:03)
[2020-12-11] MEDS: LIDODERM REMOVE PATCH NOTE XX SCH (01:01)
[2020-12-11 01:59] VITALS: BP 123/60
[2020-12-11] MEDS: ONDANSETRON 2MG/ML, 2ML IVPush PRN ×3 (02:04→20:16)
[2020-12-11] MEDS: METHOCARBAMOL 500 MG TABLET PO PRN ×2 (02:04→17:09)
[2020-12-11 03:57] VITALS: BP 118/76
[2020-12-11] MEDS: ASPIRIN 81 MG TABLET EC PO SCH (05:43)
[2020-12-11] MEDS: LEVOTHYROXINE 75 MCG TABLET PO SCH (05:43)
[2020-12-11 05:45] VITALS: BP 121/77
[2020-12-11] MEDS: OXYcodone IR 5MG TABLET PO PRN ×3 (05:53→20:05)
[2020-12-11 06:05] LABS: INTERNATIONAL NORMALIZED RATIO 2.95 (0.93-1.1); PROTHROMBIN TIME 30.9 Seconds (9.6-11.5)
[2020-12-11 07:57] VITALS: BP 105/75
[2020-12-11] MEDS: FAMOTIDINE 20 MG TABLET PO SCH ×2 (08:08→20:05)
[2020-12-11] MEDS: SIMETHICONE DROPS 40 MG/0.6 ML BOTTLE PO PRN (08:08)
[2020-12-11] MEDS: CHOLECALCIFEROL 5,000u TAB PO SCH (08:09)
[2020-12-11] MEDS: SODIUM CHLORIDE FLUSH 10ML SYR IVF SCH ×2 (08:09→20:16)
[2020-12-11] MEDS: OXYBUTYNIN CHLORIDE 5 MG TABLET PO SCH ×2 (08:09→20:05)
[2020-12-11] MEDS: FERROUS GLUCONATE 324 MG TABLET PO SCH ×2 (08:09→17:08)
[2020-12-11] MEDS: LUBIPROSTONE 24 MCG CAPSULE PO SCH ×2 (08:10→20:05)
[2020-12-11] MEDS: SENNA/DOCUSATE TABLET PO SCH (08:10)
[2020-12-11] MEDS: LACTULOSE 10 GM/15 ML UDC PO SCH ×2 (08:10→20:10)
[2020-12-11] MEDS: POLYETHYLENE GLYCOL 17 GM PACKET PO SCH ×2 (08:10→20:10)
[2020-12-11] MEDS: SCOPOLAMINE PATCH, 1.5MG PATCH.TD72 TD SCH (11:00)
[2020-12-11] MEDS: LIDODERM 5% PATCH TD SCH (12:00)
[2020-12-11 13:10] VITALS: BP 105/67
[2020-12-11] MEDS ORDERED: WARFARIN 2 MG TABLET PO-COUM ONE (18:00)
[2020-12-11 20:00] VITALS: BP 131/86
[2020-12-11] MEDS: ATORVASTATIN 40 MG TABLET PO SCH (20:05)
[2020-12-11] MEDS: ALBUTEROL-IPRATROPIUM MDI INH INH PRN (20:35)
[2020-12-12] MEDS: TRAZODONE 50MG TABLET PO SCH ×2 (00:27→20:22)
[2020-12-12] MEDS: ONDANSETRON 2MG/ML, 2ML IVPush PRN ×3 (01:49→18:00)
[2020-12-12 02:21] VITALS: BP 116/67
[2020-12-12 05:37] LABS: INTERNATIONAL NORMALIZED RATIO 3.04 (0.93-1.1); PROTHROMBIN TIME 31.8 Seconds (9.6-11.5)
[2020-12-12 05:55] VITALS: BP 116/63
[2020-12-12] MEDS: LEVOTHYROXINE 75 MCG TABLET PO SCH (05:55)
[2020-12-12] MEDS: ASPIRIN 81 MG TABLET EC PO SCH (05:56)
[2020-12-12] MEDS: OXYcodone IR 5MG TABLET PO PRN ×3 (05:56→23:03)
[2020-12-12 08:19] VITALS: BP 113/74
[2020-12-12] MEDS: FERROUS GLUCONATE 324 MG TABLET PO SCH ×2 (08:33→18:00)
[2020-12-12] MEDS: SIMETHICONE DROPS 40 MG/0.6 ML BOTTLE PO PRN ×2 (08:33→20:32)
[2020-12-12] MEDS: LUBIPROSTONE 24 MCG CAPSULE PO SCH ×2 (08:34→20:23)
[2020-12-12] MEDS: OXYBUTYNIN CHLORIDE 5 MG TABLET PO SCH ×2 (08:34→20:21)
[2020-12-12] MEDS: CHOLECALCIFEROL 5,000u TAB PO SCH (08:34)
[2020-12-12] MEDS: POLYETHYLENE GLYCOL 17 GM PACKET PO SCH ×2 (08:34→20:23)
[2020-12-12] MEDS: METHOCARBAMOL 500 MG TABLET PO PRN ×2 (08:34→18:00)
[2020-12-12] MEDS: FAMOTIDINE 20 MG TABLET PO SCH ×2 (08:34→20:23)
[2020-12-12] MEDS: LACTULOSE 10 GM/15 ML UDC PO SCH ×2 (08:34→20:23)
[2020-12-12] MEDS: SENNA/DOCUSATE TABLET PO SCH (08:35)
[2020-12-12] MEDS: SODIUM CHLORIDE FLUSH 10ML SYR IVF SCH ×2 (08:35→20:22)
[2020-12-12] MEDS: LIDODERM 5% PATCH TD SCH (12:00)
[2020-12-12 13:05] VITALS: BP 107/57
[2020-12-12] MEDS ORDERED: WARFARIN 1 MG TABLET PO-COUM ONE (18:00)
[2020-12-12 20:04] VITALS: BP 107/70
[2020-12-12] MEDS: ATORVASTATIN 40 MG TABLET PO SCH (20:22)
[2020-12-12] MEDS: LIDODERM REMOVE PATCH NOTE XX SCH ×2 (23:59)
[2020-12-13 01:27] VITALS: BP 106/64
[2020-12-13] MEDS: ONDANSETRON 2MG/ML, 2ML IVPush PRN ×3 (04:04→20:38)
[2020-12-13] MEDS: ASPIRIN 81 MG TABLET EC PO SCH (05:50)
[2020-12-13] MEDS: LEVOTHYROXINE 75 MCG TABLET PO SCH (05:50)
[2020-12-13 06:51] LABS: INTERNATIONAL NORMALIZED RATIO 2.57 (0.93-1.1)
[2020-12-13 07:07] VITALS: BP 144/127
[2020-12-13] MEDS: LACTULOSE 10 GM/15 ML UDC PO SCH ×2 (08:02→20:46)
[2020-12-13] MEDS: SENNA/DOCUSATE TABLET PO SCH (08:02)
[2020-12-13] MEDS: POLYETHYLENE GLYCOL 17 GM PACKET PO SCH ×3 (08:02→20:46)
[2020-12-13] MEDS: LUBIPROSTONE 24 MCG CAPSULE PO SCH ×3 (08:10→20:46)
[2020-12-13] MEDS: OXYBUTYNIN CHLORIDE 5 MG TABLET PO SCH ×2 (08:11→20:38)
[2020-12-13] MEDS: OXYcodone IR 5MG TABLET PO PRN ×2 (08:11→16:12)
[2020-12-13] MEDS: SODIUM CHLORIDE FLUSH 10ML SYR IVF SCH ×2 (08:11→20:38)
[2020-12-13] MEDS: FAMOTIDINE 20 MG TABLET PO SCH ×3 (08:11→20:38)
[2020-12-13] MEDS: FERROUS GLUCONATE 324 MG TABLET PO SCH ×2 (08:11→16:11)
[2020-12-13] MEDS: CHOLECALCIFEROL 5,000u TAB PO SCH (08:11)
[2020-12-13] MEDS: LIDODERM 5% PATCH TD SCH (12:00)
[2020-12-13 13:44] VITALS: BP 92/66
[2020-12-13 16:07] VITALS: BP 124/75
[2020-12-13] MEDS ORDERED: WARFARIN 2 MG TABLET PO-COUM ONE (18:00)
[2020-12-13] MEDS: ATORVASTATIN 40 MG TABLET PO SCH (20:38)
[2020-12-13] MEDS: TRAZODONE 50MG TABLET PO SCH (20:38)
[2020-12-13 21:20] VITALS: BP 125/89
[2020-12-13] MEDS: LIDODERM REMOVE PATCH NOTE XX SCH (23:56)
[2020-12-14 02:51] VITALS: BP 110/79
[2020-12-14] MEDS: LEVOTHYROXINE 75 MCG TABLET PO SCH (05:01)
[2020-12-14] MEDS: ASPIRIN 81 MG TABLET EC PO SCH (05:01)
[2020-12-14 05:30] LABS: INTERNATIONAL NORMALIZED RATIO 2.11 (0.93-1.1); PROTHROMBIN TIME 22.2 Seconds (9.6-11.5)
[2020-12-14 06:38] VITALS: BP 106/64
[2020-12-14] MEDS: POLYETHYLENE GLYCOL 17 GM PACKET PO SCH ×2 (09:00→21:00)
[2020-12-14] MEDS: LUBIPROSTONE 24 MCG CAPSULE PO SCH ×2 (09:00→22:27)
[2020-12-14] MEDS: SENNA/DOCUSATE TABLET PO SCH (09:00)
[2020-12-14] MEDS: LACTULOSE 10 GM/15 ML UDC PO SCH ×2 (09:00→21:00)
[2020-12-14 09:15] VITALS: BP 110/71
[2020-12-14] MEDS: FERROUS GLUCONATE 324 MG TABLET PO SCH ×2 (09:16→17:25)
[2020-12-14] MEDS: CHOLECALCIFEROL 5,000u TAB PO SCH (09:16)
[2020-12-14] MEDS: FAMOTIDINE 20 MG TABLET PO SCH ×2 (09:16→22:27)
[2020-12-14] MEDS: OXYBUTYNIN CHLORIDE 5 MG TABLET PO SCH ×2 (09:17→22:27)
[2020-12-14] MEDS: OXYcodone IR 5MG TABLET PO PRN ×2 (09:17→22:28)
[2020-12-14] MEDS: SODIUM CHLORIDE FLUSH 10ML SYR IVF SCH ×2 (09:18→21:00)
[2020-12-14] MEDS: SCOPOLAMINE PATCH, 1.5MG PATCH.TD72 TD SCH (10:58)
[2020-12-14] MEDS: LIDODERM 5% PATCH TD SCH (11:45)
[2020-12-14 12:27] VITALS: BP 91/57
[2020-12-14] MEDS ORDERED: WARFARIN 2.5 MG TABLET PO-COUM ONE (18:00)
[2020-12-14 18:16] VITALS: BP 123/78
[2020-12-14] MEDS: TRAZODONE 50MG TABLET PO SCH (22:27)
[2020-12-14] MEDS: ATORVASTATIN 40 MG TABLET PO SCH (22:27)
[2020-12-14] MEDS: METHOCARBAMOL 500 MG TABLET PO PRN (22:30)
[2020-12-14] MEDS: MELATONIN 5 MG TABLET PO PRN (22:30)
[2020-12-14] MEDS: SIMETHICONE DROPS 40 MG/0.6 ML BOTTLE PO PRN (22:34)
[2020-12-15] MEDS: LIDODERM REMOVE PATCH NOTE XX SCH
[2020-12-15 00:53] VITALS: BP 110/78
[2020-12-15] MEDS: ONDANSETRON 2MG/ML, 2ML IVPush PRN ×2 (01:21→11:06)
[2020-12-15] MEDS: MELATONIN 5 MG TABLET PO PRN (01:27)
[2020-12-15 05:31] LABS: INTERNATIONAL NORMALIZED RATIO 1.83 (0.93-1.1); PROTHROMBIN TIME 19.3 Seconds (9.6-11.5)
[2020-12-15] MEDS: LEVOTHYROXINE 75 MCG TABLET PO SCH (06:15)
[2020-12-15] MEDS: ASPIRIN 81 MG TABLET EC PO SCH (06:15)
[2020-12-15] MEDS: OXYcodone IR 5MG TABLET PO PRN ×2 (06:41→14:35)
[2020-12-15 07:26] VITALS: BP 132/78
[2020-12-15] MEDS: POLYETHYLENE GLYCOL 17 GM PACKET PO SCH (09:00)
[2020-12-15] MEDS: FAMOTIDINE 20 MG TABLET PO SCH (09:00)
[2020-12-15] MEDS: SENNA/DOCUSATE TABLET PO SCH (09:00)
[2020-12-15] MEDS: LACTULOSE 10 GM/15 ML UDC PO SCH (09:00)
[2020-12-15] MEDS: SODIUM CHLORIDE FLUSH 10ML SYR IVF SCH (10:10)
[2020-12-15] MEDS: LUBIPROSTONE 24 MCG CAPSULE PO SCH (10:13)
[2020-12-15] MEDS: OXYBUTYNIN CHLORIDE 5 MG TABLET PO SCH (10:14)
[2020-12-15] MEDS: FERROUS GLUCONATE 324 MG TABLET PO SCH (10:17)
[2020-12-15] MEDS: CHOLECALCIFEROL 5,000u TAB PO SCH (10:20)
[2020-12-15] MEDS ORDERED: METH-639 PO (11:52)
[2020-12-15] MEDS ORDERED: OXYC5TAB98 PO (11:52)
[2020-12-15] MEDS ORDERED: OXYB5TAB10 PO (11:52)
[2020-12-15] MEDS ORDERED: SCOP1PAT11 TD (11:52)
[2020-12-15] MEDS ORDERED: TRAM50TA2 PO (11:52)
[2020-12-15] MEDS ORDERED: LUBI24CA7 PO (11:52)
[2020-12-15] MEDS ORDERED: MELA5TAB14 PO (11:52)
[2020-12-15] MEDS: LIDODERM 5% PATCH TD SCH (13:34)
[2020-12-15 14:00] VITALS: BP 115/67
[2020-12-15] MEDS ORDERED: WARFARIN 3 MG TABLET PO-COUM SCH (18:00)
== END 2020-12-15 14:41 | DRG 308 ==
LOC: ED 17:06 → EDIP 17:46 → 5SO 20:22 → 4NW 10-12 23:03 → 4NE 10-18 15:40 → 3N 10-24 12:51
PROVIDERS: ADMIT Hospitalist; ATTEND Family Medicine
PROC: 0T9B70Z Drainage of Bladder with Drainage Device, Via Natural or Artificial Opening (ICD-10-PCS; principal; 2020-11-14)
DX: I48.0 Paroxysmal atrial fibrillation (principal); I50.33 Acute on chronic diastolic (congestive) heart failure; E87.1 Hypo-osmolality and hyponatremia; E46 Unspecified protein-calorie malnutrition; N39.0 Urinary tract infection, site not specified; J96.11 Chronic respiratory failure with hypoxia; L03.115 Cellulitis of right lower limb; Z16.12 Extended spectrum beta lactamase (ESBL) resistance; I11.0 Hypertensive heart disease with heart failure; I48.20 Chronic atrial fibrillation, unspecified; D50.9 Iron deficiency anemia, unspecified; E53.8 Deficiency of other specified B group vitamins; E66.01 Morbid (severe) obesity due to excess calories; G47.00 Insomnia, unspecified; G89.29 Other chronic pain; H54.7 Unspecified visual loss; I25.10 Atherosclerotic heart disease of native coronary artery without angina pectoris; I45.10 Unspecified right bundle-branch block; I87.8 Other specified disorders of veins; E03.9 Hypothyroidism, unspecified; I95.9 Hypotension, unspecified; R53.81 Other malaise; M19.012 Primary osteoarthritis, left shoulder; J39.8 Other specified diseases of upper respiratory tract; M25.532 Pain in left wrist; Z68.35 Body mass index [BMI] 35.0-35.9, adult; I89.0 Lymphedema, not elsewhere classified; B96.1 Klebsiella pneumoniae [K. pneumoniae] as the cause of diseases classified elsewhere; K56.41 Fecal impaction; K59.81 Ogilvie syndrome; L89.159 Pressure ulcer of sacral region, unspecified stage; Z53.20 Procedure and treatment not carried out because of patient's decision for unspecified reasons; Z74.01 Bed confinement status; Z86.711 Personal history of pulmonary embolism; Z86.718 Personal history of other venous thrombosis and embolism; Z87.891 Personal history of nicotine dependence; Z91.19 Patient's noncompliance with other medical treatment and regimen; Z95.828 Presence of other vascular implants and grafts; Z98.84 Bariatric surgery status; Z79.01 Long term (current) use of anticoagulants; Z88.1 Allergy status to other antibiotic agents; Z88.8 Allergy status to other drugs, medicaments and biological substances
CPT/HCPCS: 36415; 71045; 71250; 74018; 74176; 74177; 74270; 76705; 76770; 78452; 80048; 80053; 80061; 80202; 81001; 82607; 82728; 82962; 83540; 83550; 83735; 83880; 84100; 84145; 84484; 85025; 85610; 87040; 87077; 87086; 87186; 93005; 93017; 93306; 94640; 96374; 99285; G0378; J0295; J1756; J1940; J2185; J2405; J2785; J3370; Q0162; Q9963; Q9967; A9502; J3420; J3475; J7030; J7040; J7050; Q0177